=== PATIENT | female | born 1935 | race Caucasian/White ===

== ENCOUNTER 2017-12-01 17:30 | Inpatient (IN) | payer OTHER ==
[2017-12-01] MEDS ORDERED: ACETAMINOPHEN 1000 MG/100 ML VIAL (NON FORMULARY) IVPB ONE (18:50)
--- NOTE | 2017-12-01 18:58 | PDOC ---
History of Present Illness - General Chief Complaint: Shortness of Breath Stated Complaint: DIFFICULTY BREATHING Time Seen by Provider: 12/01/17 18:58 - History of Present Illness Initial Comments: 12/01/17 19:50 The patient is an 82 year old female with a history of HTN, HLD, Afib, Anemia who presents for evaluation of shortness of breath. The patient is somewhat of a poor historian on exam, but reports a several week history of worsening SOB. She states that she was recently diagnosed with a pneumonia, but notes worsening SOB, fevers, and chills despite outpatient management prompting her presentation to the ED for further evaluation. She otherwise denies chest pain , nausea, vomiting, abdominal pain, or changes with urination or bowel movements. Past History - Past Medical History Allergies/Adverse Reactions: Allergies Allergy/AdvReac Type Severity Reaction Status Date / Time Iodine and Iodide Containing Allergy Intermediate Difficulty Verified 12/01/17 17:41 Produc Breathing shrimp Allergy Intermediate Difficulty Verified 12/01/17 17:41 Breathing Penicillins Allergy Verified 12/01/17 17:41 kiwi AdvReac Intermediate Hives Verified 12/01/17 17:41 Home Medications: Ambulatory Orders Albuterol 2.5/Ipratropium 0.5 [Duoneb -] 1 amp NEB RQID #120 amp 09/11/17 Albuterol Sulfate 0.042% [Ventolin 0.042% (Half-Strength) -] 1 amp NEB Q4H PRN # 1 amp 09/11/17 Montelukast Sodium [Singulair] 10 mg PO DAILY #30 tablet 09/11/17 Diltiazem [Cardizem -] 240 mg PO HS 11/16/17 Apixaban [Eliquis] 2.5 mg PO DAILY 12/01/17 Ferrous Sulfate 324 mg PO DAILY 12/01/17 Fluticasone/Vilanterol [Breo Ellipta 100-25 Mcg INH] 1 each IH DAILY PRN Furosemide [Lasix] 80 mg PO DAILY 12/01/17 Metoprolol Tartrate [Lopressor -] 50 mg PO BID 12/01/17 Omeprazole 40 mg PO DAILY 12/01/17 Paroxetine HCl 10 mg PO DAILY 12/01/17 Anemia: Yes (blood trasfusion) Asthma: Yes Cardiac Disorders: Yes (a-fib) COPD: No HTN: Yes Hypercholesterolemia: Yes - Suicide/Smoking/Psychosocial Hx Smoking History: Never smoked Have you smoked in the past 12 months: No Information on smoking cessation initiated: No Hx Alcohol Use: No Drug/Substance Use Hx: No Substance Use Type: None Hx Substance Use Treatment: No Review of Systems - Review of Systems Comments:: 12/01/17 19:53 Constitutional: Fevers, Chills. No fatigue, malaise HEENT: No Rhinorrhea, nasal congestion, visual changes Cardiovascular: No syncope, palpitations, lightheadedness Respiratory: SOB. No Cough, Hemoptysis, Gastrointestinal: No Abdominal pain, Nausea, Vomiting, Constipation, Diarrhea, Melena Genitourinary: No Dysuria, Frequency, Urgency, Hesitancy, Hematuria, Flank pain Musculoskeletal: No Myalgia, arthralgia Skin: No rashes, itching, bruising, pallor Neurologic: No Headache, Dizziness, Numbness, Weakness, or Tingling Psychiatric: No Hallucinations. No SI or HI *Physical Exam - Vital Signs Last Vital Signs Temp Pulse Resp BP Pulse Ox 102.3 F H 106 H 24 130/68 97 12/01/17 18:18 12/01/17 18:48 12/01/17 18:48 12/01/17 18:48 12/01/17 18:48 - Physical Exam Comments: 12/01/17 19:54 General Appearance: Nourished. In Mild Apparent Distress HEENT: EOMI, HILDA. No Pharyngeal Erythema, Tonsillar Exudate, Tonsillar Erythema Neck: No Cervical Lymphadenopathy Respiratory/Chest: Crackles noted to the Right lung base on exam. No Rhonchi, Wheezing Cardiovascular: Regular Rhythm, Regular Rate. No Murmur, Gallops, Rubs Gastrointestinal/Abdominal: Normal Bowel Sounds, Soft. No Guarding, Rebound, Tenderness Musculoskeletal: No CVA Tenderness Extremity: 1+ pitting edema in the lower extremities bilaterally. Normal Capillary Refill Integumentary: Normal Color, Dry, Warm Neurologic: Fully Oriented, Alert, Normal Mood/Affect, Normal Response, ED Treatment Course - LABORATORY CBC & Chemistry Diagram: 12/01/17 18:56 12/01/17 18:56 Medical Decision Making - Medical Decision Making 12/01/17 19:55 The patient is an 82 year old female with a history of HTN, HLD, Afib, Anemia who presents for evaluation of shortness of breath. Differential includes but is not limited to: Pneumonia, Sepsis, Infectious, Metabolic Derangement. Given the patient's history and physical exam, it is likely her symptoms are due to sepsis due to pneumonia. We will obtain a cbc, cmp, vbg, lactate, blood cultures, ua, urine cultures, ekg, chest plain film to evaluate further for possible etiologies. Chest plain film demonstrates a right lower lobe infiltrate as preliminarily read by ER physician. We will treat with iv fluids , iv tylenol, vanc, and levaquin and continue to monitor and reassess while here in the ED. The patient will likely require admission for further management. 12/01/17 21:18 CBC demonstrates a wbc to 20.2. CMP is unremarkable. lactate is elevated to 2.5. We discussed the case with the hospitalist team who accepted the patient for admission. We will continue to monitor and reassess while here in the ED. *DC/Admit/Observation/Transfer Diagnosis at time of Disposition: Sepsis Qualifiers: Sepsis type: sepsis due to unspecified organism Qualified Code(s): A41.9 - Sepsis, unspecified organism Pneumonia Qualifiers: Pneumonia type: due to unspecified organism Laterality: unspecified laterality Lung location: unspecified part of lung Qualified Code(s): J18.9 - Pneumonia, unspecified organism - Discharge Dispostion Condition at time of disposition: Stable Decision to Admit order: Yes - Referrals - Patient Instructions - Post Discharge Activity
[2017-12-01] MEDS ORDERED: ACETAMINOPHEN INJECTION 100 ML IVPB ONE (19:08)
[2017-12-01] MEDS ORDERED: SODIUM CHLORIDE 1,000 ML IV STA (19:18)
--- NOTE | 2017-12-01 19:24 | PDOC ---
Attending Attestation - HPI HPI: 12/01/17 22:26 Pt is a 82 yo F, poor historian with PMHx of HTN, HLD, Afib, Anemia who presents to the ED for worsening SOB. Patient endorses associated fever and chills. Patient failed outpatient management of PNA and presents to the ED for further evaluation. Patient was recently admitted to [facility] for CHF in August 2017. <Deyanira Juarez - Last Filed: 12/01/17 22:27> - Resident Resident Name: Larry Figueroa - ED Attending Attestation I have performed the following: I have examined & evaluated the patient, The case was reviewed & discussed with the resident, I agree w/resident's findings & plan, Exceptions are as noted - HPI HPI: - Physicial Exam PE: 12/01/17 19:23 GENERAL: The patient is in no acute distress. LUNGS: Breath sounds equal, Crackles right base HEART: Irregularly irregular, normal S1 and S2 ABDOMEN: Soft, nontender, normoactive bowel sounds. NEUROLOGICAL: Cranial nerves II through XII grossly intact. Normal speech. No focal neurological deficits. SKIN: Warm, Dry, normal turgor, no rashes or lesions noted. 12/02/17 23:58 12/02/17 23:59 - Medical Decision Making 12/03/17 00:00 Laboratory Tests 12/01/17 12/01/17 12/01/17 18:50 18:56 18:56 WBC 20.7 H Hgb 11.4 D Hct 35.7 D Plt Count 410 Neutrophils % 90.7 H Neutrophils % (Manual) 86.0 H INR 1.28 H Lactic Acid 2.5 H* Alkaline Phosphatase Troponin I B-Natriuretic Peptide 12/01/17 12/01/17 12/01/17 18:56 18:56 18:56 WBC Hgb Hct Plt Count Neutrophils % Neutrophils % (Manual) INR Lactic Acid Alkaline Phosphatase 156 H Troponin I < 0.02 B-Natriuretic Peptide 3187.78 H CXR: RLL infiltrate Will admit Antibiotics Clinical Impression: pneumonia, initial presentation <Martha Mancia - Last Filed: 12/03/17 00:00>
[2017-12-01] MEDS ORDERED: VANCOMYCIN 1,250 MG in DEXTROSE 5%-WATER - 250 ML IVPB ONE (19:25)
[2017-12-01 19:34] LABS: BASO % 0.2 % (0-2.0); EOS % 0.4 % (0-4.5); HEMATOCRIT 35.7 % (32.4-45.2); HEMOGLOBIN 11.4 GM/dL (10.7-15.3); MCH 26.8 pg (25.7-33.7); MCHC 32.1 g/dl (32.0-36.0); MEAN CELL VOLUME 83.6 fl (80-96); MONO % 4.7 % (3.8-10.2); NEUT % 90.7 % (42.8-82.8); PLATELET COUNT 410 K/MM3 (134-434); RBC 4.26 M/mm3 (3.60-5.2); RDW 15.8 % (11.6-15.6); WHITE BLOOD COUNT 20.7 K/mm3 (4.0-10.0)
[2017-12-01 19:53] LABS: INR 1.28 (0.82-1.09); PROTHROMBIN TIME (PATIENT) 14.5 SEC (9.7-13.0)
[2017-12-01 19:56] LABS: ACTIVATED PTT 25.8 SECONDS (25.2-36.5)
[2017-12-01 20:04] LABS: ALBUMIN 3.6 g/dl (3.4-5.0); ALK PHOS 156 U/L (45-117); ANION GAP 11 (8-16); BILIRUBIN,TOTAL 0.7 mg/dL (0.2-1.0); BLOOD UREA NITROGEN 22 mg/dL (7-18); CALCIUM 8.8 mg/dL (8.5-10.1); CHLORIDE 97 mmol/L (98-107); CO2 31 mmol/L (21-32); CREATININE 1.1 mg/dL (0.55-1.02); GLUCOSE,RANDOM 111 mg/dL (74-106); POTASSIUM 3.7 mmol/L (3.5-5.1); SGOT/AST 75 U/L (15-37); SGPT/ALT 64 U/L (12-78); SODIUM 139 mmol/L (136-145); TOT PROT 7.2 g/dl (6.4-8.2)
[2017-12-01 20:09] LABS: PLATELET ESTIMATE SLT INCREASE
[2017-12-01 20:29] LABS: URINE APPEARANCE CLEAR; URINE BILIRUBIN NEGATIVE (<2.0 mg/dL); URINE COLOR LTYELLOW; URINE GLUCOSE (UA) NEGATIVE (NEGATIVE); URINE KETONE NEGATIVE (NEGATIVE); URINE LEUK ESTERASE NEGATIVE (NEGATIVE); URINE NITRITE NEGATIVE (NEGATIVE); URINE UROBILINOGEN NEGATIVE mg/dL (0.2-1.0)
[2017-12-01 20:31] LABS: URINE PROTEIN 1+ (NEGATIVE)
[2017-12-01 20:32] LABS: URINE HYALINE CAST 4 /lpf; URINE MUCUS RARE
[2017-12-01] MEDS ORDERED: VANCOMYCIN 1 GRAM (PRE-DOCKED) 1,000 MG/250 ML BAG IVPB ONE (22:01)
--- NOTE | 2017-12-01 22:09 | HP ---
CHIEF COMPLAINT: headache, chest discomfort PCP: Anatoly HISTORY OF PRESENT ILLNESS: This is an 82 year old female with a significant PMH of Pneumonia in August who presented to the ED with shortness of breath, chest pain, headache. Pt also reports that she vomited today. ER course was notable for: (1) WBC 20.7 (2) CXR c/w PNA (3) lactic acid 2.5 Recent Travel: pt denies PAST MEDICAL HISTORY: HTN, HLD, afib, anemia, asthma, pneumonia PAST SURGICAL HISTORY: B/L cataract removal varicose vein surgery Social History: Smoking: pt denies Alcohol: pt denies Drugs: pt denies Family History: mother in her 80s, h/o asthma, "heart problems" father age 40, lung problem son age 51, [place] brother , liver disease, h/o ETOH Allergies Iodine and Iodide Containing Produc Allergy (Intermediate, Verified 12/01/17 17: 41) Difficulty Breathing shrimp Allergy (Intermediate, Verified 12/01/17 17:41) Difficulty Breathing Penicillins Allergy (Verified 12/01/17 17:41) kiwi Adverse Reaction (Intermediate, Verified 12/01/17 17:41) Hives HOME MEDICATIONS: 3 Medication Instructions Recorded Albuterol 2.5/Ipratropium 0.5 1 amp NEB RQID #120 amp 09/11/17 [Duoneb -] Albuterol Sulfate 0.042% [Ventolin 1 amp NEB Q4H PRN #1 amp 09/11/17 0.042% (Half-Strength) -] Montelukast Sodium [Singulair] 10 mg PO DAILY #30 tablet 09/11/17 Diltiazem [Cardizem -] 240 mg PO HS 11/16/17 Apixaban [Eliquis] 2.5 mg PO DAILY 12/01/17 Ferrous Sulfate 324 mg PO DAILY 12/01/17 Fluticasone/Vilanterol [Breo 1 each IH DAILY PRN 12/01/17 Ellipta 100-25 Mcg INH] Furosemide [Lasix] 80 mg PO DAILY 12/01/17 Metoprolol Tartrate [Lopressor -] 50 mg PO BID 12/01/17 Omeprazole 40 mg PO DAILY 12/01/17 Paroxetine HCl 10 mg PO DAILY 12/01/17 REVIEW OF SYSTEMS CONSTITUTIONAL: Present: generalized weakness, malaise Absent: fever, chills, diaphoresis, loss of appetite, weight change HEENT: Absent: rhinorrhea, nasal congestion, throat pain, throat swelling, difficulty swallowing, mouth swelling, ear pain, eye pain, visual changes CARDIOVASCULAR: Present: chest pain Absent: syncope, palpitations, irregular heart rate, lightheadedness, peripheral edema RESPIRATORY: Present: cough, shortness of breath Absent: dyspnea with exertion, orthopnea, wheezing, stridor, hemoptysis GASTROINTESTINAL: Present: vomiting Absent: abdominal pain, abdominal distension, nausea, diarrhea, constipation, melena, hematochezia GENITOURINARY: Absent: dysuria, frequency, urgency, hesitancy, hematuria, flank pain, genital pain MUSCULOSKELETAL: Absent: myalgia, arthralgia, joint swelling, back pain, neck pain SKIN: Absent: rash, itching, pallor HEMATOLOGIC/IMMUNOLOGIC: Absent: easy bleeding, easy bruising, lymphadenopathy, frequent infections ENDOCRINE: Absent: unexplained weight gain, unexplained weight loss, heat intolerance, cold intolerance NEUROLOGIC: Absent: headache, focal weakness or paresthesias, dizziness, unsteady gait, seizure, mental status changes, bladder or bowel incontinence PSYCHIATRIC: Absent: anxiety, depression, suicidal or homicidal ideation, hallucinations. PHYSICAL EXAMINATION Vital Signs - 24 hr 3 12/01/17 12/01/17 12/01/17 17:37 18:00 18:18 Temperature 102.3 F H Pulse Rate 78 102 H Pulse Rate [ 104 H Apical] Respiratory 28 H 20 20 Rate Blood Pressure 130/70 Blood Pressure 136/63 [Right Arm] O2 Sat by Pulse 100 96 96 Oximetry (%) 3 12/01/17 18:48 Temperature Pulse Rate Pulse Rate [ 106 H Apical] Respiratory 24 Rate Blood Pressure Blood Pressure 130/68 [Right Arm] O2 Sat by Pulse 97 Oximetry (%) GENERAL: Awake, alert, and fully oriented, in no acute distress. HEAD: Normal with no signs of trauma. EYES: Pupils equal, round and reactive to light, extraocular movements intact, sclera anicteric, conjunctiva clear. No lid lag. EARS, NOSE, THROAT: Ears normal, nares patent, oropharynx clear without exudates. Moist mucous membranes. NECK: Normal range of motion, supple without lymphadenopathy, JVD, or masses. LUNGS: Breath sounds equal, clear to auscultation bilaterally. No wheezes, and no crackles. No accessory muscle use. diminished bases HEART: Irregular rate and rhythm, normal S1 and S2 without murmur, rub or gallop. ABDOMEN: Soft, nontender, not distended, normoactive bowel sounds, no guarding, no rebound, no masses. No hepatomegaly or splenomegaly. MUSCULOSKELETAL: Normal range of motion at all joints. No bony deformities or tenderness. No CVA tenderness. UPPER EXTREMITIES: 2+ pulses, warm, well-perfused. No cyanosis. No clubbing. No peripheral edema. LOWER EXTREMITIES: 2+ pulses, warm, well-perfused. No calf tenderness. No peripheral edema. NEUROLOGICAL: Cranial nerves II-XII intact. Normal speech. Normal gait. PSYCHIATRIC: Cooperative. Good eye contact. Appropriate mood and affect. SKIN: Warm, dry, normal turgor, no rashes or lesions noted, normal capillary refill. Laboratory Results - last 24 hr 3 12/01/17 12/01/17 12/01/17 18:56 18:56 18:56 WBC 20.7 H RBC 4.26 Hgb 11.4 D Hct 35.7 D MCV 83.6 MCH 26.8 MCHC 32.1 RDW 15.8 H D Plt Count 410 MPV 8.0 Absolute Neuts (auto) 18.8 Neutrophils % 90.7 H Neutrophils % (Manual) 86.0 H Band Neutrophils % 7.0 Lymphocytes % 4.0 L D Lymphocytes % (Manual) 4.0 L D Monocytes % 4.7 D Monocytes % (Manual) 3 L Eosinophils % 0.4 D Basophils % 0.2 Nucleated RBC % 0 Platelet Estimate Slt increase Platelet Comment No clumping noted PT with INR 14.50 H INR 1.28 H PTT (Actin FS) 25.8 L Sodium 139 Potassium 3.7 Chloride 97 L Carbon Dioxide 31 Anion Gap 11 BUN 22 H Creatinine 1.1 H Creat Clearance w eGFR 47.55 Random Glucose 111 H Lactic Acid 2.5 H* Calcium 8.8 Total Bilirubin 0.7 D AST 75 H ALT 64 Alkaline Phosphatase 156 H Troponin I < 0.02 B-Natriuretic Peptide 3187.78 H Total Protein 7.2 Albumin 3.6 Urine Color Urine Appearance Urine pH Ur Specific [place] Urine Protein Urine Glucose (UA) Urine Ketones Urine Blood Urine Nitrite Urine Bilirubin Urine Urobilinogen Ur Leukocyte Esterase Urine WBC (Auto) Urine RBC (Auto) Hyaline Casts Urine Mucus 3 Urine Color Ltyellow 12/01/17 20:18 Urine Appearance Clear 12/01/17 20:18 Urine pH 5.0 (5.0-8.0) 12/01/17 20:18 Ur Specific [place] 1.011 (1.001-1.035) 12/01/17 20:18 Urine Protein 1+ (NEGATIVE) H 12/01/17 20:18 Urine Glucose (UA) Negative (NEGATIVE) 12/01/17 20:18 Urine Ketones Negative (NEGATIVE) 12/01/17 20:18 Urine Blood 1+ (NEGATIVE) H 12/01/17 20:18 Urine Nitrite Negative (NEGATIVE) 12/01/17 20:18 Urine Bilirubin Negative (<2.0 mg/dL) 12/01/17 20:18 Ur Leukocyte Esterase Negative (NEGATIVE) 12/01/17 20:18 Urine WBC (Auto) 2 Urine RBC (Auto) 3 Hyaline Casts 4 Urine Mucus Rare 12/01/17 20:18 ECG atrial fibrillation vent rate 94, QTC [address]/T wave changes low voltage qrs Radiology Reports CXR portable possible infiltrate RLL, + vascular congestion, final read pending ASSESSMENT/PLAN: 82yF with PMH HTN, HLD, afib, anemia, asthma, pneumonia presented to the ED with headache, chest discomfort, fever, cough. Sepsis secondary to Pneumonia - levaquin and vancomycin given in ED, will cont levaquin daily, renal dose 750 QOD - lactic acid slightly elevated, given IVF, repeat ordered, will hold on further IVF as CXR appears congested - tylenol for fever - follow cultures asthma - cont home breo-ellipta or convert to formulary equivalent - cont duonebs PRN - cont singular chest pain - likely due to pna - monitor on tele given HTN, HLD, afib history - trend troponins Afib - cont home meds for rate control - cont eliquis, unsure why she is only on 2.5mg, f/u with PCP regarding dose HTN/HLD - cont home meds DVT PPX - cont home eliquis FEN - hold IV fluids, encourage po - BMP in am - low sodium diet as tolerated Dispo: Pt currently requires further inpatient management of her emergent condition Visit type - Emergency Visit Emergency Visit: Yes ED Registration Date: 12/01/17 Care time: The patient presented to the Emergency Department on the above date and was hospitalized for further evaluation of their emergent condition. - New Patient This patient is new to me today: Yes Date on this admission: 12/01/17 - Critical Care Critical Care patient: No Hospitalist Screening - Colonoscopy Questionnaire Colonoscopy Questionnaire: Colonoscopy Questionnaire - Patient: 50 - 75 years old and never had a screening colonoscopy: No History of colon or rectal polyps, or CA: Unknown History of IBD, Crohn's disease or UC: Unknown History of abdominal radiation therapy as a child: Unknown - Relative: 1 with colon or rectal CA, or polyps at age 60 or younger: Unknown Colon or rectal CA diagnosed at age 45 or younger: Unknown Multiple relatives with colon or rectal CA: Unknown - Outcome: Screening Result: Negative Screen
[2017-12-01] MEDS: METOPROLOL TARTRATE 50 MG TABLET (FP) PO SCH (22:26)
[2017-12-02] MEDS: APIXABAN 2.5 MG TABLET PO SCH ×3 (00:40→21:07)
[2017-12-02] MEDS: MONTELUKAST NA 10 MG TABLET PO SCH ×2 (00:40→21:07)
[2017-12-02] MEDS: ALBUTEROL SO4 2.5/IPRATROPIUM 0.5 INH SOL 3 ML VIAL.NEB. NEB PRN ×2 (01:34→21:51)
[2017-12-02] MEDS ORDERED: ONDANSETRON 4 MG/2 ML VIAL IVPB PRN (01:34)
[2017-12-02] MEDS: ACETAMINOPHEN 325 MG TABLET (FP) PO PRN (02:21)
[2017-12-02 08:04] LABS: BASO % 0.2 % (0-2.0); HEMOGLOBIN 10.4 GM/dL (10.7-15.3); LYMPH % 4.9 % (8-40); MCH 27.3 pg (25.7-33.7); MCHC 32.5 g/dl (32.0-36.0); MEAN CELL VOLUME 83.8 fl (80-96); MEAN PLT VOLUME 7.4 fl (7.5-11.1); NEUT % 91.9 % (42.8-82.8); PLATELET COUNT 275 K/MM3 (134-434); RBC 3.82 M/mm3 (3.60-5.2); RDW 15.7 % (11.6-15.6); WHITE BLOOD COUNT 17.2 K/mm3 (4.0-10.0)
[2017-12-02 08:31] LABS: CHLORIDE 100 mmol/L (98-107); POTASSIUM 3.6 mmol/L (3.5-5.1); SODIUM 139 mmol/L (136-145)
[2017-12-02 08:49] LABS: ANION GAP 9 (8-16); BLOOD UREA NITROGEN 21 mg/dL (7-18); CALCIUM 8.6 mg/dL (8.5-10.1); CO2 30 mmol/L (21-32); GLUCOSE,RANDOM 118 mg/dL (74-106); PHOSPHOROUS 3.8 mg/dL (2.5-4.9)
[2017-12-02 09:30] LABS: PLATELET ESTIMATE NORMAL
[2017-12-02] MEDS ORDERED: FUROSEMIDE 40 MG TABLET (FP) PO SCH (10:00)
[2017-12-02] MEDS: FERROUS SO4 325 MG TABLET (FP) PO SCH (10:10)
[2017-12-02] MEDS: PANTOPRAZOLE 40 MG TABLET (FP) PO SCH (10:10)
[2017-12-02] MEDS: METOPROLOL TARTRATE 50 MG TABLET (FP) PO SCH ×2 (10:10→21:07)
[2017-12-02] MEDS: PARoxetine HCL 10 MG TABLET (FP) PO SCH (11:26)
--- NOTE | 2017-12-02 12:45 | PN ---
Progress Note, Physician Chief Complaint: AWAKE ALERT FAMILY BEDSIDE SOB ON 02 SUPPORT - Current Medication List Current Medications: Active Medications Acetaminophen (Tylenol -) 650 mg PO Q4H PRN PRN Reason: FEVER Last Admin: 12/02/17 02:21 Dose: 650 mg Albuterol/Ipratropium (Duoneb -) 1 amp NEB Q6H PRN PRN Reason: ASTHMA Last Admin: 12/02/17 01:34 Dose: 1 amp Apixaban (Eliquis -) 2.5 mg PO BID [facility] Last Admin: 12/02/17 10:09 Dose: 2.5 mg Diltiazem HCl (Cardizem Cd -) 240 mg PO [facility] Last Admin: 12/01/17 22:25 Dose: Not Given Ferrous Sulfate (Feosol -) 325 mg PO DAILY [facility] Last Admin: 12/02/17 10:10 Dose: 325 mg Furosemide (Lasix -) 80 mg PO DAILY [facility] Last Admin: 12/02/17 10:10 Dose: 80 mg Levofloxacin (Levaquin 750 Mg Premixed Ivpb -) 750 mg in 150 mls @ 150 mls/hr IVPB Q48H [facility]; Protocol Metoprolol Tartrate (Lopressor -) 50 mg PO BID [facility] Last Admin: 12/02/17 10:10 Dose: 50 mg Montelukast Sodium (Singulair -) 10 mg PO [facility] Last Admin: 12/02/17 00:40 Dose: 10 mg Non-Formulary Medication (Fluticasone/Vilanterol [Breo Ellipta 100-25 Mcg Inh]) 1 each IH [facility] Ondansetron HCl (Zofran Injection) 4 mg IVPB Q6H PRN PRN Reason: NAUSEA Last Admin: 12/02/17 02:21 Dose: 4 mg Pantoprazole Sodium (Protonix -) 40 mg PO DAILY [facility] Last Admin: 12/02/17 10:10 Dose: 40 mg Paroxetine HCl (Paxil -) 10 mg PO DAILY [facility] Last Admin: 12/02/17 11:26 Dose: 10 mg - Objective Vital Signs: Vital Signs Temperature 97.9 F 12/02/17 10:00 Pulse Rate 78 12/02/17 10:00 Respiratory Rate 20 12/02/17 10:00 Blood Pressure 142/60 12/02/17 10:00 O2 Sat by Pulse Oximetry (%) 99 12/02/17 09:00 Constitutional: Yes: Mild Distress Eyes: Yes: WNL HENT: Yes: WNL Neck: Yes: WNL Cardiovascular: Yes: WNL Respiratory: Yes: Cough, On Nasal O2, SOB on Exertion Gastrointestinal: Yes: WNL Genitourinary: Yes: WNL Musculoskeletal: Yes: WNL Extremities: Yes: WNL Edema: Yes Edema: LLE: 1+, RLE: 1+ Peripheral Pulses WNL: Yes Integumentary: Yes: Pressure Ulcer Wound/Incision: Yes: Open to air (STAGE 2 ULCER LEFT LOWER EXTREMITY) Neurological: Yes: WNL ...Motor Strength: WNL Psychiatric: Yes: WNL Labs: CBC, BMP 12/02/17 07:30 12/02/17 07:30 INR, PTT INR 1.28 (0.82-1.09) H 12/01/17 18:56 Problem List - Problems (1) Pneumonia Code(s): J18.9 - PNEUMONIA, UNSPECIFIED ORGANISM Qualifiers: Pneumonia type: due to unspecified organism Laterality: unspecified laterality Lung location: unspecified part of lung Qualified Code(s): J18.9 - Pneumonia, unspecified organism (2) Sepsis Code(s): A41.9 - SEPSIS, UNSPECIFIED ORGANISM Qualifiers: Sepsis type: sepsis due to unspecified organism Qualified Code(s): A41.9 - Sepsis, unspecified organism (3) Acute kidney injury Code(s): N17.9 - ACUTE KIDNEY FAILURE, UNSPECIFIED (4) Anemia Code(s): D64.9 - ANEMIA, UNSPECIFIED Qualifiers: Anemia type: iron deficiency (5) Aortic stenosis Code(s): I35.0 - NONRHEUMATIC AORTIC (VALVE) STENOSIS Qualifiers: Cardiac valve disease etiology: nonrheumatic Qualified Code(s): I35.0 - Nonrheumatic aortic (valve) stenosis (6) CHF (congestive heart failure) Code(s): I50.9 - HEART FAILURE, UNSPECIFIED Qualifiers: Heart failure type: diastolic Heart failure chronicity: acute on chronic Qualified Code(s): I50.33 - Acute on chronic diastolic (congestive) heart failure (7) Dyspnea Code(s): R06.00 - DYSPNEA, UNSPECIFIED (8) Leg ulcer Code(s): L97.909 - NON-PRS CHRONIC ULC UNSP PRT OF UNSP LOW LEG W UNSP SEVERITY (9) PAF (paroxysmal atrial fibrillation) Code(s): I48.0 - PAROXYSMAL ATRIAL FIBRILLATION Assessment/Plan CHECK ECHO FOR EF% CARDIOLOGY EVAL IV ABX NEBS 02 SUPPORT ULCER LEFT LEG WOUND CARE DVT PROPHYLAXIS ELEVATED LFT'S STATINS ON HOLD
[2017-12-02] MEDS: COLLAGENASE CLOSTRIDIUM HIST. 30 GRAMS TUBE TP SCH (13:50)
--- NOTE | 2017-12-02 19:38 | EKG ---
Test Reason : Blood Pressure : / mmHG Vent. Rate : 096 BPM Atrial Rate : 227 BPM P-R Int : 000 ms QRS Dur : 058 ms QT Int : 340 ms P-R-T Axes : 000 040 099 degrees QTc Int : 429 ms ATRIAL FIBRILLATION LOW VOLTAGE QRS SEPTAL INFARCT , AGE UNDETERMINED ABNORMAL ECG WHEN COMPARED WITH ECG OF 29-AUG-2017 18:23, ATRIAL FIBRILLATION HAS REPLACED SINUS RHYTHM SEPTAL INFARCT IS NOW PRESENT NONSPECIFIC T WAVE ABNORMALITY NOW EVIDENT IN INFERIOR LEADS NONSPECIFIC T WAVE ABNORMALITY NOW EVIDENT IN ANTERIOR LEADS Confirmed by POP REYES, MORENO ([id number]) on 12/02/2017 7:38:01 PM Referred By: Confirmed By:MORENO LORD MD
[2017-12-03 07:02] LABS: HEMATOCRIT 28.4 % (32.4-45.2); HEMOGLOBIN 9.5 GM/dL (10.7-15.3); MCH 27.9 pg (25.7-33.7); MCHC 33.4 g/dl (32.0-36.0); MEAN CELL VOLUME 83.3 fl (80-96); MEAN PLT VOLUME 7.6 fl (7.5-11.1); PLATELET COUNT 226 K/MM3 (134-434); RBC 3.41 M/mm3 (3.60-5.2); RDW 15.7 % (11.6-15.6); WHITE BLOOD COUNT 7.9 K/mm3 (4.0-10.0)
[2017-12-03 07:36] LABS: ALBUMIN 2.7 g/dl (3.4-5.0); ANION GAP 9 (8-16); BLOOD UREA NITROGEN 18 mg/dL (7-18); CALCIUM 8.4 mg/dL (8.5-10.1); CHLORIDE 98 mmol/L (98-107); CO2 32 mmol/L (21-32); CREATININE 0.9 mg/dL (0.55-1.02); GLUCOSE,RANDOM 108 mg/dL (74-106); POTASSIUM 3.5 mmol/L (3.5-5.1); SGOT/AST 40 U/L (15-37); SGPT/ALT 55 U/L (12-78); SODIUM 139 mmol/L (136-145)
[2017-12-03 07:38] LABS: ALK PHOS 99 U/L (45-117); BILIRUBIN,TOTAL 0.7 mg/dL (0.2-1.0); TOT PROT 5.8 g/dl (6.4-8.2)
[2017-12-03] MEDS: ALBUTEROL SO4 2.5/IPRATROPIUM 0.5 INH SOL 3 ML VIAL.NEB. NEB PRN (08:02)
--- NOTE | 2017-12-03 09:48 | CON.CARD ---
Consult Consult Specialty:: Cardiology for [place] Referred by:: Kyler Watts Reason for Consultation:: CHF, afib - History of Present Illness Chief Complaint: Dyspnea History of Present Illness: 82 year old female with a history of paroxysmal atrial fibrillation on Xarelto, hypertension, hyperlipidemia, asthma, anemia, diastolic CHF, mod admitted with fever, SOB, chest discomfort, fever and cough referable to RLL PNA, feels better today, denies palpitations, near or true syncope, orthopnea, PND or LE edema. Sees Berto Centeno in office. - History Source History Provided By: Patient Limitations to Obtaining History: No Limitations - Past Medical History Cardio/Vascular: Yes: AFIB, HTN, Hyperlipdemia Pulmonary: Yes: Asthma, Bronchitis - Past Surgical History Past Surgical History: Yes: Cataract Removal - Alcohol/Substance Use Hx Alcohol Use: No - Smoking History Smoking history: Never smoked Have you smoked in the past 12 months: No Home Medications - Allergies Allergies/Adverse Reactions: Allergies Allergy/AdvReac Type Severity Reaction Status Date / Time Iodine and Iodide Containing Allergy Intermediate Difficulty Verified 12/01/17 17:41 Produc Breathing shrimp Allergy Intermediate Difficulty Verified 12/01/17 17:41 Breathing Penicillins Allergy Verified 12/01/17 17:41 kiwi AdvReac Intermediate Hives Verified 12/01/17 17:41 - Home Medications Home Medications: Ambulatory Orders Albuterol 2.5/Ipratropium 0.5 [Duoneb -] 1 amp NEB RQID #120 amp 09/11/17 Albuterol Sulfate 0.042% [Ventolin 0.042% (Half-Strength) -] 1 amp NEB Q4H PRN # 1 amp 09/11/17 Montelukast Sodium [Singulair] 10 mg PO DAILY #30 tablet 09/11/17 Diltiazem [Cardizem -] 240 mg PO HS 11/16/17 Apixaban [Eliquis] 2.5 mg PO DAILY 12/01/17 Ferrous Sulfate 324 mg PO DAILY 12/01/17 Fluticasone/Vilanterol [Breo Ellipta 100-25 Mcg INH] 1 each IH DAILY PRN Furosemide [Lasix] 80 mg PO DAILY 12/01/17 Metoprolol Tartrate [Lopressor -] 50 mg PO BID 12/01/17 Omeprazole 40 mg PO DAILY 12/01/17 Paroxetine HCl 10 mg PO DAILY 12/01/17 Review of Systems - Review of Systems Constitutional: reports: Fever Cardiovascular: reports: Chest Pain Respiratory: reports: Cough, SOB Vital Signs: Vital Signs Temperature 98 F 12/03/17 05:34 Pulse Rate 108 H 12/03/17 05:34 Respiratory Rate 20 12/03/17 05:34 Blood Pressure 133/70 12/03/17 05:34 O2 Sat by Pulse Oximetry (%) 97 12/02/17 21:00 Constitutional: Yes: No Distress, Calm Neck: Yes: Supple Respiratory: Yes: Regular, Diminished, On Nasal O2 Gastrointestinal: Yes: Normal Bowel Sounds, Soft Cardiovascular: Yes: Pulse Irregular JVD: No Carotid Bruit: No Heart Sounds: Yes: S1, S2 Murmur: Yes: Systolic Murmur, Grade 2 Edema: No - Other Data Labs, Other Data: CBC, BMP 12/03/17 06:45 12/03/17 06:45 INR, PTT INR 1.28 (0.82-1.09) H 12/01/17 18:56 Afib @ 96 Ejection Fraction %: LVEF > or = 40 % Imaging - Results Chest X-ray: Report Reviewed (Right base infiltrate and fluid) Problem List - Problems (1) Hyperlipidemia Code(s): E78.5 - HYPERLIPIDEMIA, UNSPECIFIED Qualifiers: Hyperlipidemia type: pure hypercholesterolemia Qualified Code(s): E78.00 - Pure hypercholesterolemia, unspecified; E78.0 - Pure hypercholesterolemia (2) Diastolic heart failure Code(s): I50.30 - UNSPECIFIED DIASTOLIC (CONGESTIVE) HEART FAILURE Qualifiers: Heart failure chronicity: acute on chronic Qualified Code(s): I50.33 - Acute on chronic diastolic (congestive) heart failure (3) Hypertensive cardiopathy Code(s): I11.9 - HYPERTENSIVE HEART DISEASE WITHOUT HEART FAILURE Qualifiers: Heart failure presence: with heart failure (4) Pneumonia Code(s): J18.9 - PNEUMONIA, UNSPECIFIED ORGANISM Qualifiers: Pneumonia type: due to unspecified organism Laterality: unspecified laterality Lung location: unspecified part of lung Qualified Code(s): J18.9 - Pneumonia, unspecified organism (5) Aortic stenosis Code(s): I35.0 - NONRHEUMATIC AORTIC (VALVE) STENOSIS Qualifiers: Cardiac valve disease etiology: nonrheumatic Qualified Code(s): I35.0 - Nonrheumatic aortic (valve) stenosis (6) CHF (congestive heart failure) Code(s): I50.9 - HEART FAILURE, UNSPECIFIED Qualifiers: Heart failure type: diastolic Heart failure chronicity: acute on chronic Qualified Code(s): I50.33 - Acute on chronic diastolic (congestive) heart failure (7) Dyspnea Code(s): R06.00 - DYSPNEA, UNSPECIFIED Qualifiers: Dyspnea type: dyspnea on exertion Qualified Code(s): R06.09 - Other forms of dyspnea (8) PAF (paroxysmal atrial fibrillation) Code(s): I48.0 - PAROXYSMAL ATRIAL FIBRILLATION Assessment/Plan Echo 08/30/2017: Normal LV size, wall motion and systolic function. Normal RV. Normal LA and RA. Moderate aortic stenosis with ANDI = 0.77. Peak and mean gradients are 49 and 29 mmHg, respectively. Echo October 2017: Normal LV and RV size and fxn, mod (45/28 mmHg ANDI 0.6 cm^2), mild-mod TR, no pulm HTN 1. RLL PNA with leukocytosis improving 2. Moderate aortic valve stenosis 3. Chronic diastolic heart failure 4. Persistent atrial fibrillation rate-controlled on NOAC 5. Mild esophagitis P:1. BD, O2, empiric abx course per C&S, singulair 2. Continue Lopressor 50 bid, Cardizem 240 qhs, increase Eliquis 5 bid (wt>60 Kg , Cr<1.5,age>80), resume Lipitor 10 qhs as LFT abnl have resolved 3. Decrease diuresis with monitor diuretic response, renal fxn and electrolytes , GI prophylaxis 4. F/u with Dr. Centeno upon d/c, thank you for consultative opportunity
[2017-12-03] MEDS ORDERED: APIXABAN 2.5 MG TABLET PO SCH (10:06)
[2017-12-03] MEDS: METOPROLOL TARTRATE 50 MG TABLET (FP) PO SCH ×2 (10:35→21:34)
[2017-12-03] MEDS: COLLAGENASE CLOSTRIDIUM HIST. 30 GRAMS TUBE TP SCH (10:35)
[2017-12-03] MEDS: PANTOPRAZOLE 40 MG TABLET (FP) PO SCH (10:35)
[2017-12-03] MEDS: PARoxetine HCL 10 MG TABLET (FP) PO SCH (10:35)
[2017-12-03] MEDS: FERROUS SO4 325 MG TABLET (FP) PO SCH (10:35)
--- NOTE | 2017-12-03 11:47 | PN ---
Progress Note (short form) - Note Progress Note: PULMONARY CONSULTATION DICTATED 12/03/17 IMP RLL PNEUMONIA CHF AFIB H/O ASTHMA/BRONCHITIS ANEMIA ELEVATED LACTATE LEVEL HTN HLD PLAN IV ABX INHALED BRONCHODILATORS O2 LASIX CULTURES F/U CHEST X-RAYS TREND LACTATE CHEST CT URINARY ANTIGENS DR VALDES Problem List - Problems (1) Diastolic heart failure Code(s): I50.30 - UNSPECIFIED DIASTOLIC (CONGESTIVE) HEART FAILURE Qualifiers: Heart failure chronicity: acute on chronic Qualified Code(s): I50.33 - Acute on chronic diastolic (congestive) heart failure (2) Hyperlipidemia Code(s): E78.5 - HYPERLIPIDEMIA, UNSPECIFIED Qualifiers: Hyperlipidemia type: pure hypercholesterolemia Qualified Code(s): E78.00 - Pure hypercholesterolemia, unspecified; E78.0 - Pure hypercholesterolemia (3) Hypertensive cardiopathy Code(s): I11.9 - HYPERTENSIVE HEART DISEASE WITHOUT HEART FAILURE Qualifiers: Heart failure presence: with heart failure (4) Pneumonia Code(s): J18.9 - PNEUMONIA, UNSPECIFIED ORGANISM Qualifiers: Pneumonia type: due to unspecified organism Laterality: unspecified laterality Lung location: unspecified part of lung Qualified Code(s): J18.9 - Pneumonia, unspecified organism (5) Anemia Code(s): D64.9 - ANEMIA, UNSPECIFIED Qualifiers: Anemia type: iron deficiency (6) Aortic stenosis Code(s): I35.0 - NONRHEUMATIC AORTIC (VALVE) STENOSIS Qualifiers: Cardiac valve disease etiology: nonrheumatic Qualified Code(s): I35.0 - Nonrheumatic aortic (valve) stenosis (7) CHF (congestive heart failure) Code(s): I50.9 - HEART FAILURE, UNSPECIFIED Qualifiers: Heart failure type: diastolic Heart failure chronicity: acute on chronic Qualified Code(s): I50.33 - Acute on chronic diastolic (congestive) heart failure (8) Cough with fever Code(s): R05 - COUGH; R50.9 - FEVER, UNSPECIFIED (9) Dyspnea Code(s): R06.00 - DYSPNEA, UNSPECIFIED Qualifiers: Dyspnea type: dyspnea on exertion Qualified Code(s): R06.09 - Other forms of dyspnea (10) PAF (paroxysmal atrial fibrillation) Code(s): I48.0 - PAROXYSMAL ATRIAL FIBRILLATION
--- NOTE | 2017-12-03 12:40 | CONS ---
DATE OF CONSULTATION: 12/03/2017 REFERRING PHYSICIAN: Kyler Watts MD HISTORY: The patient is an 82-year-old [place] female with past medical history of hypertension, hyperlipidemia, atrial fibrillation, anemia, bronchitis, aortic stenosis, diastolic heart failure recently hospitalized at [facility] secondary to bronchitis as well as CHF who was readmitted on December 01 with the complaint of sudden onset of chills, shortness of breath, fever, and chest discomfort. She also complained of cough nonproductive. She presented to the emergency room as above. In the ER, she was noted to have a right lower lobe pneumonia. She was admitted to the floor. She was started on broad-spectrum antibiotics. She was evaluated by Dr. Luong of Cardiology. The patient was continued on Lopressor, Cardizem, and Eliquis. The patient denies any history of smoking. There is no history of occupational exposures. She recently travelled to [facility] in August 2017. She states that prior to this sudden onset of chills she was feeling well without any shortness of breath or chest congestion. PAST MEDICAL HISTORY: Again, includes atrial fibrillation, hypertension, aortic stenosis, hyperlipidemia, asthma, bronchitis, anemia, diastolic CHF as well as pneumonia. REVIEW OF SYSTEMS: Positive cough, positive shortness of breath, positive chest congestion, positive fever. No chills, no hemoptysis, no abdominal pain, no lower extremity edema. CURRENT MEDICATIONS: Include Breo Ellipta, Zofran, Tylenol, Levaquin, Eliquis, Paxil, DuoNeb, Lopressor, Cardizem, Lipitor, Feosol, Singulair, Lasix, Protonix, and Santyl. PHYSICAL EXAMINATION: General: The patient is an elderly white female well-developed, awake and alert in no acute distress. Vital Signs: She is afebrile. Blood pressure is 112/64, respiratory rate 18, O2 saturation 97% on room air. HEENT: Normocephalic and atraumatic. Neck: Supple. Heart: Irregular with S1, S2. Chest: A few scattered rhonchi bilaterally. Abdomen: Soft. Bowel sounds positive. Extremities: No cyanosis or edema. LABORATORIES: WBC 7.9, hemoglobin 9.5, hematocrit 28.4. Electrolytes: BUN 18, creatinine 0.9. Chest x-ray reveals right infiltrate in the right base, cardiomegaly, small right pleural effusion. On x-ray the infiltrate in the right base is new as compared to previous exam August 2017. BNP 3187. IMPRESSION: 1. Cough, chest congestion, fever, likely pneumonia right lower lobe. 2. Mild congestive heart failure. 3. Atrial fibrillation. 4. Hypertension. 5. History of asthma/bronchitis. 6. Anemia. 7. Hyperlipidemia. 8. Elevated lactate level. PLAN: IV antibiotics. Inhaled bronchodilators. Lasix as needed. Trend lactate. CT scan of the chest. Cultures. DANIELA VALDES M.D. [id number]
--- NOTE | 2017-12-03 13:47 | PN ---
Progress Note (short form) - Note Progress Note: ID Consult dictated RLL pneumonia Possible sepsis secondary to pneumonia PCN allergy Non- healing LE ulcer Cellulitis L LE Await sepsis work up Empiric levaquin/ vancomycin
[2017-12-03] MEDS ORDERED: FUROSEMIDE 40 MG/4 ML INJECTABLE VIAL IVPUSH SCH (14:00)
[2017-12-03] MEDS: VANCOMYCIN 1,000 MG in DEXTROSE 5%-WATER - 250 ML IVPB SCH (15:41)
--- NOTE | 2017-12-03 16:26 | CONS ---
DATE OF CONSULTATION: DATE OF DICTATION: 12/03/2017 The patient is an 82-year-old female evaluated for pneumonia. HISTORY: She was admitted to the hospital on December 01, 2017 with worsening shortness of breath. According to the note she was recently diagnosed with pneumonia and treated as an outpatient with oral antibiotic therapy. Despite the treatment she became increasingly short of breath and had experienced fever and chills. The patient developed an episode of nausea and vomiting. She appears comfortable at rest in no acute respiratory distress. She does have a cough which is productive of whitish sputum. She denies any hemoptysis and has no complaints of chest pain. On initial evaluation she was noted to have a white blood cell count of 20,000. She was empirically treated with vancomycin and Levaquin. She lives at home with her daughter. She denies ill contacts. No known ill family members. She is a nonsmoker. Positive travel to [facility]. She is a nondrinker. She reports receiving pneumococcal and influenza vaccines. PAST MEDICAL HISTORY: Positive for hyperlipidemia, hypertension, atrial fibrillation, and chronic anemia. PAST SURGICAL HISTORY: Status post cataract surgery and varicose vein surgery. ALLERGIES: PENICILLIN and IODINE. The patient reports a bad rash with PENICILLIN many years ago in [facility]. MEDICATIONS: Albuterol, Singulair, Cardizem, Eliquis, iron, Lasix, Lopressor, omeprazole, and Paxil. SOCIAL HISTORY: As per HPI SYSTEMS REVIEW: Neurologic: No loss of consciousness, seizure activity or focal weakness. Cardiac: Negative chest pain or palpitations. Respiratory: As per HPI. Gastrointestinal: Positive for vomiting, no diarrhea. Genitourinary: Negative for urinary tract infection. LABORATORY DATA: White count on admission 20,000 with a left shift, presently 7.9, hematocrit 28.4, and platelets 226. BUN 18, creatinine 0.9, lactic acid 2.6. Total bilirubin 0.7, alkaline phosphatase 99, AST 40, and ALT 55. Urinalysis 2 white cells. Chest x-ray shows right lower lobe infiltrate. PHYSICAL EXAMINATION: General: The patient is awake and alert, seated in bed breathing is nonlabored. Temperature is 99.1, Temperature maximum 102.3, blood pressure 112/64, pulse 101 regular, and respirations 18 per minute. HEENT: Sclerae anicteric. Heart: Sounds S1, S2. Lungs: Rales in bases bilaterally, right greater than left. Abdomen: Soft, no tenderness elicited. No mass, rebound, or rigidity. Extremities: Positive for edema. There is an ulceration present on the lateral malleolus of the left foot. There is serous drainage and surrounding erythema. There is also erythema involving the distal left medial calf extending to the knee. IMPRESSION: 1. Community-acquired versus atypical right lower lobe pneumonia. 2. Possible sepsis secondary to pneumonia. 3. Lactic acidosis. 4. Cellulitis of the left lower extremity. 5. Non healing ulcer of the left lateral malleolus. Await sepsis workup. Empiric antibiotic coverage in this PENICILLIN allergic patient with Levaquin and vancomycin. Vascular evaluation from local wound care. We will follow. Thank you for the kind referral. RADHA DEY M.D. [id number]
--- NOTE | 2017-12-03 16:48 | PN ---
Progress Note, Physician Chief Complaint: AWAKE ALERT FEELING BETTER WITH DYSPNEA HOWEVER, LEFT LEG PAIN WITH ERYTHEMA - Current Medication List Current Medications: Active Medications Acetaminophen (Tylenol -) 650 mg PO Q4H PRN PRN Reason: FEVER Last Admin: 12/02/17 02:21 Dose: 650 mg Albuterol/Ipratropium (Duoneb -) 1 amp NEB Q6H PRN PRN Reason: ASTHMA Last Admin: 12/03/17 08:02 Dose: 1 amp Apixaban (Eliquis -) 5 mg PO BID [facility] Atorvastatin Calcium (Lipitor -) 10 mg PO HS [facility] Collagenase (Santyl -) 1 applic TP DAILY [facility] Last Admin: 12/03/17 10:35 Dose: 1 applic Diltiazem HCl (Cardizem Cd -) 240 mg PO [facility] Last Admin: 12/02/17 21:07 Dose: 240 mg Ferrous Sulfate (Feosol -) 325 mg PO DAILY [facility] Last Admin: 12/03/17 10:35 Dose: 325 mg Furosemide (Lasix Injection -) 40 mg IVPUSH DAILY [facility] Levofloxacin (Levaquin 500 Mg Premixed Ivpb -) 500 mg in 100 mls @ 100 mls/hr IVPB DAILY [facility]; Protocol Last Admin: 12/03/17 10:35 Dose: 100 mls/hr Vancomycin HCl 1,000 mg/ (Dextrose) 250 mls @ 166.667 mls/hr IVPB DAILY@1500 [facility]; Protocol Last Admin: 12/03/17 15:41 Dose: 166.667 mls/hr Metoprolol Tartrate (Lopressor -) 50 mg PO BID [facility] Last Admin: 12/03/17 10:35 Dose: 50 mg Montelukast Sodium (Singulair -) 10 mg PO HS [facility] Last Admin: 12/02/17 21:07 Dose: 10 mg Non-Formulary Medication (Fluticasone/Vilanterol [Breo Ellipta 100-25 Mcg Inh]) 1 each IH HS [facility] Ondansetron HCl (Zofran Injection) 4 mg IVPB Q6H PRN PRN Reason: NAUSEA Last Admin: 12/02/17 02:21 Dose: 4 mg Pantoprazole Sodium (Protonix -) 40 mg PO DAILY [facility] Last Admin: 12/03/17 10:35 Dose: 40 mg Paroxetine HCl (Paxil -) 10 mg PO DAILY [facility] Last Admin: 12/03/17 10:35 Dose: 10 mg - Objective Vital Signs: Vital Signs Temperature 97.6 F 12/03/17 14:00 Pulse Rate 87 12/03/17 14:00 Respiratory Rate 18 12/03/17 14:00 Blood Pressure 104/74 12/03/17 14:00 O2 Sat by Pulse Oximetry (%) 95 12/03/17 09:00 Constitutional: Yes: Mild Distress Eyes: Yes: WNL HENT: Yes: WNL Neck: Yes: WNL Cardiovascular: Yes: Pulse Irregular Respiratory: Yes: Cough, On Nasal O2, Rales, Wheezes Gastrointestinal: Yes: WNL Genitourinary: Yes: WNL Musculoskeletal: Yes: Muscle Pain Extremities: Yes: Erythema Edema: Yes Edema: LLE: 2+ Peripheral Pulses WNL: Yes Integumentary: Yes: Erythema Wound/Incision: Yes: Dressing Dry and Intact Neurological: Yes: Pre-Existing Deficit ...Motor Strength: LLE Psychiatric: Yes: WNL Labs: CBC, BMP 12/03/17 06:45 12/03/17 06:45 INR, PTT INR 1.28 (0.82-1.09) H 12/01/17 18:56 Problem List - Problems (1) Pneumonia Code(s): J18.9 - PNEUMONIA, UNSPECIFIED ORGANISM Qualifiers: Pneumonia type: due to unspecified organism Laterality: unspecified laterality Lung location: unspecified part of lung Qualified Code(s): J18.9 - Pneumonia, unspecified organism (2) Sepsis Code(s): A41.9 - SEPSIS, UNSPECIFIED ORGANISM Qualifiers: Sepsis type: sepsis due to unspecified organism Qualified Code(s): A41.9 - Sepsis, unspecified organism (3) Acute kidney injury Code(s): N17.9 - ACUTE KIDNEY FAILURE, UNSPECIFIED (4) Anemia Code(s): D64.9 - ANEMIA, UNSPECIFIED Qualifiers: Anemia type: iron deficiency (5) Aortic stenosis Code(s): I35.0 - NONRHEUMATIC AORTIC (VALVE) STENOSIS Qualifiers: Cardiac valve disease etiology: nonrheumatic Qualified Code(s): I35.0 - Nonrheumatic aortic (valve) stenosis (6) CHF (congestive heart failure) Code(s): I50.9 - HEART FAILURE, UNSPECIFIED Qualifiers: Heart failure type: diastolic Heart failure chronicity: acute on chronic Qualified Code(s): I50.33 - Acute on chronic diastolic (congestive) heart failure (7) Dyspnea Code(s): R06.00 - DYSPNEA, UNSPECIFIED Qualifiers: Dyspnea type: dyspnea on exertion Qualified Code(s): R06.09 - Other forms of dyspnea (8) Leg ulcer Code(s): L97.909 - NON-PRS CHRONIC ULC UNSP PRT OF UNSP LOW LEG W UNSP SEVERITY (9) PAF (paroxysmal atrial fibrillation) Code(s): I48.0 - PAROXYSMAL ATRIAL FIBRILLATION Assessment/Plan LEFT LEG ERYTHEMA PHLEBITIS? VS DVT? DUPLEX DOPPLER STAT ON ELIQUIS IF PHLEBITS WILL TREAT SUPPORTIVELY WITH A WARM COMPRESS PNA IMPROVING WBC AND NO FEVERS BREATHING BETTER WITH NEBS/STEROIDS/02 SUPPORT CHF NEEDS DAILY WEIGHTS CARDIOLOGY F/U LASIX IV ECHO NO ACUTE CHANGES EF% NORMAL
[2017-12-03] MEDS ORDERED: PT OWN MED DRAWER 7, Y5N ONE (21:23)
[2017-12-03] MEDS: ATORVASTATIN CA 10 MG TABLET (FP) PO SCH (21:33)
[2017-12-03] MEDS: MONTELUKAST NA 10 MG TABLET PO SCH (21:33)
[2017-12-03] MEDS: APIXABAN 5 MG TABLET PO SCH (21:33)
[2017-12-04] MEDS: ALBUTEROL SO4 2.5/IPRATROPIUM 0.5 INH SOL 3 ML VIAL.NEB. NEB PRN ×2 (00:12→07:40)
--- NOTE | 2017-12-04 09:57 | CONSULT ---
- Consultation REQUESTING PROVIDER: CONSULT REQUEST: We have been asked to surgically evaluate this patient for left leg ulcer. PCP:Kyler Watts HISTORY OF PRESENT ILLNESS: The patient is a 82 yo female who presented to the ER for CP, SOB. She was admitted with pneumonia and is being treated with IV abx. She currently sees Dr. Izaguirre in the wound clinic for a chronic LLE ulcer. She states that it varies in size and has been a chromic issue over the past two years. The swelling in her lower extremities has been an issues in the past with her ulcers healing. She applies Santyl daily and wears compression stockings. She was last seen in the wound clinic on 11/16/2017 for her LLE ulcers. The patient had an oupt navix study done on 11/27 and was to follow up in the clinic yesterday. PMHx: HTN, hyperlipidemia, anemia, asthma, afib PSHx: varicose vein stripping. Home Medications Medication Instructions Recorded Albuterol 2.5/Ipratropium 0.5 1 amp NEB RQID #120 amp 09/11/17 [Duoneb -] Albuterol Sulfate 0.042% [Ventolin 1 amp NEB Q4H PRN #1 amp 09/11/17 0.042% (Half-Strength) -] Montelukast Sodium [Singulair] 10 mg PO DAILY #30 tablet 09/11/17 Diltiazem [Cardizem -] 240 mg PO HS 11/16/17 Apixaban [Eliquis] 2.5 mg PO DAILY 12/01/17 Ferrous Sulfate 324 mg PO DAILY 12/01/17 Fluticasone/Vilanterol [Breo 1 each IH DAILY PRN 12/01/17 Ellipta 100-25 Mcg INH] Furosemide [Lasix] 80 mg PO DAILY 12/01/17 Metoprolol Tartrate [Lopressor -] 50 mg PO BID 12/01/17 Omeprazole 40 mg PO DAILY 12/01/17 Paroxetine HCl 10 mg PO DAILY 12/01/17 Allergies Allergy/AdvReac Type Severity Reaction Status Date / Time Iodine and Iodide Containing Allergy Intermediate Difficulty Verified 12/01/17 17:41 Produc Breathing shrimp Allergy Intermediate Difficulty Verified 12/01/17 17:41 Breathing Penicillins Allergy Verified 12/01/17 17:41 kiwi AdvReac Intermediate Hives Verified 12/01/17 17:41 REVIEW OF SYSTEMS: CONSTITUTIONAL: Absent: fever, chills CARDIOVASCULAR: Present: chest pain on admission RESPIRATORY: Present: cough, shortness of breath on admission PHYSICAL EXAM: GENERAL: Awake, alert, and fully oriented, in no acute distress. ABDOMEN: Soft, nontender, not distended, normoactive bowel sounds, no guarding, no rebound, no masses. MUSCULOSKELETAL: Normal ROM at all joints. No bony deformities or tenderness. LOWER EXTREMITIES: warm, well-perfused b/l. Positive LLE swelling > right lower extremity with some mild erythema to the LLE. b/l varicosities to feet. Left lateral ankle ulcer 1x2 cm ulcer seperated by skin bridge and 1x1 cm ulcer. Granulation tissue at base, no necrotic tissue. Vital Signs Temperature 98.1 F 12/04/17 06:00 Pulse Rate 102 H 12/04/17 06:00 Respiratory Rate 18 12/04/17 06:00 Blood Pressure 145/87 12/04/17 06:00 O2 Sat by Pulse Oximetry (%) 95 12/03/17 21:00 Lab Results WBC 7.9 K/mm3 (4.0-10.0) D 12/03/17 06:45 RBC 3.41 M/mm3 (3.60-5.2) L 12/03/17 06:45 Hgb 9.5 GM/dL (10.7-15.3) L 12/03/17 06:45 Hct 28.4 % (32.4-45.2) L 12/03/17 06:45 MCV 83.3 fl (80-96) 12/03/17 06:45 MCHC 33.4 g/dl (32.0-36.0) 12/03/17 06:45 RDW 15.7 % (11.6-15.6) H 12/03/17 06:45 Plt Count 226 K/MM3 (134-434) 12/03/17 06:45 Sodium 139 mmol/L (136-145) 12/03/17 06:45 Potassium 3.5 mmol/L (3.5-5.1) 12/03/17 06:45 Chloride 98 mmol/L (98-107) 12/03/17 06:45 Carbon Dioxide 32 mmol/L (21-32) 12/03/17 06:45 Anion Gap 9 (8-16) 12/03/17 06:45 BUN 18 mg/dL (7-18) 12/03/17 06:45 Creatinine 0.9 mg/dL (0.55-1.02) 12/03/17 06:45 Random Glucose 108 mg/dL (74-106) H 12/03/17 06:45 Calcium 8.4 mg/dL (8.5-10.1) L 12/03/17 06:45 INR 1.28 (0.82-1.09) H 12/01/17 18:56 US of LLE 12/03 : no evidence of DVT to LE CXR 12/01: right lung base pneumonia Problem List - Problems (1) Leg ulcer Assessment/Plan: D/w Dr. Izaguirre and will continue with current wound care that is being done as an outpt. Santyl daily with compression stockings. Duplex study completed and there if no evidence of a DVT IV abx for her pneumonia. There is some mild erythema to the LLE but most likely related to increased swelling in the extremity and chronic wound to this extremity. Elevate b/l lower ext at all times when resting. Pt to follow up in the wound clinic as an outpt upon discharge. No acute surgical intervention at this time needed, continue local wound care. Code(s): L97.909 - NON-PRS CHRONIC ULC UNSP PRT OF UNSP LOW LEG W UNSP SEVERITY Qualifiers: Laterality: left Non-pressure ulcer stage: limited to breakdown of skin Qualified Code(s): L97.921 - Non-pressure chronic ulcer of unspecified part of left lower leg limited to breakdown of skin
[2017-12-04] MEDS: METOPROLOL TARTRATE 50 MG TABLET (FP) PO SCH ×2 (10:18→20:59)
[2017-12-04] MEDS: PARoxetine HCL 10 MG TABLET (FP) PO SCH (10:18)
[2017-12-04] MEDS: PANTOPRAZOLE 40 MG TABLET (FP) PO SCH (10:18)
[2017-12-04] MEDS: FERROUS SO4 325 MG TABLET (FP) PO SCH (10:18)
[2017-12-04] MEDS: APIXABAN 5 MG TABLET PO SCH ×2 (10:18→20:59)
[2017-12-04] MEDS: FUROSEMIDE 40 MG/4 ML INJECTABLE VIAL IVPUSH SCH (10:19)
[2017-12-04] MEDS: COLLAGENASE CLOSTRIDIUM HIST. 30 GRAMS TUBE TP SCH (10:33)
--- NOTE | 2017-12-04 11:05 | PN ---
Progress Note, Physician Chief Complaint: Events noted Intermittent shortness of breath with exertion Coverage for Dr. Palma/Jacobo History of Present Illness: Patient was seen and examined. Awake and alert. Chart was reviewed Denies chest pain, but complains of dyspnea and palpitation after ambulation LLE ulcer. Surgical service input noted - Current Medication List Current Medications: Active Medications Acetaminophen (Tylenol -) 650 mg PO Q4H PRN PRN Reason: FEVER Last Admin: 12/02/17 02:21 Dose: 650 mg Albuterol/Ipratropium (Duoneb -) 1 amp NEB Q6H PRN PRN Reason: ASTHMA Last Admin: 12/04/17 07:40 Dose: 1 amp Apixaban (Eliquis -) 5 mg PO BID [facility] Last Admin: 12/04/17 10:18 Dose: 5 mg Atorvastatin Calcium (Lipitor -) 10 mg PO HS [facility] Last Admin: 12/03/17 21:33 Dose: 10 mg Collagenase (Santyl -) 1 applic TP DAILY [facility] Last Admin: 12/04/17 10:33 Dose: 1 applic Diltiazem HCl (Cardizem Cd -) 240 mg PO [facility] Last Admin: 12/03/17 21:34 Dose: 240 mg Ferrous Sulfate (Feosol -) 325 mg PO DAILY [facility] Last Admin: 12/04/17 10:18 Dose: 325 mg Furosemide (Lasix Injection -) 40 mg IVPUSH DAILY [facility] Last Admin: 12/04/17 10:19 Dose: 40 mg Levofloxacin (Levaquin 500 Mg Premixed Ivpb -) 500 mg in 100 mls @ 100 mls/hr IVPB DAILY [facility]; Protocol Last Admin: 12/04/17 10:32 Dose: 100 mls/hr Vancomycin HCl 1,000 mg/ (Dextrose) 250 mls @ 166.667 mls/hr IVPB DAILY@1500 [facility]; Protocol Last Admin: 12/03/17 15:41 Dose: 166.667 mls/hr Metoprolol Tartrate (Lopressor -) 50 mg PO BID [facility] Last Admin: 12/04/17 10:18 Dose: 50 mg Montelukast Sodium (Singulair -) 10 mg PO HS [facility] Last Admin: 12/03/17 21:33 Dose: 10 mg Non-Formulary Medication (Fluticasone/Vilanterol [Breo Ellipta 100-25 Mcg Inh]) 1 each IH HS [facility] Ondansetron HCl (Zofran Injection) 4 mg IVPB Q6H PRN PRN Reason: NAUSEA Last Admin: 12/02/17 02:21 Dose: 4 mg Pantoprazole Sodium (Protonix -) 40 mg PO DAILY [facility] Last Admin: 12/04/17 10:18 Dose: 40 mg Paroxetine HCl (Paxil -) 10 mg PO DAILY [facility] Last Admin: 12/04/17 10:18 Dose: 10 mg - Objective Vital Signs: Vital Signs Temperature 98.1 F 12/04/17 06:00 Pulse Rate 102 H 12/04/17 06:00 Respiratory Rate 18 12/04/17 06:00 Blood Pressure 145/87 12/04/17 06:00 O2 Sat by Pulse Oximetry (%) 95 12/03/17 21:00 HENT: Yes: Atraumatic Neck: Yes: Supple Cardiovascular: Yes: Tachycardia, Pulse Irregular, Murmur (IVAN), S1, S2 Respiratory: Yes: Diminished Gastrointestinal: Yes: Normal Bowel Sounds, Soft. No: Tenderness Extremities: Yes: Erythema Edema: No Wound/Incision: Yes: Dressing Dry and Intact Additional Findings/Remarks: - Review of Systems Constitutional: denies: Chills, Unintentional Wgt. Loss Cardiovascular: denies: Chest Pain, (+) Shortness of Breath. (+) Palpitations Respiratory: reports: Cough, SOB. denies: Hemoptysis, Orthopnea, PND, SOB on Exertion Gastrointestinal: denies: Abdominal Pain, Constipation, Diarrhea, Melena, Nausea , Rectal Bleeding, Vomiting Genitourinary: denies: Dysuria, Hematuria Musculoskeletal: denies: Back Pain, Joint Pain Neurological: denies: Dizziness, Headache, Seizure, Syncope, Weakness Labs: CBC, BMP 12/03/17 06:45 12/03/17 06:45 Problem List - Problems (1) Persistent atrial fibrillation Code(s): I48.1 - PERSISTENT ATRIAL FIBRILLATION (2) Diastolic heart failure Code(s): I50.30 - UNSPECIFIED DIASTOLIC (CONGESTIVE) HEART FAILURE Qualifiers: Heart failure chronicity: acute on chronic Qualified Code(s): I50.33 - Acute on chronic diastolic (congestive) heart failure (3) Hyperlipidemia Code(s): E78.5 - HYPERLIPIDEMIA, UNSPECIFIED Qualifiers: Hyperlipidemia type: pure hypercholesterolemia Qualified Code(s): E78.00 - Pure hypercholesterolemia, unspecified; E78.0 - Pure hypercholesterolemia (4) Hypertensive cardiopathy Code(s): I11.9 - HYPERTENSIVE HEART DISEASE WITHOUT HEART FAILURE Qualifiers: Heart failure presence: with heart failure (5) Pneumonia Code(s): J18.9 - PNEUMONIA, UNSPECIFIED ORGANISM Qualifiers: Pneumonia type: due to unspecified organism Laterality: unspecified laterality Lung location: unspecified part of lung Qualified Code(s): J18.9 - Pneumonia, unspecified organism (6) Sepsis Code(s): A41.9 - SEPSIS, UNSPECIFIED ORGANISM Qualifiers: Sepsis type: sepsis due to unspecified organism Qualified Code(s): A41.9 - Sepsis, unspecified organism (7) Acute kidney injury Code(s): N17.9 - ACUTE KIDNEY FAILURE, UNSPECIFIED (8) Anemia Code(s): D64.9 - ANEMIA, UNSPECIFIED Qualifiers: Anemia type: iron deficiency (9) Aortic stenosis Code(s): I35.0 - NONRHEUMATIC AORTIC (VALVE) STENOSIS Qualifiers: Cardiac valve disease etiology: nonrheumatic Qualified Code(s): I35.0 - Nonrheumatic aortic (valve) stenosis (10) Elevated liver enzymes Code(s): R74.8 - ABNORMAL LEVELS OF OTHER SERUM ENZYMES Assessment/Plan 1. RLL pneumonia with leukocytosis - improving 2. Moderate aortic valve stenosis 3. Chronic diastolic heart failure 4. Persistent atrial fibrillation with periods or RVR on NOAC 5. Mild esophagitis 6. LLE ulcer PLAN: 1. Bronchodilator, O2 and empiric antibiotic coverage 2. Continue Lopressor 50 bid, Cardizem 240 qhs and Eliquis 5 bid (wt>60 Kg, Cr< 1.5,age>80). Continue Lipitor 10 qhs as tolerated 3. Continue diuretics (currently IV) as tolerated. Monitor renal function and electrolytes 4. Surgical input noted. Continue wound care Dr. Palma/Jacobo to resume care tomorrow Lam Martin MD
--- NOTE | 2017-12-04 12:34 | PN ---
Progress Note (short form) - Note Progress Note: PULMONARY States breathing is improving. Still some chest tightness. CT chest done showing small bilateral effusions and fluid in fissure as well as mild left basilar atelectatic changes, official read pending. Vital Signs Period Temp Pulse Resp BP Sys/Roman Pulse Ox Last 24 Hr 97.6 F-98.3 F 87-114 17-18 104-152/69-93 95 Intake & Output 12/01/17 12/02/17 12/03/17 12/04/17 23:59 23:59 23:59 23:59 Intake Total 250 640 50 Output Total 300 Balance -50 640 50 Weight 77.111 kg 79.016 kg 80.195 kg Gen: NAD at rest Heart: RRR Lung: scattered wheezes Abd: soft, nontender Ext: no edema CBC, BMP 12/03/17 06:45 12/03/17 06:45 Active Medications Acetaminophen (Tylenol -) 650 mg PO Q4H PRN PRN Reason: FEVER Last Admin: 12/02/17 02:21 Dose: 650 mg Albuterol/Ipratropium (Duoneb -) 1 amp NEB Q6H PRN PRN Reason: ASTHMA Last Admin: 12/04/17 07:40 Dose: 1 amp Apixaban (Eliquis -) 5 mg PO BID [facility] Last Admin: 12/04/17 10:18 Dose: 5 mg Atorvastatin Calcium (Lipitor -) 10 mg PO HS [facility] Last Admin: 12/03/17 21:33 Dose: 10 mg Collagenase (Santyl -) 1 applic TP DAILY [facility] Last Admin: 12/04/17 10:33 Dose: 1 applic Diltiazem HCl (Cardizem Cd -) 240 mg PO HS [facility] Last Admin: 12/03/17 21:34 Dose: 240 mg Ferrous Sulfate (Feosol -) 325 mg PO DAILY [facility] Last Admin: 12/04/17 10:18 Dose: 325 mg Furosemide (Lasix Injection -) 40 mg IVPUSH DAILY [facility] Last Admin: 12/04/17 10:19 Dose: 40 mg Levofloxacin (Levaquin 500 Mg Premixed Ivpb -) 500 mg in 100 mls @ 100 mls/hr IVPB DAILY [facility]; Protocol Last Admin: 12/04/17 10:32 Dose: 100 mls/hr Vancomycin HCl 1,000 mg/ (Dextrose) 250 mls @ 166.667 mls/hr IVPB DAILY@1500 [facility]; Protocol Last Admin: 12/03/17 15:41 Dose: 166.667 mls/hr Metoprolol Tartrate (Lopressor -) 50 mg PO BID [facility] Last Admin: 12/04/17 10:18 Dose: 50 mg Montelukast Sodium (Singulair -) 10 mg PO HS [facility] Last Admin: 12/03/17 21:33 Dose: 10 mg Non-Formulary Medication (Fluticasone/Vilanterol [Breo Ellipta 100-25 Mcg Inh]) 1 each [facility] Ondansetron HCl (Zofran Injection) 4 mg IVPB Q6H PRN PRN Reason: NAUSEA Last Admin: 12/02/17 02:21 Dose: 4 mg Pantoprazole Sodium (Protonix -) 40 mg PO DAILY [facility] Last Admin: 12/04/17 10:18 Dose: 40 mg Paroxetine HCl (Paxil -) 10 mg PO DAILY [facility] Last Admin: 12/04/17 10:18 Dose: 10 mg A/P r/o Pneumonia LV Diastolic Dysfunction Aortic Stenosis Atrial Fibrillation - continue empiric antibiotics - lasix - monitor urine output, creatinine - rate control - continue anticoagulation - inhaled bronchodilators - O2 as needed - DVT prophylaxis
--- NOTE | 2017-12-04 14:36 | PN ---
Progress Note, Physician Chief Complaint: Awake, alert Reports less leg pain No c/o chest pain/ dyspnea/ cough No fever/ chills No adverse rxn to antibiotics Temps down Afebrile WBC improved CT chest shows bilateral pleural effusions loculated fluid collection in fissure No infiltrate - Current Medication List Current Medications: Active Medications Acetaminophen (Tylenol -) 650 mg PO Q4H PRN PRN Reason: FEVER Last Admin: 12/02/17 02:21 Dose: 650 mg Albuterol/Ipratropium (Duoneb -) 1 amp NEB RQID [facility] Apixaban (Eliquis -) 5 mg PO BID [facility] Last Admin: 12/04/17 10:18 Dose: 5 mg Atorvastatin Calcium (Lipitor -) 10 mg PO [facility] Last Admin: 12/03/17 21:33 Dose: 10 mg Collagenase (Santyl -) 1 applic TP DAILY [facility] Last Admin: 12/04/17 10:33 Dose: 1 applic Diltiazem HCl (Cardizem Cd -) 240 mg PO [facility] Last Admin: 12/03/17 21:34 Dose: 240 mg Ferrous Sulfate (Feosol -) 325 mg PO DAILY [facility] Last Admin: 12/04/17 10:18 Dose: 325 mg Furosemide (Lasix Injection -) 40 mg IVPUSH DAILY [facility] Last Admin: 12/04/17 10:19 Dose: 40 mg Levofloxacin (Levaquin 500 Mg Premixed Ivpb -) 500 mg in 100 mls @ 100 mls/hr IVPB DAILY [facility]; Protocol Last Admin: 12/04/17 10:32 Dose: 100 mls/hr Vancomycin HCl 1,000 mg/ (Dextrose) 250 mls @ 166.667 mls/hr IVPB DAILY@1500 [facility]; Protocol Last Admin: 12/03/17 15:41 Dose: 166.667 mls/hr Metoprolol Tartrate (Lopressor -) 50 mg PO BID [facility] Last Admin: 12/04/17 10:18 Dose: 50 mg Montelukast Sodium (Singulair -) 10 mg PO HS [facility] Last Admin: 12/03/17 21:33 Dose: 10 mg Non-Formulary Medication (Fluticasone/Vilanterol [Breo Ellipta 100-25 Mcg Inh]) 1 each IH [facility] Ondansetron HCl (Zofran Injection) 4 mg IVPB Q6H PRN PRN Reason: NAUSEA Last Admin: 12/02/17 02:21 Dose: 4 mg Pantoprazole Sodium (Protonix -) 40 mg PO DAILY [facility] Last Admin: 12/04/17 10:18 Dose: 40 mg Paroxetine HCl (Paxil -) 10 mg PO DAILY [facility] Last Admin: 12/04/17 10:18 Dose: 10 mg - Objective Vital Signs: Vital Signs Temperature 98.6 F 12/04/17 10:00 Pulse Rate 113 H 12/04/17 10:00 Respiratory Rate 17 12/04/17 10:00 Blood Pressure 129/64 12/04/17 10:00 O2 Sat by Pulse Oximetry (%) 100 12/04/17 09:00 Constitutional: Yes: No Distress, Obese Eyes: Yes: Conjunctiva Clear Cardiovascular: Yes: Regular Rate and Rhythm, S1, S2 Respiratory: Yes: Other (few crepitations at bases) Gastrointestinal: Yes: Normal Bowel Sounds, Soft, Abdomen, Obese. No: Tenderness Extremities: Yes: Other (decreased erythema/ tenderness L LE. + L lateral malleolus ulcer) Labs: CBC, BMP 12/03/17 06:45 12/03/17 06:45 INR, PTT INR 1.28 (0.82-1.09) H 12/01/17 18:56 Assessment/Plan Cellulitis L LE Non healing L foot ulcer Loculated fulid collection PCN allergy Continue vancomycin/ levaquin Local wound care
--- NOTE | 2017-12-04 14:58 | PN ---
Progress Note, Physician Chief Complaint: ANXIOUS ECHO NO ACUTE CHANGES FAMILY BEDSIDE - Current Medication List Current Medications: Active Medications Acetaminophen (Tylenol -) 650 mg PO Q4H PRN PRN Reason: FEVER Last Admin: 12/02/17 02:21 Dose: 650 mg Albuterol/Ipratropium (Duoneb -) 1 amp NEB [facility]QID [facility] Apixaban (Eliquis -) 5 mg PO BID [facility] Last Admin: 12/04/17 10:18 Dose: 5 mg Atorvastatin Calcium (Lipitor -) 10 mg PO HS [facility] Last Admin: 12/03/17 21:33 Dose: 10 mg Collagenase (Santyl -) 1 applic TP DAILY [facility] Last Admin: 12/04/17 10:33 Dose: 1 applic Diltiazem HCl (Cardizem Cd -) 240 mg PO [facility] Last Admin: 12/03/17 21:34 Dose: 240 mg Ferrous Sulfate (Feosol -) 325 mg PO DAILY [facility] Last Admin: 12/04/17 10:18 Dose: 325 mg Furosemide (Lasix Injection -) 40 mg IVPUSH DAILY [facility] Last Admin: 12/04/17 10:19 Dose: 40 mg Levofloxacin (Levaquin 500 Mg Premixed Ivpb -) 500 mg in 100 mls @ 100 mls/hr IVPB DAILY [facility]; Protocol Last Admin: 12/04/17 10:32 Dose: 100 mls/hr Vancomycin HCl 1,000 mg/ (Dextrose) 250 mls @ 166.667 mls/hr IVPB DAILY@1500 [facility]; Protocol Last Admin: 12/03/17 15:41 Dose: 166.667 mls/hr Metoprolol Tartrate (Lopressor -) 50 mg PO BID [facility] Last Admin: 12/04/17 10:18 Dose: 50 mg Montelukast Sodium (Singulair -) 10 mg PO HS [facility] Last Admin: 12/03/17 21:33 Dose: 10 mg Non-Formulary Medication (Fluticasone/Vilanterol [Breo Ellipta 100-25 Mcg Inh]) 1 each IH [facility] Ondansetron HCl (Zofran Injection) 4 mg IVPB Q6H PRN PRN Reason: NAUSEA Last Admin: 12/02/17 02:21 Dose: 4 mg Pantoprazole Sodium (Protonix -) 40 mg PO DAILY [facility] Last Admin: 12/04/17 10:18 Dose: 40 mg Paroxetine HCl (Paxil -) 10 mg PO DAILY [facility] Last Admin: 12/04/17 10:18 Dose: 10 mg - Objective Vital Signs: Vital Signs Temperature 98.6 F 12/04/17 10:00 Pulse Rate 113 H 12/04/17 10:00 Respiratory Rate 17 12/04/17 10:00 Blood Pressure 129/64 12/04/17 10:00 O2 Sat by Pulse Oximetry (%) 100 12/04/17 09:00 Constitutional: Yes: Mild Distress Eyes: Yes: WNL, Other HENT: Yes: WNL Neck: Yes: WNL Cardiovascular: Yes: Pulse Irregular Respiratory: Yes: On Nasal O2, Rhonchi, SOB Gastrointestinal: Yes: WNL Genitourinary: Yes: WNL Musculoskeletal: Yes: WNL Extremities: Yes: Other Edema: Yes Edema: LLE: 1+, RLE: 1+ Peripheral Pulses WNL: Yes Integumentary: Yes: Pressure Ulcer (STAGE 3LOWER LEFT EXTREMITY) Neurological: Yes: WNL ...Motor Strength: LLE, RLE Psychiatric: Yes: Other (ANXIOUS) Labs: CBC, BMP 12/03/17 06:45 12/03/17 06:45 INR, PTT INR 1.28 (0.82-1.09) H 12/01/17 18:56 Problem List - Problems (1) Pneumonia Code(s): J18.9 - PNEUMONIA, UNSPECIFIED ORGANISM Qualifiers: Pneumonia type: due to unspecified organism Laterality: unspecified laterality Lung location: unspecified part of lung Qualified Code(s): J18.9 - Pneumonia, unspecified organism (2) Sepsis Code(s): A41.9 - SEPSIS, UNSPECIFIED ORGANISM Qualifiers: Sepsis type: sepsis due to unspecified organism Qualified Code(s): A41.9 - Sepsis, unspecified organism (3) Acute kidney injury Code(s): N17.9 - ACUTE KIDNEY FAILURE, UNSPECIFIED (4) Anemia Code(s): D64.9 - ANEMIA, UNSPECIFIED Qualifiers: Anemia type: iron deficiency (5) Aortic stenosis Code(s): I35.0 - NONRHEUMATIC AORTIC (VALVE) STENOSIS Qualifiers: Cardiac valve disease etiology: nonrheumatic Qualified Code(s): I35.0 - Nonrheumatic aortic (valve) stenosis (6) CHF (congestive heart failure) Code(s): I50.9 - HEART FAILURE, UNSPECIFIED Qualifiers: Heart failure type: diastolic Heart failure chronicity: acute on chronic Qualified Code(s): I50.33 - Acute on chronic diastolic (congestive) heart failure (7) Dyspnea Code(s): R06.00 - DYSPNEA, UNSPECIFIED Qualifiers: Dyspnea type: dyspnea on exertion Qualified Code(s): R06.09 - Other forms of dyspnea (8) Leg ulcer Code(s): L97.909 - NON-PRS CHRONIC ULC UNSP PRT OF UNSP LOW LEG W UNSP SEVERITY Qualifiers: Laterality: left Non-pressure ulcer stage: limited to breakdown of skin Qualified Code(s): L97.921 - Non-pressure chronic ulcer of unspecified part of left lower leg limited to breakdown of skin (9) PAF (paroxysmal atrial fibrillation) Code(s): I48.0 - PAROXYSMAL ATRIAL FIBRILLATION (10) Anxiety Code(s): F41.9 - ANXIETY DISORDER, UNSPECIFIED Assessment/Plan ON ELIQUIS FOR AFIB ULCER LEFT LEG WRAPPED DRESSING CHANGE PER VASC SX WOUND CARE ANXIETY STARTING ZOLFT 25MG DAILY MAY NEED TRAZADONE HS PSYCHIATRY EVAL PT EVAL
[2017-12-04] MEDS: VANCOMYCIN 1,000 MG in DEXTROSE 5%-WATER - 250 ML IVPB SCH (15:47)
[2017-12-04] MEDS: ALBUTEROL SO4 2.5/IPRATROPIUM 0.5 INH SOL 3 ML VIAL.NEB. NEB SCH ×2 (16:18→20:40)
[2017-12-04] MEDS: MONTELUKAST NA 10 MG TABLET PO SCH (20:59)
[2017-12-04] MEDS: ATORVASTATIN CA 10 MG TABLET (FP) PO SCH (20:59)
[2017-12-04] MEDS: ACETAMINOPHEN 325 MG TABLET (FP) PO PRN (23:22)
[2017-12-05] MEDS: ALBUTEROL SO4 0.083% IH SOL 2.5 MG/3 ML VIAL.NEB. NEB PRN (03:14)
[2017-12-05] MEDS: ACETAMINOPHEN 325 MG TABLET (FP) PO PRN (03:21)
[2017-12-05 06:35] LABS: HEMATOCRIT 30.7 % (32.4-45.2); HEMOGLOBIN 10.2 GM/dL (10.7-15.3); MCH 27.7 pg (25.7-33.7); MCHC 33.1 g/dl (32.0-36.0); MEAN CELL VOLUME 83.7 fl (80-96); MEAN PLT VOLUME 7.4 fl (7.5-11.1); PLATELET COUNT 259 K/MM3 (134-434); RBC 3.67 M/mm3 (3.60-5.2); RDW 15.6 % (11.6-15.6); WHITE BLOOD COUNT 7.9 K/mm3 (4.0-10.0)
[2017-12-05 06:56] LABS: ANION GAP 6 (8-16); BLOOD UREA NITROGEN 19 mg/dL (7-18); CALCIUM 8.8 mg/dL (8.5-10.1); CHLORIDE 98 mmol/L (98-107); CO2 34 mmol/L (21-32); CREATININE 0.9 mg/dL (0.55-1.02); GLUCOSE,RANDOM 108 mg/dL (74-106); MAGNESIUM 1.9 mg/dL (1.8-2.4); SODIUM 138 mmol/L (136-145)
[2017-12-05] MEDS: ALBUTEROL SO4 2.5/IPRATROPIUM 0.5 INH SOL 3 ML VIAL.NEB. NEB SCH ×4 (08:32→20:49)
[2017-12-05] MEDS: PARoxetine HCL 10 MG TABLET (FP) PO SCH (09:28)
[2017-12-05] MEDS: FUROSEMIDE 40 MG/4 ML INJECTABLE VIAL IVPUSH SCH (09:28)
[2017-12-05] MEDS: APIXABAN 5 MG TABLET PO SCH ×2 (09:28→22:09)
[2017-12-05] MEDS: METOPROLOL TARTRATE 50 MG TABLET (FP) PO SCH ×2 (09:28→22:09)
[2017-12-05] MEDS: FERROUS SO4 325 MG TABLET (FP) PO SCH (09:28)
[2017-12-05] MEDS: PANTOPRAZOLE 40 MG TABLET (FP) PO SCH (09:29)
[2017-12-05] MEDS: COLLAGENASE CLOSTRIDIUM HIST. 30 GRAMS TUBE TP SCH (09:29)
--- NOTE | 2017-12-05 10:04 | PN ---
Progress Note, Physician Chief Complaint: AWAKE ALERT C/O DYSPNEA ON EXERTION NO FEVERS - Current Medication List Current Medications: Active Medications Acetaminophen (Tylenol -) 650 mg PO Q4H PRN PRN Reason: FEVER Last Admin: 12/05/17 03:21 Dose: 650 mg Albuterol Sulfate (Ventolin 0.083% Nebulizer Soln -) 1 amp NEB Q4H PRN PRN Reason: SHORT OF BREATH/WHEEZING Last Admin: 12/05/17 03:14 Dose: 1 amp Albuterol/Ipratropium (Duoneb -) 1 amp NEB RQID [facility] Last Admin: 12/05/17 08:32 Dose: 1 amp Apixaban (Eliquis -) 5 mg PO BID [facility] Last Admin: 12/05/17 09:28 Dose: 5 mg Atorvastatin Calcium (Lipitor -) 10 mg PO HS [facility] Last Admin: 12/04/17 20:59 Dose: 10 mg Collagenase (Santyl -) 1 applic TP DAILY [facility] Last Admin: 12/05/17 09:29 Dose: 1 applic Diltiazem HCl (Cardizem Cd -) 240 mg PO [facility] Last Admin: 12/04/17 20:59 Dose: 240 mg Ferrous Sulfate (Feosol -) 325 mg PO DAILY [facility] Last Admin: 12/05/17 09:28 Dose: 325 mg Furosemide (Lasix Injection -) 40 mg IVPUSH DAILY [facility] Last Admin: 12/05/17 09:28 Dose: 40 mg Levofloxacin (Levaquin 500 Mg Premixed Ivpb -) 500 mg in 100 mls @ 100 mls/hr IVPB DAILY [facility]; Protocol Last Admin: 12/05/17 09:28 Dose: 100 mls/hr Vancomycin HCl 1,000 mg/ (Dextrose) 250 mls @ 166.667 mls/hr IVPB DAILY@1500 [facility]; Protocol Last Admin: 12/04/17 15:47 Dose: 166.667 mls/hr Metoprolol Tartrate (Lopressor -) 50 mg PO BID [facility] Last Admin: 12/05/17 09:28 Dose: 50 mg Montelukast Sodium (Singulair -) 10 mg PO [facility] Last Admin: 12/04/17 20:59 Dose: 10 mg Non-Formulary Medication (Fluticasone/Vilanterol [Breo Ellipta 100-25 Mcg Inh]) 1 each IH [facility] Ondansetron HCl (Zofran Injection) 4 mg IVPB Q6H PRN PRN Reason: NAUSEA Last Admin: 12/02/17 02:21 Dose: 4 mg Pantoprazole Sodium (Protonix -) 40 mg PO DAILY [facility] Last Admin: 12/05/17 09:29 Dose: 40 mg Paroxetine HCl (Paxil -) 10 mg PO DAILY [facility] Last Admin: 12/05/17 09:28 Dose: 10 mg - Objective Vital Signs: Vital Signs Temperature 98 F 12/05/17 01:00 Pulse Rate 95 H 12/05/17 03:00 Respiratory Rate 20 12/05/17 03:00 Blood Pressure 138/54 12/05/17 03:00 O2 Sat by Pulse Oximetry (%) 96 12/04/17 21:00 Constitutional: Yes: Mild Distress Eyes: Yes: WNL HENT: Yes: WNL Neck: Yes: WNL Cardiovascular: Yes: Pulse Irregular Respiratory: Yes: Diminished, On Nasal O2 Gastrointestinal: Yes: WNL Genitourinary: Yes: WNL Musculoskeletal: Yes: Joint Swelling, Muscle Pain, Muscle Weakness Extremities: Yes: Erythema Edema: Yes Edema: LLE: 1+, RLE: 1+ Peripheral Pulses WNL: Yes Integumentary: Yes: Erythema (LEFT LEG STAGE ULCER LEFT CALF AREA RED/ERYTHEMA AND TENDER), Pressure Ulcer Neurological: Yes: Other ...Motor Strength: LLE Psychiatric: Yes: Other Labs: CBC, BMP 12/05/17 05:30 12/05/17 05:30 INR, PTT INR 1.28 (0.82-1.09) H 12/01/17 18:56 Problem List - Problems (1) Pneumonia Code(s): J18.9 - PNEUMONIA, UNSPECIFIED ORGANISM Qualifiers: Pneumonia type: due to unspecified organism Laterality: unspecified laterality Lung location: unspecified part of lung Qualified Code(s): J18.9 - Pneumonia, unspecified organism (2) Sepsis Code(s): A41.9 - SEPSIS, UNSPECIFIED ORGANISM Qualifiers: Sepsis type: sepsis due to unspecified organism Qualified Code(s): A41.9 - Sepsis, unspecified organism (3) Acute kidney injury Code(s): N17.9 - ACUTE KIDNEY FAILURE, UNSPECIFIED (4) Anemia Code(s): D64.9 - ANEMIA, UNSPECIFIED Qualifiers: Anemia type: iron deficiency (5) Aortic stenosis Code(s): I35.0 - NONRHEUMATIC AORTIC (VALVE) STENOSIS Qualifiers: Cardiac valve disease etiology: nonrheumatic Qualified Code(s): I35.0 - Nonrheumatic aortic (valve) stenosis (6) CHF (congestive heart failure) Code(s): I50.9 - HEART FAILURE, UNSPECIFIED Qualifiers: Heart failure type: diastolic Heart failure chronicity: acute on chronic Qualified Code(s): I50.33 - Acute on chronic diastolic (congestive) heart failure (7) Dyspnea Code(s): R06.00 - DYSPNEA, UNSPECIFIED Qualifiers: Dyspnea type: dyspnea on exertion Qualified Code(s): R06.09 - Other forms of dyspnea (8) Leg ulcer Code(s): L97.909 - NON-PRS CHRONIC ULC UNSP PRT OF UNSP LOW LEG W UNSP SEVERITY Qualifiers: Laterality: left Non-pressure ulcer stage: limited to breakdown of skin Qualified Code(s): L97.921 - Non-pressure chronic ulcer of unspecified part of left lower leg limited to breakdown of skin (9) PAF (paroxysmal atrial fibrillation) Code(s): I48.0 - PAROXYSMAL ATRIAL FIBRILLATION (10) Anxiety Code(s): F41.9 - ANXIETY DISORDER, UNSPECIFIED Assessment/Plan DOPPLER NEGATIVE DVT LEFT LEG THROMBOPHLEBITIS WARM PACKS BID VASC SX F/U LEG ULCER PSYCHIATRY EVAL FOR ANXIETY PNEUMONIA F/U PULMONARY ON NEBS/ABX ORDERING INCENTIVE SPIROMETRY OOB TO CHAIR
--- NOTE | 2017-12-05 10:51 | PN ---
Progress Note (short form) - Note Progress Note: S: 82 year old female with history of permanent atrial fibrillation on Xarelto, hypertension, hypertensive cardiovascular disease, recurring CHF, history of cellulitis involving the left calf, hyperlipidemia, history of bronchial asthma , and anemia. Patient was admitted with increasing pedal edema and persistent dyspnea on minimal exertion, unable to walk more than a few feet which has been present since her last discharge. She has several pillow orthopnea, generalized fatigue , and intermittent interior pressure-like chest discomfort at times associated with minimal exertion. Currently is being treated with antibiotics for her left lower extremity cellulitis. Spoke to her daughter who states that even though Furosemide had been increased to 80mg PO at home, she continued to have shortness of breath. She also complained of paroxysmal nocturnal dyspnea, intolerance to cold and recent shivering accompanied by a low grade fever. No history of lightheadedness, dizziness, presyncope, or syncope reported. Daughter states that patient is extremely anxious. Active Medications Acetaminophen (Tylenol -) 650 mg PO Q4H PRN PRN Reason: FEVER Last Admin: 12/05/17 03:21 Dose: 650 mg Albuterol Sulfate (Ventolin 0.083% Nebulizer Soln -) 1 amp NEB Q4H PRN PRN Reason: SHORT OF BREATH/WHEEZING Last Admin: 12/05/17 03:14 Dose: 1 amp Albuterol/Ipratropium (Duoneb -) 1 amp NEB RQID [facility] Last Admin: 12/05/17 08:32 Dose: 1 amp Apixaban (Eliquis -) 5 mg PO BID [facility] Last Admin: 12/05/17 09:28 Dose: 5 mg Atorvastatin Calcium (Lipitor -) 10 mg PO HS [facility] Last Admin: 12/04/17 20:59 Dose: 10 mg Collagenase (Santyl -) 1 applic TP DAILY [facility] Last Admin: 12/05/17 09:29 Dose: 1 applic Diltiazem HCl (Cardizem Cd -) 240 mg PO [facility] Last Admin: 12/04/17 20:59 Dose: 240 mg Ferrous Sulfate (Feosol -) 325 mg PO DAILY [facility] Last Admin: 12/05/17 09:28 Dose: 325 mg Furosemide (Lasix Injection -) 40 mg IVPUSH DAILY [facility] Last Admin: 12/05/17 09:28 Dose: 40 mg Levofloxacin (Levaquin 500 Mg Premixed Ivpb -) 500 mg in 100 mls @ 100 mls/hr IVPB DAILY [facility]; Protocol Last Admin: 12/05/17 09:28 Dose: 100 mls/hr Vancomycin HCl 1,000 mg/ (Dextrose) 250 mls @ 166.667 mls/hr IVPB DAILY@1500 [facility]; Protocol Last Admin: 12/04/17 15:47 Dose: 166.667 mls/hr Metoprolol Tartrate (Lopressor -) 50 mg PO BID [facility] Last Admin: 12/05/17 09:28 Dose: 50 mg Montelukast Sodium (Singulair -) 10 mg PO HS [facility] Last Admin: 12/04/17 20:59 Dose: 10 mg Non-Formulary Medication (Fluticasone/Vilanterol [Breo Ellipta 100-25 Mcg Inh]) 1 each IH [facility] Ondansetron HCl (Zofran Injection) 4 mg IVPB Q6H PRN PRN Reason: NAUSEA Last Admin: 12/02/17 02:21 Dose: 4 mg Pantoprazole Sodium (Protonix -) 40 mg PO DAILY [facility] Last Admin: 12/05/17 09:29 Dose: 40 mg Paroxetine HCl (Paxil -) 10 mg PO DAILY [facility] Last Admin: 12/05/17 09:28 Dose: 10 mg O: 82 year old female was in no acute distress. No pallor, cyanosis, clubbing, or jaundice. Last Vital Signs Temp Pulse Resp BP Pulse Ox 98 F 95 H 20 138/54 96 12/05/17 01:00 12/05/17 03:00 12/05/17 03:00 12/05/17 03:00 12/04/17 21:00 NECK: Supple, no JVD, negative HJR, carotids were 1+, unable to hear any bruits or radiation of murmur, no thyromegaly appreciated. HEART: PMI was in the 5th intercostal space, no heaves or thrills. Heart sounds were distant, grade I/ IVAN heard on held expiration at the second intercostal space. LUNGS: Crepitations at the right base, scattered expiratory wheezing bilaterally , more pronounced at the left base. ABDOMEN: Soft, nontender, no hepatosplenomegaly appreciated, and no palpable masses were felt. EXTREMITIES: There is hyperemia involving the left calf with induration and there is 2+ pedal edema. The left ankle is bandaged for non-healing ulcers. Bilateral vericosities, left more pronounced than right. 1+ left pretibial edema. Femoral pulses were 2+. DP and PT pulses could not be palpated. CBC, BMP Laboratory Results - last 24 hr 12/05/17 12/05/17 05:30 05:30 WBC 7.9 RBC 3.67 Hgb 10.2 L Hct 30.7 L MCV 83.7 MCH 27.7 MCHC 33.1 RDW 15.6 Plt Count 259 MPV 7.4 L Sodium 138 Potassium 4.0 Chloride 98 Carbon Dioxide 34 H Anion Gap 6 L BUN 19 H Creatinine 0.9 Creat Clearance w eGFR 59.94 Random Glucose 108 H Calcium 8.8 Magnesium 1.9 X-ray chest on 12/01/17 demonstrates the patient continues to have right lower lobe infiltrate and effusion. Impression: 1. Persistent dyspnea since August on very limited exertion associated with several pillow orthopnea related to CHF, suspect low flow low volume critical aortic stenosis (see echo reports August and November. Note aortic valve area was 0.83 cm squared in August, and 0.64 cm squared in November). 2. Cellulitis involving the left lower extremity. 3. Permanent atrial fibrillation with periods rapid ventricular response. 4. History of bronchial asthma with recent exacerbation. 5. LLE ulcer, venous versus arterial. 6. History of cold intolerance, hypothyroidism needs to be excluded. 7. Exogenous obesity. 8. Anemia, etiology needs to be determined. Possibility of Thal. minor needs exclusion. Recommendations: 1. Bronchodilator, O2 and empiric antibiotic coverage. 2. If wheezing was to persist, would suggest reducing the dose of Metoprolol to 25 mg BID and may need to be completely tapered off if wheezing was to persist and diltiazem could be increased further in divided doses. 3. Continue diuretics (currently IV) as tolerated. Monitor renal function and electrolytes. 4. Patient most likely will require early cardiac evaluation for low pressure aortic stenosis. 5. T3/T4/TSH. 6. Consider CT scan of the chest without contrast. Prognosis: Guarded. Time spent: 55 minutes. Documentation prepared by Cristina Natarajan, acting as a medical coding instructor for Yunior Luong MD. Problem List - Problems (1) Diastolic heart failure Code(s): I50.30 - UNSPECIFIED DIASTOLIC (CONGESTIVE) HEART FAILURE Qualifiers: Heart failure chronicity: acute on chronic Qualified Code(s): I50.33 - Acute on chronic diastolic (congestive) heart failure (2) Hyperlipidemia Code(s): E78.5 - HYPERLIPIDEMIA, UNSPECIFIED Qualifiers: Hyperlipidemia type: pure hypercholesterolemia Qualified Code(s): E78.00 - Pure hypercholesterolemia, unspecified; E78.0 - Pure hypercholesterolemia (3) Hypertensive cardiopathy Code(s): I11.9 - HYPERTENSIVE HEART DISEASE WITHOUT HEART FAILURE Qualifiers: Heart failure presence: with heart failure (4) Persistent atrial fibrillation Code(s): I48.1 - PERSISTENT ATRIAL FIBRILLATION (5) Pneumonia Code(s): J18.9 - PNEUMONIA, UNSPECIFIED ORGANISM Qualifiers: Pneumonia type: due to unspecified organism Laterality: unspecified laterality Lung location: unspecified part of lung Qualified Code(s): J18.9 - Pneumonia, unspecified organism (6) Sepsis Code(s): A41.9 - SEPSIS, UNSPECIFIED ORGANISM Qualifiers: Sepsis type: sepsis due to unspecified organism Qualified Code(s): A41.9 - Sepsis, unspecified organism (7) Acute kidney injury Code(s): N17.9 - ACUTE KIDNEY FAILURE, UNSPECIFIED (8) Anemia Code(s): D64.9 - ANEMIA, UNSPECIFIED Qualifiers: Anemia type: iron deficiency (9) Aortic stenosis Code(s): I35.0 - NONRHEUMATIC AORTIC (VALVE) STENOSIS Qualifiers: Cardiac valve disease etiology: nonrheumatic Qualified Code(s): I35.0 - Nonrheumatic aortic (valve) stenosis
--- NOTE | 2017-12-05 11:21 | PN ---
Progress Note, Physician History of Present Illness: pulmonary alert,slowly improving,still congested,+ cough - Current Medication List Current Medications: Active Medications Acetaminophen (Tylenol -) 650 mg PO Q4H PRN PRN Reason: FEVER Last Admin: 12/05/17 03:21 Dose: 650 mg Albuterol Sulfate (Ventolin 0.083% Nebulizer Soln -) 1 amp NEB Q4H PRN PRN Reason: SHORT OF BREATH/WHEEZING Last Admin: 12/05/17 03:14 Dose: 1 amp Albuterol/Ipratropium (Duoneb -) 1 amp NEB RQID [facility] Last Admin: 12/05/17 08:32 Dose: 1 amp Apixaban (Eliquis -) 5 mg PO BID [facility] Last Admin: 12/05/17 09:28 Dose: 5 mg Atorvastatin Calcium (Lipitor -) 10 mg PO HS [facility] Last Admin: 12/04/17 20:59 Dose: 10 mg Collagenase (Santyl -) 1 applic TP DAILY [facility] Last Admin: 12/05/17 09:29 Dose: 1 applic Diltiazem HCl (Cardizem Cd -) [address] [facility] Last Admin: 12/04/17 20:59 Dose: 240 mg Ferrous Sulfate (Feosol -) 325 mg PO DAILY [facility] Last Admin: 12/05/17 09:28 Dose: 325 mg Furosemide (Lasix Injection -) 40 mg IVPUSH DAILY [facility] Last Admin: 12/05/17 09:28 Dose: 40 mg Levofloxacin (Levaquin 500 Mg Premixed Ivpb -) 500 mg in 100 mls @ 100 mls/hr IVPB DAILY [facility]; Protocol Last Admin: 12/05/17 09:28 Dose: 100 mls/hr Vancomycin HCl 1,000 mg/ (Dextrose) 250 mls @ 166.667 mls/hr IVPB DAILY@1500 [facility]; Protocol Last Admin: 12/04/17 15:47 Dose: 166.667 mls/hr Metoprolol Tartrate (Lopressor -) 50 mg PO BID [facility] Last Admin: 12/05/17 09:28 Dose: 50 mg Montelukast Sodium (Singulair -) 10 mg PO HS [facility] Last Admin: 12/04/17 20:59 Dose: 10 mg Non-Formulary Medication (Fluticasone/Vilanterol [Breo Ellipta 100-25 Mcg Inh]) [address] [facility] Ondansetron HCl (Zofran Injection) 4 mg IVPB Q6H PRN PRN Reason: NAUSEA Last Admin: 12/02/17 02:21 Dose: 4 mg Pantoprazole Sodium (Protonix -) 40 mg PO DAILY [facility] Last Admin: 12/05/17 09:29 Dose: 40 mg Paroxetine HCl (Paxil -) 10 mg PO DAILY [facility] Last Admin: 12/05/17 09:28 Dose: 10 mg - Objective Vital Signs: Vital Signs Temperature 98 F 12/05/17 01:00 Pulse Rate 95 H 12/05/17 03:00 Respiratory Rate 20 12/05/17 03:00 Blood Pressure 138/54 12/05/17 03:00 O2 Sat by Pulse Oximetry (%) 96 12/04/17 21:00 Constitutional: Yes: Well Nourished, Calm Eyes: Yes: WNL HENT: Yes: WNL Neck: Yes: WNL Cardiovascular: Yes: Tachycardia, Pulse Irregular, S1, S2 Respiratory: Yes: Rhonchi (SCATTERED SIGRID RHONCHI) Gastrointestinal: Yes: Normal Bowel Sounds, Soft Extremities: Yes: WNL Edema: No Labs: CBC, BMP 12/05/17 05:30 12/05/17 05:30 INR, PTT INR 1.28 (0.82-1.09) H 12/01/17 18:56 - ....Imaging Cat Scan: Report Reviewed, Image Reviewed Problem List - Problems (1) Diastolic heart failure Code(s): I50.30 - UNSPECIFIED DIASTOLIC (CONGESTIVE) HEART FAILURE Qualifiers: Heart failure chronicity: acute on chronic Qualified Code(s): I50.33 - Acute on chronic diastolic (congestive) heart failure (2) Hyperlipidemia Code(s): E78.5 - HYPERLIPIDEMIA, UNSPECIFIED Qualifiers: Hyperlipidemia type: pure hypercholesterolemia Qualified Code(s): E78.00 - Pure hypercholesterolemia, unspecified; E78.0 - Pure hypercholesterolemia (3) Hypertensive cardiopathy Code(s): I11.9 - HYPERTENSIVE HEART DISEASE WITHOUT HEART FAILURE Qualifiers: Heart failure presence: with heart failure (4) Pneumonia Code(s): J18.9 - PNEUMONIA, UNSPECIFIED ORGANISM Qualifiers: Pneumonia type: due to unspecified organism Laterality: unspecified laterality Lung location: unspecified part of lung Qualified Code(s): J18.9 - Pneumonia, unspecified organism (5) Anemia Code(s): D64.9 - ANEMIA, UNSPECIFIED Qualifiers: Anemia type: iron deficiency (6) Aortic stenosis Code(s): I35.0 - NONRHEUMATIC AORTIC (VALVE) STENOSIS Qualifiers: Cardiac valve disease etiology: nonrheumatic Qualified Code(s): I35.0 - Nonrheumatic aortic (valve) stenosis (7) CHF (congestive heart failure) Code(s): I50.9 - HEART FAILURE, UNSPECIFIED Qualifiers: Heart failure type: diastolic Heart failure chronicity: acute on chronic Qualified Code(s): I50.33 - Acute on chronic diastolic (congestive) heart failure (8) Cough with fever Code(s): R05 - COUGH; R50.9 - FEVER, UNSPECIFIED (9) Dyspnea Code(s): R06.00 - DYSPNEA, UNSPECIFIED Qualifiers: Dyspnea type: dyspnea on exertion Qualified Code(s): R06.09 - Other forms of dyspnea (10) PAF (paroxysmal atrial fibrillation) Code(s): I48.0 - PAROXYSMAL ATRIAL FIBRILLATION Assessment/Plan IMP CHF WITH SIGRID EFFUSIONS PNEUMONIA AFIB H/O ASTHMA/BRONCHITIS ANEMIA ELEVATED LACTATE LEVEL HTN HLD PLAN IV ABX INHALED BRONCHODILATORS RATE CONTROL O2 LASIX F/U CHEST X-RAYS TREND LACTATE DR VALDES Problem List - Problems (1) Diastolic heart failure Code(s): I50.30 - UNSPECIFIED DIASTOLIC (CONGESTIVE) HEART FAILURE Qualifiers: Heart failure chronicity: acute on chronic Qualified Code(s): I50.33 - Acute on chronic diastolic (congestive) heart failure (2) Hyperlipidemia Code(s): E78.5 - HYPERLIPIDEMIA, UNSPECIFIED Qualifiers: Hyperlipidemia type: pure hypercholesterolemia Qualified Code(s): E78.00 - Pure hypercholesterolemia, unspecified; E78.0 - Pure hypercholesterolemia (3) Hypertensive cardiopathy Code(s): I11.9 - HYPERTENSIVE HEART DISEASE WITHOUT HEART FAILURE Qualifiers: Heart failure presence: with heart failure (4) Pneumonia Code(s): J18.9 - PNEUMONIA, UNSPECIFIED ORGANISM Qualifiers: Pneumonia type: due to unspecified organism Laterality: unspecified laterality Lung location: unspecified part of lung Qualified Code(s): J18.9 - Pneumonia, unspecified organism (5) Anemia Code(s): D64.9 - ANEMIA, UNSPECIFIED Qualifiers: Anemia type: iron deficiency (6) Aortic stenosis Code(s): I35.0 - NONRHEUMATIC AORTIC (VALVE) STENOSIS Qualifiers: Cardiac valve disease etiology: nonrheumatic Qualified Code(s): I35.0 - Nonrheumatic aortic (valve) stenosis (7) CHF (congestive heart failure) Code(s): I50.9 - HEART FAILURE, UNSPECIFIED Qualifiers: Heart failure type: diastolic Heart failure chronicity: acute on chronic Qualified Code(s): I50.33 - Acute on chronic diastolic (congestive) heart failure (8) Cough with fever Code(s): R05 - COUGH; R50.9 - FEVER, UNSPECIFIED (9) Dyspnea Code(s): R06.00 - DYSPNEA, UNSPECIFIED Qualifiers: Dyspnea type: dyspnea on exertion Qualified Code(s): R06.09 - Other forms of dyspnea (10) PAF (paroxysmal atrial fibrillation) Code(s): I48.0 - PAROXYSMAL ATRIAL FIBRILLATION
--- NOTE | 2017-12-05 13:15 | PN ---
Progress Note, Physician Chief Complaint: Awake, alert C/O leg pain No c/o chest pain/ dyspnea/ cough No fever/ chills No adverse rxn to antibiotics Temps down Afebrile WBC improved WNL - Current Medication List Current Medications: Active Medications Acetaminophen (Tylenol -) 650 mg PO Q4H PRN PRN Reason: FEVER Last Admin: 12/05/17 03:21 Dose: 650 mg Albuterol Sulfate (Ventolin 0.083% Nebulizer Soln -) 1 amp NEB Q4H PRN PRN Reason: SHORT OF BREATH/WHEEZING Last Admin: 12/05/17 03:14 Dose: 1 amp Albuterol/Ipratropium (Duoneb -) 1 amp NEB RQID [facility] Last Admin: 12/05/17 12:04 Dose: 1 amp Apixaban (Eliquis -) 5 mg PO BID [facility] Last Admin: 12/05/17 09:28 Dose: 5 mg Atorvastatin Calcium (Lipitor -) 10 mg PO HS [facility] Last Admin: 12/04/17 20:59 Dose: 10 mg Collagenase (Santyl -) 1 applic TP DAILY [facility] Last Admin: 12/05/17 09:29 Dose: 1 applic Diltiazem HCl (Cardizem Cd -) 360 [address] [facility] Ferrous Sulfate (Feosol -) 325 mg PO DAILY [facility] Last Admin: 12/05/17 09:28 Dose: 325 mg Furosemide (Lasix Injection -) 40 mg IVPUSH DAILY [facility] Last Admin: 12/05/17 09:28 Dose: 40 mg Levofloxacin (Levaquin 500 Mg Premixed Ivpb -) 500 mg in 100 mls @ 100 mls/hr IVPB DAILY [facility]; Protocol Last Admin: 12/05/17 09:28 Dose: 100 mls/hr Vancomycin HCl 1,000 mg/ (Dextrose) 250 mls @ 166.667 mls/hr IVPB DAILY@1500 [facility]; Protocol Last Admin: 12/04/17 15:47 Dose: 166.667 mls/hr Metoprolol Tartrate (Lopressor -) 50 mg PO BID [facility] Last Admin: 12/05/17 09:28 Dose: 50 mg Montelukast Sodium (Singulair -) 10 mg PO HS [facility] Last Admin: 12/04/17 20:59 Dose: 10 mg Non-Formulary Medication (Fluticasone/Vilanterol [Breo Ellipta 100-25 Mcg Inh]) 1 each HS [facility] Ondansetron HCl (Zofran Injection) 4 mg IVPB Q6H PRN PRN Reason: NAUSEA Last Admin: 12/02/17 02:21 Dose: 4 mg Pantoprazole Sodium (Protonix -) 40 mg PO DAILY [facility] Last Admin: 12/05/17 09:29 Dose: 40 mg Paroxetine HCl (Paxil -) 10 mg PO DAILY [facility] Last Admin: 12/05/17 09:28 Dose: 10 mg - Objective Vital Signs: Vital Signs Temperature 98 F 12/05/17 01:00 Pulse Rate 95 H 12/05/17 03:00 Respiratory Rate 20 12/05/17 03:00 Blood Pressure 138/54 12/05/17 03:00 O2 Sat by Pulse Oximetry (%) 96 12/04/17 21:00 Constitutional: Yes: No Distress Eyes: Yes: Conjunctiva Clear Cardiovascular: Yes: Regular Rate and Rhythm, S1, S2 Respiratory: Yes: CTA Bilaterally Gastrointestinal: Yes: Normal Bowel Sounds, Soft. No: Tenderness Extremities: Yes: Other (L calf area remains red. + L lateral malleolus ulcer with serous drainage) Labs: CBC, BMP 12/05/17 05:30 12/05/17 05:30 INR, PTT INR 1.28 (0.82-1.09) H 12/01/17 18:56 Assessment/Plan Cellulitis L LE Non healing L foot ulcer Loculated fluid collection PCN allergy Continue vancomycin/ levaquin Local wound care
[2017-12-05] MEDS: VANCOMYCIN 1,000 MG in DEXTROSE 5%-WATER - 250 ML IVPB SCH (15:36)
[2017-12-05] MEDS: ATORVASTATIN CA 10 MG TABLET (FP) PO SCH (22:09)
[2017-12-05] MEDS: MONTELUKAST NA 10 MG TABLET PO SCH (22:09)
--- NOTE | 2017-12-05 22:22 | PN ---
Progress Note (short form) - Note Progress Note: VA[facility] Surgery Pt seen and examined. LLE cellulitis. Left lateral ankle ulcer is stable. Clean. pt getting santyl to ulcer. Cont IV antibiotics for cellulitis. Leg elevation. Darrion Izaguirre DO
[2017-12-06] MEDS: ALBUTEROL SO4 0.083% IH SOL 2.5 MG/3 ML VIAL.NEB. NEB PRN (01:33)
[2017-12-06] MEDS: ACETAMINOPHEN 325 MG TABLET (FP) PO PRN (06:28)
[2017-12-06] MEDS: ALBUTEROL SO4 2.5/IPRATROPIUM 0.5 INH SOL 3 ML VIAL.NEB. NEB SCH ×4 (07:44→20:18)
[2017-12-06] MEDS: PANTOPRAZOLE 40 MG TABLET (FP) PO SCH (09:05)
[2017-12-06] MEDS: METOPROLOL TARTRATE 50 MG TABLET (FP) PO SCH (09:05)
[2017-12-06] MEDS: APIXABAN 5 MG TABLET PO SCH ×2 (09:05→22:00)
[2017-12-06] MEDS: FUROSEMIDE 40 MG/4 ML INJECTABLE VIAL IVPUSH SCH (09:05)
[2017-12-06] MEDS: COLLAGENASE CLOSTRIDIUM HIST. 30 GRAMS TUBE TP SCH (09:06)
[2017-12-06] MEDS: FERROUS SO4 325 MG TABLET (FP) PO SCH (09:06)
[2017-12-06] MEDS: PARoxetine HCL 10 MG TABLET (FP) PO SCH (09:11)
--- NOTE | 2017-12-06 11:01 | PN ---
Progress Note (short form) - Note Progress Note: s: chronic sob persists, no cp palps dizzy o: Vital Signs Period Temp Pulse Resp BP Sys/Roman Pulse Ox Last 24 Hr 97.3 F-98.6 F 106-144 18-20 123-147/64-84 94 nad no jvd irreg s1s2 no mrg cta bl nl eff aao3 no le e/c/c abd nt nd pos bs Current Medications Generic Name Dose Route Start Last Admin Trade Name Freq PRN Reason Stop Dose Admin Acetaminophen 650 mg 12/02/17 01:33 12/06/17 06:28 Tylenol - PO 650 mg Q4H PRN Administration FEVER Albuterol Sulfate 1 amp 12/05/17 03:06 12/06/17 01:33 Ventolin 0.083% Nebulizer Soln - NEB 1 amp Q4H PRN Administration SHORT OF BREATH/WHEEZING Albuterol/Ipratropium 1 amp 12/04/17 16:00 12/06/17 07:44 Duoneb - NEB 1 amp RQID [facility] Administration Apixaban 5 mg 12/03/17 22:00 12/06/17 09:05 Eliquis - PO 5 mg BID [facility] Administration Atorvastatin Calcium 10 mg 12/03/17 22:00 12/05/17 22:09 Lipitor - PO 10 mg HS [facility] Administration Collagenase 1 applic 12/02/17 13:00 12/06/17 09:06 Santyl - TP 1 applic DAILY [facility] Administration Diltiazem HCl 180 mg 12/05/17 22:00 12/06/17 09:05 Cardizem Cd - PO 180 mg BID [facility] Administration Ferrous Sulfate 325 mg 12/02/17 10:00 12/06/17 09:06 Feosol - PO 325 mg DAILY [facility] Administration Furosemide 40 mg 12/04/17 10:00 12/06/17 09:05 Lasix Injection - IVPUSH 40 mg DAILY [facility] Administration Levofloxacin 500 mg in 100 mls @ 100 mls/hr 12/03/17 10:00 12/06/17 09:05 Levaquin 500 Mg Premixed Ivpb - IVPB 100 mls/hr DAILY [facility] Administration Protocol Vancomycin HCl 1,000 mg/ 250 mls @ 166.667 mls/hr 12/03/17 15:00 12/05/17 15: 36 Dextrose IVPB 166.667 mls/hr DAILY@1500 [facility] Administration Protocol Metoprolol Succinate 50 mg 12/06/17 22:00 Toprol Xl - PO BID [facility] Montelukast Sodium 10 mg 12/01/17 22:15 12/05/17 22:09 Singulair - PO 10 mg HS [facility] Administration Non-Formulary Medication 1 each 12/01/17 22:15 Fluticasone/Vilanterol [Breo Ellipta 100-25 Mcg Inh] IH HS [facility] Ondansetron HCl 4 mg 12/02/17 01:34 12/02/17 02:21 Zofran Injection IVPB 4 mg Q6H PRN Administration NAUSEA Pantoprazole Sodium 40 mg 12/02/17 10:00 12/06/17 09:05 Protonix - PO 40 mg DAILY [facility] Administration Paroxetine HCl 10 mg 12/02/17 10:00 12/06/17 09:11 Paxil - PO 10 mg DAILY [facility] Administration Lab Results WBC 7.9 K/mm3 (4.0-10.0) 12/05/17 05:30 RBC 3.67 M/mm3 (3.60-5.2) 12/05/17 05:30 Hgb 10.2 GM/dL (10.7-15.3) L 12/05/17 05:30 Hct 30.7 % (32.4-45.2) L 12/05/17 05:30 MCV 83.7 fl (80-96) 12/05/17 05:30 MCHC 33.1 g/dl (32.0-36.0) 12/05/17 05:30 RDW 15.6 % (11.6-15.6) 12/05/17 05:30 Plt Count 259 K/MM3 (134-434) 12/05/17 05:30 Sodium 138 mmol/L (136-145) 12/05/17 05:30 Potassium 4.0 mmol/L (3.5-5.1) 12/05/17 05:30 Chloride 98 mmol/L (98-107) 12/05/17 05:30 Carbon Dioxide 34 mmol/L (21-32) H 12/05/17 05:30 Anion Gap 6 (8-16) L 12/05/17 05:30 BUN 19 mg/dL (7-18) H 12/05/17 05:30 Creatinine 0.9 mg/dL (0.55-1.02) 12/05/17 05:30 Random Glucose 108 mg/dL (74-106) H 12/05/17 05:30 Calcium 8.8 mg/dL (8.5-10.1) 12/05/17 05:30 INR 1.28 (0.82-1.09) H 12/01/17 18:56 tele: afib, rvr 120s at times echo 11/2017: nl lv/rv, jozef, mod-sev tr, mod as a/p: sob/kirby, acute diast chf: -cont iv lasix -repeat echo shows mod as, unchanged from priors -question if is more severe than echo showing. Once cellulitis resolves would consider cardiac cath with assessment of AV gradients as well. This may be arranged as outpt depending on clinical course here. cellulitis: -on abx per ID afib: -rate fast at times, cont dilt. Will change lopressor to toprol, cont tele. -cont ac hld: -cont statin
--- NOTE | 2017-12-06 11:11 | PN ---
Progress Note, Physician Chief Complaint: patient seen and examined sitting up in bed has episode of sob at night left leg dressing removed and wound examined spoke to daughter on the phone - Current Medication List Current Medications: Active Medications Acetaminophen (Tylenol -) 650 mg PO Q4H PRN PRN Reason: FEVER Last Admin: 12/06/17 06:28 Dose: 650 mg Albuterol Sulfate (Ventolin 0.083% Nebulizer Soln -) 1 amp NEB Q4H PRN PRN Reason: SHORT OF BREATH/WHEEZING Last Admin: 12/06/17 01:33 Dose: 1 amp Albuterol/Ipratropium (Duoneb -) 1 amp NEB RQID [facility] Last Admin: 12/06/17 07:44 Dose: 1 amp Apixaban (Eliquis -) 5 mg PO BID [facility] Last Admin: 12/06/17 09:05 Dose: 5 mg Atorvastatin Calcium (Lipitor -) 10 mg PO HS [facility] Last Admin: 12/05/17 22:09 Dose: 10 mg Collagenase (Santyl -) 1 applic TP DAILY [facility] Last Admin: 12/06/17 09:06 Dose: 1 applic Diltiazem HCl (Cardizem Cd -) 180 mg PO BID [facility] Last Admin: 12/06/17 09:05 Dose: 180 mg Ferrous Sulfate (Feosol -) 325 mg PO DAILY [facility] Last Admin: 12/06/17 09:06 Dose: 325 mg Furosemide (Lasix Injection -) 40 mg IVPUSH DAILY [facility] Last Admin: 12/06/17 09:05 Dose: 40 mg Levofloxacin (Levaquin 500 Mg Premixed Ivpb -) 500 mg in 100 mls @ 100 mls/hr IVPB DAILY [facility]; Protocol Last Admin: 12/06/17 09:05 Dose: 100 mls/hr Vancomycin HCl 1,000 mg/ (Dextrose) 250 mls @ 166.667 mls/hr IVPB DAILY@1500 [facility]; Protocol Last Admin: 12/05/17 15:36 Dose: 166.667 mls/hr Metoprolol Succinate (Toprol Xl -) 50 mg PO BID [facility] Montelukast Sodium (Singulair -) 10 mg PO [facility] Last Admin: 12/05/17 22:09 Dose: 10 mg Non-Formulary Medication (Fluticasone/Vilanterol [Breo Ellipta 100-25 Mcg Inh]) 1 each IH [facility] Ondansetron HCl (Zofran Injection) 4 mg IVPB Q6H PRN PRN Reason: NAUSEA Last Admin: 12/02/17 02:21 Dose: 4 mg Pantoprazole Sodium (Protonix -) 40 mg PO DAILY [facility] Last Admin: 12/06/17 09:05 Dose: 40 mg Paroxetine HCl (Paxil -) 10 mg PO DAILY [facility] Last Admin: 12/06/17 09:11 Dose: 10 mg - Objective Vital Signs: Vital Signs Temperature 97.9 F 12/06/17 06:00 Pulse Rate 115 H 12/06/17 06:00 Respiratory Rate 20 12/06/17 06:00 Blood Pressure 133/84 12/06/17 06:00 O2 Sat by Pulse Oximetry (%) 94 L 12/05/17 21:00 Constitutional: Yes: Calm Cardiovascular: Yes: Pulse Irregular, S1, S2 Respiratory: Yes: CTA Bilaterally, On Nasal O2 Gastrointestinal: Yes: Normal Bowel Sounds, Soft Extremities: Yes: Erythema (of the left leg , left lateral ankle ulcer pink base with slight yellowish discharge) Edema: Yes Neurological: Yes: Alert, Oriented Labs: CBC, BMP 12/05/17 05:30 12/05/17 05:30 INR, PTT INR 1.28 (0.82-1.09) H 12/01/17 18:56 Problem List - Problems (1) Diastolic heart failure Assessment/Plan: acute on chronic iv lasix echo done Code(s): I50.30 - UNSPECIFIED DIASTOLIC (CONGESTIVE) HEART FAILURE Qualifiers: Heart failure chronicity: acute on chronic Qualified Code(s): I50.33 - Acute on chronic diastolic (congestive) heart failure (2) Persistent atrial fibrillation Assessment/Plan: toprol xl and eliquis cardizem Code(s): I48.1 - PERSISTENT ATRIAL FIBRILLATION (3) Dyspnea Assessment/Plan: oxygen- hmidified bronchodilators saline nasal sprays for dry nasal mucose h/o asthma singulair Code(s): R06.00 - DYSPNEA, UNSPECIFIED Qualifiers: Dyspnea type: dyspnea on exertion Qualified Code(s): R06.09 - Other forms of dyspnea (4) Cellulitis Assessment/Plan: tateo and jermaine ID on board PCN allergy wbc count is trending down Code(s): L03.90 - CELLULITIS, UNSPECIFIED Qualifiers: Site of cellulitis of extremity: lower extremity Laterality: left
--- NOTE | 2017-12-06 12:43 | PN ---
Progress Note, Physician Chief Complaint: Awake, alert Reports less leg pain No c/o chest pain/ dyspnea/ cough No fever/ chills No adverse rxn to antibiotics Temps down Afebrile WBC improved WNL - Current Medication List Current Medications: Active Medications Acetaminophen (Tylenol -) 650 mg PO Q4H PRN PRN Reason: FEVER Last Admin: 12/06/17 06:28 Dose: 650 mg Albuterol Sulfate (Ventolin 0.083% Nebulizer Soln -) 1 amp NEB Q4H PRN PRN Reason: SHORT OF BREATH/WHEEZING Last Admin: 12/06/17 01:33 Dose: 1 amp Albuterol/Ipratropium (Duoneb -) 1 amp NEB RQID [facility] Last Admin: 12/06/17 11:33 Dose: 1 amp Apixaban (Eliquis -) 5 mg PO BID [facility] Last Admin: 12/06/17 09:05 Dose: 5 mg Atorvastatin Calcium (Lipitor -) 10 mg PO [facility] Last Admin: 12/05/17 22:09 Dose: 10 mg Collagenase (Santyl -) 1 applic TP DAILY [facility] Last Admin: 12/06/17 09:06 Dose: 1 applic Diltiazem HCl (Cardizem Cd -) 180 mg PO BID [facility] Last Admin: 12/06/17 09:05 Dose: 180 mg Ferrous Sulfate (Feosol -) 325 mg PO DAILY [facility] Last Admin: 12/06/17 09:06 Dose: 325 mg Furosemide (Lasix Injection -) 40 mg IVPUSH DAILY [facility] Last Admin: 12/06/17 09:05 Dose: 40 mg Levofloxacin (Levaquin 500 Mg Premixed Ivpb -) 500 mg in 100 mls @ 100 mls/hr IVPB DAILY [facility]; Protocol Last Admin: 12/06/17 09:05 Dose: 100 mls/hr Vancomycin HCl 1,000 mg/ (Dextrose) 250 mls @ 166.667 mls/hr IVPB DAILY@1500 [facility]; Protocol Last Admin: 12/05/17 15:36 Dose: 166.667 mls/hr Metoprolol Succinate (Toprol Xl -) 50 mg PO BID [facility] Montelukast Sodium (Singulair -) 10 mg PO [facility] Last Admin: 12/05/17 22:09 Dose: 10 mg Non-Formulary Medication (Fluticasone/Vilanterol [Breo Ellipta 100-25 Mcg Inh]) 1 each IH HS [facility] Ondansetron HCl (Zofran Injection) 4 mg IVPB Q6H PRN PRN Reason: NAUSEA Last Admin: 12/02/17 02:21 Dose: 4 mg Pantoprazole Sodium (Protonix -) 40 mg PO DAILY [facility] Last Admin: 12/06/17 09:05 Dose: 40 mg Paroxetine HCl (Paxil -) 10 mg PO DAILY [facility] Last Admin: 12/06/17 09:11 Dose: 10 mg Sodium Chloride ([place] Nasal [place] -) 2 spray NS TID [facility] - Objective Vital Signs: Vital Signs Temperature 97.9 F 12/06/17 06:00 Pulse Rate 115 H 12/06/17 06:00 Respiratory Rate 20 12/06/17 06:00 Blood Pressure 133/84 12/06/17 06:00 O2 Sat by Pulse Oximetry (%) 94 L 12/05/17 21:00 Constitutional: Yes: No Distress Eyes: Yes: Conjunctiva Clear Cardiovascular: Yes: Regular Rate and Rhythm, S1, S2 Respiratory: Yes: CTA Bilaterally Gastrointestinal: Yes: Normal Bowel Sounds, Soft, Abdomen, Obese. No: Tenderness Extremities: Yes: Other (decreased erythema L LE. Ankle ulcer dry. Decreased surrounding erythema) Labs: CBC, BMP 12/05/17 05:30 12/05/17 05:30 INR, PTT INR 1.28 (0.82-1.09) H 12/01/17 18:56 Assessment/Plan Cellulitis L LE improved Non healing L foot ulcer Loculated fluid collection PCN allergy Continue vancomycin/ levaquin vancomycin level noted. Will increase to q12h Anticipate additional 24h IV antibiotics Local wound care
--- NOTE | 2017-12-06 12:55 | PN ---
Progress Note (short form) - Note Progress Note: PULMONARY Episode of shortness of breath overnight with chest tightness. Feels some improvement with nebulizer treatment. Vital Signs Period Temp Pulse Resp BP Sys/Roman Pulse Ox Last 24 Hr 97.3 F-98.6 F 106-144 18-20 123-147/64-84 94-95 Gen: NAD at rest Heart: RRR Lung: scattered wheezes Abd: soft, nontender Ext: no edema CBC, BMP 12/05/17 05:30 12/05/17 05:30 Active Medications Acetaminophen (Tylenol -) 650 mg PO Q4H PRN PRN Reason: FEVER Last Admin: 12/06/17 06:28 Dose: 650 mg Albuterol Sulfate (Ventolin 0.083% Nebulizer Soln -) 1 amp NEB Q4H PRN PRN Reason: SHORT OF BREATH/WHEEZING Last Admin: 12/06/17 01:33 Dose: 1 amp Albuterol/Ipratropium (Duoneb -) 1 amp NEB RQID [facility] Last Admin: 12/06/17 11:33 Dose: 1 amp Apixaban (Eliquis -) 5 mg PO BID [facility] Last Admin: 12/06/17 09:05 Dose: 5 mg Atorvastatin Calcium (Lipitor -) 10 mg PO HS [facility] Last Admin: 12/05/17 22:09 Dose: 10 mg Collagenase (Santyl -) 1 applic TP DAILY [facility] Last Admin: 12/06/17 09:06 Dose: 1 applic Diltiazem HCl (Cardizem Cd -) 180 mg PO BID [facility] Last Admin: 12/06/17 09:05 Dose: 180 mg Ferrous Sulfate (Feosol -) 325 mg PO DAILY [facility] Last Admin: 12/06/17 09:06 Dose: 325 mg Furosemide (Lasix Injection -) 40 mg IVPUSH DAILY [facility] Last Admin: 12/06/17 09:05 Dose: 40 mg Levofloxacin (Levaquin 500 Mg Premixed Ivpb -) 500 mg in 100 mls @ 100 mls/hr IVPB DAILY [facility]; Protocol Last Admin: 12/06/17 09:05 Dose: 100 mls/hr Vancomycin HCl 1,000 mg/ (Dextrose) 250 mls @ 166.667 mls/hr IVPB DAILY@1500 [facility]; Protocol Last Admin: 12/05/17 15:36 Dose: 166.667 mls/hr Metoprolol Succinate (Toprol Xl -) 50 mg PO BID [facility] Montelukast Sodium (Singulair -) 10 mg PO HS [facility] Last Admin: 12/05/17 22:09 Dose: 10 mg Non-Formulary Medication (Fluticasone/Vilanterol [Breo Ellipta 100-25 Mcg Inh]) 1 each IH HS [facility] Ondansetron HCl (Zofran Injection) 4 mg IVPB Q6H PRN PRN Reason: NAUSEA Last Admin: 12/02/17 02:21 Dose: 4 mg Pantoprazole Sodium (Protonix -) 40 mg PO DAILY [facility] Last Admin: 12/06/17 09:05 Dose: 40 mg Paroxetine HCl (Paxil -) 10 mg PO DAILY [facility] Last Admin: 12/06/17 09:11 Dose: 10 mg Sodium Chloride ([place] Nasal [place] -) 2 spray NS TID [facility] A/P r/o Acute Bronchospasm r/o Pneumonia LV Diastolic Dysfunction Aortic Stenosis Atrial Fibrillation - will give trial of medrol - continue empiric antibiotics - lasix - monitor urine output, creatinine - rate control - continue anticoagulation - inhaled bronchodilators - O2 as needed - DVT prophylaxis
[2017-12-06] MEDS: VANCOMYCIN 1,000 MG in DEXTROSE 5%-WATER - 250 ML IVPB SCH (15:49)
[2017-12-06] MEDS: SODIUM CHLORIDE NASAL SPRAY 44 ML BOTTLE NS SCH ×2 (15:50→22:00)
[2017-12-06] MEDS: methylPREDNISolone NA SUCC 40 MG/1 ML VIAL IVPUSH SCH ×2 (15:51→17:59)
[2017-12-06] MEDS: ATORVASTATIN CA 10 MG TABLET (FP) PO SCH (22:00)
[2017-12-06] MEDS: MONTELUKAST NA 10 MG TABLET PO SCH (22:00)
[2017-12-07] MEDS: methylPREDNISolone NA SUCC 40 MG/1 ML VIAL IVPUSH SCH ×2 (01:19→10:19)
[2017-12-07] MEDS: SODIUM CHLORIDE NASAL SPRAY 44 ML BOTTLE NS SCH ×3 (06:41→21:25)
[2017-12-07] MEDS: ALBUTEROL SO4 2.5/IPRATROPIUM 0.5 INH SOL 3 ML VIAL.NEB. NEB SCH ×4 (07:39→20:38)
--- NOTE | 2017-12-07 08:34 | PN ---
Progress Note, Physician Chief Complaint: sob History of Present Illness: remains sob walking in [place]. +bendopnea. says these sx's are present 4-6 mo no cp. legs still swollen L > R no palpit no cigs - Current Medication List Current Medications: Active Medications Acetaminophen (Tylenol -) 650 mg PO Q4H PRN PRN Reason: FEVER Last Admin: 12/06/17 06:28 Dose: 650 mg Albuterol Sulfate (Ventolin 0.083% Nebulizer Soln -) 1 amp NEB Q4H PRN PRN Reason: SHORT OF BREATH/WHEEZING Last Admin: 12/06/17 01:33 Dose: 1 amp Albuterol/Ipratropium (Duoneb -) 1 amp NEB RQID [facility] Last Admin: 12/07/17 07:39 Dose: 1 amp Apixaban (Eliquis -) 5 mg PO BID [facility] Last Admin: 12/06/17 22:00 Dose: 5 mg Atorvastatin Calcium (Lipitor -) 10 mg PO HS [facility] Last Admin: 12/06/17 22:00 Dose: 10 mg Collagenase (Santyl -) 1 applic TP DAILY [facility] Last Admin: 12/06/17 09:06 Dose: 1 applic Diltiazem HCl (Cardizem Cd -) 180 mg PO BID [facility] Last Admin: 12/06/17 22:00 Dose: 180 mg Ferrous Sulfate (Feosol -) 325 mg PO DAILY [facility] Last Admin: 12/06/17 09:06 Dose: 325 mg Furosemide (Lasix Injection -) 40 mg IVPUSH DAILY [facility] Last Admin: 12/06/17 09:05 Dose: 40 mg Levofloxacin (Levaquin 500 Mg Premixed Ivpb -) 500 mg in 100 mls @ 100 mls/hr IVPB DAILY [facility]; Protocol Last Admin: 12/06/17 09:05 Dose: 100 mls/hr Vancomycin HCl 1,000 mg/ (Dextrose) 250 mls @ 166.667 mls/hr IVPB DAILY@1500 [facility]; Protocol Last Admin: 12/06/17 15:49 Dose: 166.667 mls/hr Methylprednisolone Sodium Succinate (Solu-Medrol -) 40 mg IVPUSH Q8H-IV [facility] Stop: 12/08/17 02:01 Last Admin: 12/07/17 01:19 Dose: 40 mg Metoprolol Succinate (Toprol Xl -) 50 mg PO BID [facility] Last Admin: 12/06/17 22:00 Dose: 50 mg Montelukast Sodium (Singulair -) 10 mg PO HS [facility] Last Admin: 12/06/17 22:00 Dose: 10 mg Ondansetron HCl (Zofran Injection) 4 mg IVPB Q6H PRN PRN Reason: NAUSEA Last Admin: 12/02/17 02:21 Dose: 4 mg Pantoprazole Sodium (Protonix -) 40 mg PO DAILY [facility] Last Admin: 12/06/17 09:05 Dose: 40 mg Paroxetine HCl (Paxil -) 10 mg PO DAILY [facility] Last Admin: 12/06/17 09:11 Dose: 10 mg Sodium Chloride ([place] Nasal [place] -) 2 spray NS TID [facility] Last Admin: 12/07/17 06:41 Dose: 2 spray - Objective Vital Signs: Vital Signs Temperature 98.5 F 12/07/17 06:00 Pulse Rate 120 H 12/07/17 06:00 Respiratory Rate 20 12/07/17 06:00 Blood Pressure 135/80 12/07/17 06:00 O2 Sat by Pulse Oximetry (%) 98 12/06/17 21:00 Constitutional: Yes: No Distress, Calm Eyes: No: Sclera Icterus HENT: No: Nasal Congestion Cardiovascular: Yes: Pulse Irregular, JVD (probable (TDS neck habitus, afib arterial pulsations)), S1, S2, Other (PMI non diplaced). No: Gallop, Murmur Respiratory: Yes: CTA Bilaterally, Diminished (L base). No: Accessory Muscle Use Gastrointestinal: Yes: Normal Bowel Sounds, Soft. No: Tenderness Musculoskeletal: Yes: Other (No kyphosis) Extremities: No: Cold Edema: Yes (nonpitting L ankle, +wrap) Integumentary: No: Jaundice Neurological: Yes: Alert, Oriented (x3) Psychiatric: No: Agitated Labs: CBC, BMP 12/05/17 05:30 12/05/17 05:30 INR, PTT INR 1.28 (0.82-1.09) H 12/01/17 18:56 Assessment/Plan tele: AF not well controlled. HRs to 130s. echo 11/2017: nl lv/rv, jozef, mod-sev tr, mod as CXR: fluid new vs prior CT chest: bilat effusions, loculated fluid R fissure a/p: acute diast chf, and TR -receiving lasix 40 iv daily. weight is unchanged. bun/creat/bicarb stable -rpt BMP today (ordered) -repeat echo shows mod as, unchanged from priors. -BNP 3K unchanged vs 09/02 -wt 170-174 when here 09/02. presently 176. -remains very sob with bendopnea which is new sx for her, likely represents high left heart filling pressures. -incr lasix to 80 iv daily--if no wt decline tomorrow and labs stable, would incr further (80 iv bid if good UOP response to 80 iv dose. otherwise add metolazone to 80 iv dose qd) -better HR control of AF may help with diast chf control -AV gradients in moderate range, however ANDI 0.7 (using tech LVOT 2.0cm--if LVOT is smaller her ANDI would be even less. LVOT VTI measurement 15 is low, ? erroneous--vs possibility of paradoxical low-gradient, low-output severe with preserved LVEF here). -no S2 split heard on exam but soft sounds, decr carotid intensity (no PMI palpable). HOWEVER NO MURMUR PRESENT on my exam, hence doubt severe . more likely diast CHF with "innocent bystander" moderate . -agree her AV should be further interrogated to confirm no symptomatic, severe . this can be done with hi quality outpatient echo or outpt cath (once cellulitis is treated). no further inpatient evaluation of AV indicated afib: -HR uncontrolled, ? driving decomp chf (vs reactive to it) -increase metoprolol succ 50 bid to 100mg am, 50mg pm -cont eliquis for AC hld: -cont statin cellulitis: -on abx per ID
[2017-12-07] MEDS: COLLAGENASE CLOSTRIDIUM HIST. 30 GRAMS TUBE TP SCH (10:00)
--- NOTE | 2017-12-07 10:15 | PN ---
Progress Note, Physician History of Present Illness: pulmonary alert,feeling better,less dysoneic,on nasal o2. + kirby,less cough - Current Medication List Current Medications: Active Medications Acetaminophen (Tylenol -) 650 mg PO Q4H PRN PRN Reason: FEVER Last Admin: 12/06/17 06:28 Dose: 650 mg Albuterol Sulfate (Ventolin 0.083% Nebulizer Soln -) 1 amp NEB Q4H PRN PRN Reason: SHORT OF BREATH/WHEEZING Last Admin: 12/06/17 01:33 Dose: 1 amp Albuterol/Ipratropium (Duoneb -) 1 amp NEB RQID [facility] Last Admin: 12/07/17 07:39 Dose: 1 amp Apixaban (Eliquis -) 5 mg PO BID [facility] Last Admin: 12/06/17 22:00 Dose: 5 mg Atorvastatin Calcium (Lipitor -) 10 mg PO HS [facility] Last Admin: 12/06/17 22:00 Dose: 10 mg Collagenase (Santyl -) 1 applic TP DAILY [facility] Last Admin: 12/06/17 09:06 Dose: 1 applic Diltiazem HCl (Cardizem Cd -) 180 mg PO BID [facility] Last Admin: 12/06/17 22:00 Dose: 180 mg Ferrous Sulfate (Feosol -) 325 mg PO DAILY [facility] Last Admin: 12/06/17 09:06 Dose: 325 mg Furosemide (Lasix Injection -) 80 mg IVPUSH DAILY [facility] Levofloxacin (Levaquin 500 Mg Premixed Ivpb -) 500 mg in 100 mls @ 100 mls/hr IVPB DAILY [facility]; Protocol Last Admin: 12/06/17 09:05 Dose: 100 mls/hr Vancomycin HCl 1,000 mg/ (Dextrose) 250 mls @ 166.667 mls/hr IVPB DAILY@1500 [facility]; Protocol Last Admin: 12/06/17 15:49 Dose: 166.667 mls/hr Methylprednisolone Sodium Succinate (Solu-Medrol -) 40 mg IVPUSH Q8H-IV [facility] Stop: 12/08/17 02:01 Last Admin: 12/07/17 01:19 Dose: 40 mg Metoprolol Succinate (Toprol Xl -) 100 mg PO DAILY [facility] Metoprolol Succinate (Toprol Xl -) 50 mg PO DAILY@1800 [facility] Montelukast Sodium (Singulair -) 10 mg PO HS [facility] Last Admin: 12/06/17 22:00 Dose: 10 mg Ondansetron HCl (Zofran Injection) 4 mg IVPB Q6H PRN PRN Reason: NAUSEA Last Admin: 12/02/17 02:21 Dose: 4 mg Pantoprazole Sodium (Protonix -) 40 mg PO DAILY [facility] Last Admin: 12/06/17 09:05 Dose: 40 mg Paroxetine HCl (Paxil -) 10 mg PO DAILY [facility] Last Admin: 12/06/17 09:11 Dose: 10 mg Sodium Chloride ([place] Nasal [place] -) 2 spray NS TID [facility] Last Admin: 12/07/17 06:41 Dose: 2 spray - Objective Vital Signs: Vital Signs Temperature 98.5 F 12/07/17 06:00 Pulse Rate 120 H 12/07/17 06:00 Respiratory Rate 20 12/07/17 06:00 Blood Pressure 135/80 12/07/17 06:00 O2 Sat by Pulse Oximetry (%) 98 12/06/17 21:00 Constitutional: Yes: Well Nourished, Calm Eyes: Yes: WNL HENT: Yes: WNL Neck: Yes: WNL Cardiovascular: Yes: Tachycardia, Pulse Irregular, S1, S2 Respiratory: Yes: Rhonchi (scattered sigrid wheezes wnd rhonchi), Wheezes ( scattered sigrid wheezes) Gastrointestinal: Yes: Normal Bowel Sounds, Soft Extremities: Yes: WNL Edema: Yes Labs: CBC, BMP 12/05/17 05:30 INR, PTT INR 1.28 (0.82-1.09) H 12/01/17 18:56 Problem List - Problems (1) Diastolic heart failure Code(s): I50.30 - UNSPECIFIED DIASTOLIC (CONGESTIVE) HEART FAILURE Qualifiers: Heart failure chronicity: acute on chronic Qualified Code(s): I50.33 - Acute on chronic diastolic (congestive) heart failure (2) Hyperlipidemia Code(s): E78.5 - HYPERLIPIDEMIA, UNSPECIFIED Qualifiers: Hyperlipidemia type: pure hypercholesterolemia Qualified Code(s): E78.00 - Pure hypercholesterolemia, unspecified; E78.0 - Pure hypercholesterolemia (3) Hypertensive cardiopathy Code(s): I11.9 - HYPERTENSIVE HEART DISEASE WITHOUT HEART FAILURE Qualifiers: Heart failure presence: with heart failure (4) Pneumonia Code(s): J18.9 - PNEUMONIA, UNSPECIFIED ORGANISM Qualifiers: Pneumonia type: due to unspecified organism Laterality: unspecified laterality Lung location: unspecified part of lung Qualified Code(s): J18.9 - Pneumonia, unspecified organism (5) Anemia Code(s): D64.9 - ANEMIA, UNSPECIFIED Qualifiers: Anemia type: iron deficiency (6) Aortic stenosis Code(s): I35.0 - NONRHEUMATIC AORTIC (VALVE) STENOSIS Qualifiers: Cardiac valve disease etiology: nonrheumatic Qualified Code(s): I35.0 - Nonrheumatic aortic (valve) stenosis (7) CHF (congestive heart failure) Code(s): I50.9 - HEART FAILURE, UNSPECIFIED Qualifiers: Heart failure type: diastolic Heart failure chronicity: acute on chronic Qualified Code(s): I50.33 - Acute on chronic diastolic (congestive) heart failure (8) Cough with fever Code(s): R05 - COUGH; R50.9 - FEVER, UNSPECIFIED (9) Dyspnea Code(s): R06.00 - DYSPNEA, UNSPECIFIED Qualifiers: Dyspnea type: dyspnea on exertion Qualified Code(s): R06.09 - Other forms of dyspnea (10) PAF (paroxysmal atrial fibrillation) Code(s): I48.0 - PAROXYSMAL ATRIAL FIBRILLATION Assessment/Plan IMP CHF WITH SIGRID EFFUSIONS PNEUMONIA AFIB H/O ASTHMA/BRONCHITIS ANEMIA ELEVATED LACTATE LEVEL HTN HLD PLAN IV ABX PER ID CONT MEDROL WITH TAPER INHALED BRONCHODILATORS RATE CONTROL O2 LASIX F/U CHEST X-RAYS DR VALDES Problem List - Problems (1) Diastolic heart failure Code(s): I50.30 - UNSPECIFIED DIASTOLIC (CONGESTIVE) HEART FAILURE Qualifiers: Heart failure chronicity: acute on chronic Qualified Code(s): I50.33 - Acute on chronic diastolic (congestive) heart failure (2) Hyperlipidemia Code(s): E78.5 - HYPERLIPIDEMIA, UNSPECIFIED Qualifiers: Hyperlipidemia type: pure hypercholesterolemia Qualified Code(s): E78.00 - Pure hypercholesterolemia, unspecified; E78.0 - Pure hypercholesterolemia (3) Hypertensive cardiopathy Code(s): I11.9 - HYPERTENSIVE HEART DISEASE WITHOUT HEART FAILURE Qualifiers: Heart failure presence: with heart failure (4) Pneumonia Code(s): J18.9 - PNEUMONIA, UNSPECIFIED ORGANISM Qualifiers: Pneumonia type: due to unspecified organism Laterality: unspecified laterality Lung location: unspecified part of lung Qualified Code(s): J18.9 - Pneumonia, unspecified organism (5) Anemia Code(s): D64.9 - ANEMIA, UNSPECIFIED Qualifiers: Anemia type: iron deficiency (6) Aortic stenosis Code(s): I35.0 - NONRHEUMATIC AORTIC (VALVE) STENOSIS Qualifiers: Cardiac valve disease etiology: nonrheumatic Qualified Code(s): I35.0 - Nonrheumatic aortic (valve) stenosis (7) CHF (congestive heart failure) Code(s): I50.9 - HEART FAILURE, UNSPECIFIED Qualifiers: Heart failure type: diastolic Heart failure chronicity: acute on chronic Qualified Code(s): I50.33 - Acute on chronic diastolic (congestive) heart failure (8) Cough with fever Code(s): R05 - COUGH; R50.9 - FEVER, UNSPECIFIED (9) Dyspnea Code(s): R06.00 - DYSPNEA, UNSPECIFIED Qualifiers: Dyspnea type: dyspnea on exertion Qualified Code(s): R06.09 - Other forms of dyspnea (10) PAF (paroxysmal atrial fibrillation) Code(s): I48.0 - PAROXYSMAL ATRIAL FIBRILLATION
[2017-12-07] MEDS ORDERED: PT OWN MED DRAWER 7, Y5N ONE (10:16)
[2017-12-07] MEDS: FUROSEMIDE 40 MG/4 ML INJECTABLE VIAL IVPUSH SCH (10:19)
[2017-12-07] MEDS: PANTOPRAZOLE 40 MG TABLET (FP) PO SCH (10:19)
[2017-12-07] MEDS: FERROUS SO4 325 MG TABLET (FP) PO SCH (10:19)
[2017-12-07] MEDS: APIXABAN 5 MG TABLET PO SCH ×2 (10:19→21:23)
[2017-12-07] MEDS: PARoxetine HCL 10 MG TABLET (FP) PO SCH (10:21)
[2017-12-07 10:58] LABS: ANION GAP 11 (8-16); BLOOD UREA NITROGEN 24 mg/dL (7-18); CALCIUM 9.3 mg/dL (8.5-10.1); CHLORIDE 97 mmol/L (98-107); CO2 30 mmol/L (21-32); GLUCOSE,RANDOM 171 mg/dL (74-106); POTASSIUM 4.1 mmol/L (3.5-5.1); SODIUM 138 mmol/L (136-145)
--- NOTE | 2017-12-07 11:38 | PN ---
Progress Note, Physician Chief Complaint: AWAKE DAUGHTER BEDSIDE ON 02 SUPPORT SLOWLY IMPROVING - Current Medication List Current Medications: Active Medications Acetaminophen (Tylenol -) 650 mg PO Q4H PRN PRN Reason: FEVER Last Admin: 12/06/17 06:28 Dose: 650 mg Albuterol Sulfate (Ventolin 0.083% Nebulizer Soln -) 1 amp NEB Q4H PRN PRN Reason: SHORT OF BREATH/WHEEZING Last Admin: 12/06/17 01:33 Dose: 1 amp Albuterol/Ipratropium (Duoneb -) 1 amp NEB RQID [facility] Last Admin: 12/07/17 11:29 Dose: 1 amp Apixaban (Eliquis -) 5 mg PO BID [facility] Last Admin: 12/07/17 10:19 Dose: 5 mg Atorvastatin Calcium (Lipitor -) 10 mg PO HS [facility] Last Admin: 12/06/17 22:00 Dose: 10 mg Collagenase (Santyl -) 1 applic TP DAILY [facility] Last Admin: 12/06/17 09:06 Dose: 1 applic Diltiazem HCl (Cardizem Cd -) 180 mg PO BID [facility] Last Admin: 12/07/17 10:19 Dose: 180 mg Ferrous Sulfate (Feosol -) 325 mg PO DAILY [facility] Last Admin: 12/07/17 10:19 Dose: 325 mg Furosemide (Lasix Injection -) 80 mg IVPUSH DAILY [facility] Last Admin: 12/07/17 10:19 Dose: 80 mg Levofloxacin (Levaquin 500 Mg Premixed Ivpb -) 500 mg in 100 mls @ 100 mls/hr IVPB DAILY [facility]; Protocol Last Admin: 12/07/17 10:48 Dose: 100 mls/hr Vancomycin HCl 1,000 mg/ (Dextrose) 250 mls @ 166.667 mls/hr IVPB DAILY@1500 [facility]; Protocol Last Admin: 12/06/17 15:49 Dose: 166.667 mls/hr Methylprednisolone Sodium Succinate (Solu-Medrol -) 40 mg IVPUSH Q8H-IV [facility] Stop: 12/08/17 02:01 Last Admin: 12/07/17 10:19 Dose: 40 mg Metoprolol Succinate (Toprol Xl -) 100 mg PO DAILY [facility] Last Admin: 12/07/17 10:19 Dose: 100 mg Metoprolol Succinate (Toprol Xl -) 50 mg PO DAILY@1800 [facility] Montelukast Sodium (Singulair -) 10 mg PO HS [facility] Last Admin: 12/06/17 22:00 Dose: 10 mg Ondansetron HCl (Zofran Injection) 4 mg IVPB Q6H PRN PRN Reason: NAUSEA Last Admin: 12/02/17 02:21 Dose: 4 mg Pantoprazole Sodium (Protonix -) 40 mg PO DAILY [facility] Last Admin: 12/07/17 10:19 Dose: 40 mg Paroxetine HCl (Paxil -) 10 mg PO DAILY [facility] Last Admin: 12/07/17 10:21 Dose: 10 mg Sodium Chloride ([place] Nasal [place] -) 2 spray NS TID [facility] Last Admin: 12/07/17 06:41 Dose: 2 spray - Objective Vital Signs: Vital Signs Temperature 98.5 F 12/07/17 06:00 Pulse Rate 120 H 12/07/17 06:00 Respiratory Rate 20 12/07/17 06:00 Blood Pressure 135/80 12/07/17 06:00 O2 Sat by Pulse Oximetry (%) 98 12/06/17 21:00 Constitutional: Yes: Mild Distress Eyes: Yes: WNL HENT: Yes: WNL Neck: Yes: WNL Cardiovascular: Yes: Tachycardia, Pulse Irregular Respiratory: Yes: On Nasal O2 Genitourinary: Yes: WNL Musculoskeletal: Yes: Muscle Weakness Extremities: Yes: Erythema, Other Edema: Yes Edema: LLE: 1+, RLE: 1+ Peripheral Pulses WNL: Yes Integumentary: Yes: Pressure Ulcer (STAGE 3 LEFT LOWER LEG) Neurological: Yes: WNL ...Motor Strength: WNL Psychiatric: Yes: Other Labs: CBC, BMP 12/05/17 05:30 12/07/17 09:25 INR, PTT INR 1.28 (0.82-1.09) H 12/01/17 18:56 Problem List - Problems (1) Pneumonia Code(s): J18.9 - PNEUMONIA, UNSPECIFIED ORGANISM Qualifiers: Pneumonia type: due to unspecified organism Laterality: unspecified laterality Lung location: unspecified part of lung Qualified Code(s): J18.9 - Pneumonia, unspecified organism (2) Sepsis Code(s): A41.9 - SEPSIS, UNSPECIFIED ORGANISM Qualifiers: Sepsis type: sepsis due to unspecified organism Qualified Code(s): A41.9 - Sepsis, unspecified organism (3) Acute kidney injury Code(s): N17.9 - ACUTE KIDNEY FAILURE, UNSPECIFIED (4) Anemia Code(s): D64.9 - ANEMIA, UNSPECIFIED Qualifiers: Anemia type: iron deficiency (5) Aortic stenosis Code(s): I35.0 - NONRHEUMATIC AORTIC (VALVE) STENOSIS Qualifiers: Cardiac valve disease etiology: nonrheumatic Qualified Code(s): I35.0 - Nonrheumatic aortic (valve) stenosis (6) CHF (congestive heart failure) Code(s): I50.9 - HEART FAILURE, UNSPECIFIED Qualifiers: Heart failure type: diastolic Heart failure chronicity: acute on chronic Qualified Code(s): I50.33 - Acute on chronic diastolic (congestive) heart failure (7) Dyspnea Code(s): R06.00 - DYSPNEA, UNSPECIFIED Qualifiers: Dyspnea type: dyspnea on exertion Qualified Code(s): R06.09 - Other forms of dyspnea (8) Leg ulcer Code(s): L97.909 - NON-PRS CHRONIC ULC UNSP PRT OF UNSP LOW LEG W UNSP SEVERITY Qualifiers: Laterality: left Non-pressure ulcer stage: limited to breakdown of skin Qualified Code(s): L97.921 - Non-pressure chronic ulcer of unspecified part of left lower leg limited to breakdown of skin (9) PAF (paroxysmal atrial fibrillation) Code(s): I48.0 - PAROXYSMAL ATRIAL FIBRILLATION (10) Anxiety Code(s): F41.9 - ANXIETY DISORDER, UNSPECIFIED Assessment/Plan ACUTE DECOMPENSATED DIASTOLIC HEAR FAILURE EF 69% AFIB TACHY UNCONTROLLED METOPROLOL INCREASED PER CARDIOLOGY ELIQUIS BID OOB TO CHAIR WITH PHYSICAL THERAPY INCENTIVE SPIROMETRY 02 SUPPORT ABX PER PULM/TAPER OFF PREDNISONE
[2017-12-07] MEDS: VANCOMYCIN 1,000 MG in DEXTROSE 5%-WATER - 250 ML IVPB SCH (15:09)
--- NOTE | 2017-12-07 16:46 | PN ---
Progress Note, Physician Chief Complaint: Awake, alert Reports less leg pain No c/o chest pain/ dyspnea/ cough No fever/ chills No adverse rxn to antibiotics Temps down Afebrile WBC improved WNL - Current Medication List Current Medications: Active Medications Acetaminophen (Tylenol -) 650 mg PO Q4H PRN PRN Reason: FEVER Last Admin: 12/06/17 06:28 Dose: 650 mg Albuterol Sulfate (Ventolin 0.083% Nebulizer Soln -) 1 amp NEB Q4H PRN PRN Reason: SHORT OF BREATH/WHEEZING Last Admin: 12/06/17 01:33 Dose: 1 amp Albuterol/Ipratropium (Duoneb -) 1 amp NEB RQID [facility] Last Admin: 12/07/17 16:08 Dose: 1 amp Apixaban (Eliquis -) 5 mg PO BID [facility] Last Admin: 12/07/17 10:19 Dose: 5 mg Atorvastatin Calcium (Lipitor -) 10 mg PO [facility] Last Admin: 12/06/17 22:00 Dose: 10 mg Collagenase (Santyl -) 1 applic TP DAILY [facility] Last Admin: 12/07/17 10:00 Dose: 1 applic Diltiazem HCl (Cardizem Cd -) 180 mg PO BID [facility] Last Admin: 12/07/17 10:19 Dose: 180 mg Ferrous Sulfate (Feosol -) 325 mg PO DAILY [facility] Last Admin: 12/07/17 10:19 Dose: 325 mg Furosemide (Lasix Injection -) 80 mg IVPUSH DAILY [facility] Last Admin: 12/07/17 10:19 Dose: 80 mg Levofloxacin (Levaquin 500 Mg Premixed Ivpb -) 500 mg in 100 mls @ 100 mls/hr IVPB DAILY [facility]; Protocol Last Admin: 12/07/17 10:48 Dose: 100 mls/hr Vancomycin HCl 1,000 mg/ (Dextrose) 250 mls @ 166.667 mls/hr IVPB DAILY@1500 [facility]; Protocol Last Admin: 12/07/17 15:09 Dose: 166.667 mls/hr Metoprolol Succinate (Toprol Xl -) 100 mg PO DAILY [facility] Last Admin: 12/07/17 10:19 Dose: 100 mg Metoprolol Succinate (Toprol Xl -) 50 mg PO DAILY@1800 [facility] Montelukast Sodium (Singulair -) 10 mg PO [facility] Last Admin: 12/06/17 22:00 Dose: 10 mg Ondansetron HCl (Zofran Injection) 4 mg IVPB Q6H PRN PRN Reason: NAUSEA Last Admin: 12/02/17 02:21 Dose: 4 mg Pantoprazole Sodium (Protonix -) 40 mg PO DAILY [facility] Last Admin: 12/07/17 10:19 Dose: 40 mg Paroxetine HCl (Paxil -) 10 mg PO DAILY [facility] Last Admin: 12/07/17 10:21 Dose: 10 mg Sodium Chloride ([place] Nasal [place] -) 2 spray NS TID [facility] Last Admin: 12/07/17 15:11 Dose: 2 spray - Objective Vital Signs: Vital Signs Temperature 98.5 F 12/07/17 14:00 Pulse Rate 108 H 12/07/17 14:00 Respiratory Rate 20 12/07/17 14:00 Blood Pressure 110/68 12/07/17 14:00 O2 Sat by Pulse Oximetry (%) 98 12/06/17 21:00 Constitutional: Yes: No Distress Cardiovascular: Yes: Regular Rate and Rhythm, S1, S2 Respiratory: Yes: CTA Bilaterally Gastrointestinal: Yes: Normal Bowel Sounds, Soft, Abdomen, Obese Extremities: Yes: Other (decreased erythema L LE) Labs: CBC, BMP 12/05/17 05:30 12/07/17 09:25 INR, PTT INR 1.28 (0.82-1.09) H 12/01/17 18:56 Assessment/Plan Cellulitis L LE improved Non healing L foot ulcer Loculated fluid collection PCN allergy Continue vancomycin/ levaquin vancomycin level noted. Will increase to q12h Anticipate additional 24h IV antibiotics Local wound care
[2017-12-07] MEDS: MONTELUKAST NA 10 MG TABLET PO SCH (21:23)
[2017-12-07] MEDS: ACETAMINOPHEN 325 MG TABLET (FP) PO PRN (21:23)
[2017-12-07] MEDS: ATORVASTATIN CA 10 MG TABLET (FP) PO SCH (21:25)
[2017-12-08] MEDS: SODIUM CHLORIDE NASAL SPRAY 44 ML BOTTLE NS SCH ×3 (06:27→21:01)
[2017-12-08] MEDS: ALBUTEROL SO4 2.5/IPRATROPIUM 0.5 INH SOL 3 ML VIAL.NEB. NEB SCH ×4 (07:10→20:28)
[2017-12-08 08:58] LABS: ANION GAP 10 (8-16); BLOOD UREA NITROGEN 34 mg/dL (7-18); CHLORIDE 95 mmol/L (98-107); CO2 32 mmol/L (21-32); CREATININE 1.1 mg/dL (0.55-1.02); GLUCOSE,RANDOM 153 mg/dL (74-106); POTASSIUM 4.5 mmol/L (3.5-5.1); SODIUM 137 mmol/L (136-145)
[2017-12-08] MEDS: FUROSEMIDE 40 MG/4 ML INJECTABLE VIAL IVPUSH SCH (10:03)
[2017-12-08] MEDS: APIXABAN 5 MG TABLET PO SCH ×2 (10:04→21:00)
[2017-12-08] MEDS: PANTOPRAZOLE 40 MG TABLET (FP) PO SCH (10:04)
[2017-12-08] MEDS: FERROUS SO4 325 MG TABLET (FP) PO SCH (10:04)
[2017-12-08] MEDS: PARoxetine HCL 10 MG TABLET (FP) PO SCH (10:04)
[2017-12-08] MEDS: COLLAGENASE CLOSTRIDIUM HIST. 30 GRAMS TUBE TP SCH (10:04)
--- NOTE | 2017-12-08 10:07 | PN ---
Progress Note (short form) - Note Progress Note: s: chronic sob persists, no cp palps dizzy o: Vital Signs Period Temp Pulse Resp BP Sys/Roman Pulse Ox Last 24 Hr 97.9 F-98.5 F 96-130 20-20 100-123/62-87 98-98 nad no jvd irreg s1s2 no mrg cta bl nl eff aao3 trace le edema abd nt nd pos bs Current Medications Generic Name Dose Route Start Last Admin Trade Name Freq PRN Reason Stop Dose Admin Acetaminophen 650 mg 12/02/17 01:33 12/07/17 21:23 Tylenol - PO 650 mg Q4H PRN Administration FEVER Albuterol Sulfate 1 amp 12/05/17 03:06 12/06/17 01:33 Ventolin 0.083% Nebulizer Soln - NEB 1 amp Q4H PRN Administration SHORT OF BREATH/WHEEZING Albuterol/Ipratropium 1 amp 12/04/17 16:00 12/08/17 07:10 Duoneb - NEB 1 amp RQID [facility] Administration Apixaban 5 mg 12/03/17 22:00 12/07/17 21:23 Eliquis - PO 5 mg BID [facility] Administration Atorvastatin Calcium 10 mg 12/03/17 22:00 12/07/17 21:25 Lipitor - PO 10 mg HS [facility] Administration Collagenase 1 applic 12/02/17 13:00 12/07/17 10:00 Santyl - TP 1 applic DAILY [facility] Administration Diltiazem HCl 180 mg 12/05/17 22:00 12/07/17 21:23 Cardizem Cd - PO 180 mg BID [facility] Administration Ferrous Sulfate 325 mg 12/02/17 10:00 12/07/17 10:19 Feosol - PO 325 mg DAILY [facility] Administration Furosemide 80 mg 12/07/17 10:00 12/07/17 10:19 Lasix Injection - IVPUSH 80 mg DAILY [facility] Administration Furosemide 80 mg 12/08/17 16:00 Lasix Injection - IVPUSH 12/08/17 16:01 ONCE ONE Levofloxacin 500 mg in 100 mls @ 100 mls/hr 12/03/17 10:00 12/07/17 10:48 Levaquin 500 Mg Premixed Ivpb - IVPB 100 mls/hr DAILY [facility] Administration Protocol Vancomycin HCl 1,000 mg/ 250 mls @ 166.667 mls/hr 12/03/17 15:00 12/07/17 15: 09 Dextrose IVPB 166.667 mls/hr DAILY@1500 [facility] Administration Protocol Metoprolol Succinate 100 mg 12/07/17 10:00 12/07/17 10:19 Toprol Xl - PO 100 mg DAILY [facility] Administration Metoprolol Succinate 50 mg 12/07/17 18:00 12/07/17 17:42 Toprol Xl - PO 50 mg DAILY@1800 [facility] Administration Montelukast Sodium 10 mg 12/01/17 22:15 12/07/17 21:23 Singulair - PO 10 mg HS [facility] Administration Ondansetron HCl 4 mg 12/02/17 01:34 12/02/17 02:21 Zofran Injection IVPB 4 mg Q6H PRN Administration NAUSEA Pantoprazole Sodium 40 mg 12/02/17 10:00 12/07/17 10:19 Protonix - PO 40 mg DAILY [facility] Administration Paroxetine HCl 10 mg 12/02/17 10:00 12/07/17 10:21 Paxil - PO 10 mg DAILY [facility] Administration Sodium Chloride 2 spray 12/06/17 14:00 12/08/17 06:27 [place] Nasal [place] - NS 2 spray TID [facility] Administration CBC, BMP 12/05/17 05:30 12/08/17 05:15 tele: AF, controlled rate echo 11/2017: nl lv/rv, jozef, mod-sev tr, mod as CXR: fluid new vs prior CT chest: bilat effusions, loculated fluid R fissure a/p: acute diast chf, and TR -receiving lasix 40 iv daily. weight is unchanged. bun/creat/bicarb stable -rpt BMP today (ordered) -repeat echo shows mod as, unchanged from priors. -BNP 3K unchanged vs 09/02 -wt 170-174 when here 09/02. presently 176. -remains very sob with bendopnea which is new sx for her, likely represents high left heart filling pressures. 12/07-incr lasix to 80 iv daily--if no wt decline tomorrow and labs stable, would incr further (80 iv bid if good UOP response to 80 iv dose. otherwise add metolazone to 80 iv dose qd) 12/08: will give lasix 80 bid today -AV gradients in moderate range, however ANDI 0.7 (using tech LVOT 2.0cm--if LVOT is smaller her ANDI would be even less. LVOT VTI measurement 15 is low, ? erroneous--vs possibility of paradoxical low-gradient, low-output severe with preserved LVEF here). -no S2 split heard on exam but soft sounds, decr carotid intensity (no PMI palpable). HOWEVER NO MURMUR PRESENT on my exam, hence doubt severe . more likely diast CHF with "innocent bystander" moderate . -agree her AV should be further interrogated to confirm no symptomatic, severe . this can be done with hi quality outpatient echo or outpt cath (once cellulitis is treated). no further inpatient evaluation of AV indicated afib: -rate ok on current meds -cont eliquis for AC hld: -cont statin cellulitis: -on abx per ID
--- NOTE | 2017-12-08 12:07 | PN ---
Progress Note, Physician - Current Medication List Current Medications: Active Medications Acetaminophen (Tylenol -) 650 mg PO Q4H PRN PRN Reason: FEVER Last Admin: 12/07/17 21:23 Dose: 650 mg Albuterol Sulfate (Ventolin 0.083% Nebulizer Soln -) 1 amp NEB Q4H PRN PRN Reason: SHORT OF BREATH/WHEEZING Last Admin: 12/06/17 01:33 Dose: 1 amp Albuterol/Ipratropium (Duoneb -) 1 amp NEB RQID [facility] Last Admin: 12/08/17 07:10 Dose: 1 amp Apixaban (Eliquis -) 5 mg PO BID [facility] Last Admin: 12/08/17 10:04 Dose: 5 mg Atorvastatin Calcium (Lipitor -) 10 mg PO [facility] Last Admin: 12/07/17 21:25 Dose: 10 mg Collagenase (Santyl -) 1 applic TP DAILY [facility] Last Admin: 12/08/17 10:04 Dose: 1 applic Diltiazem HCl (Cardizem Cd -) 180 mg PO BID [facility] Last Admin: 12/08/17 10:04 Dose: 180 mg Ferrous Sulfate (Feosol -) 325 mg PO DAILY [facility] Last Admin: 12/08/17 10:04 Dose: 325 mg Furosemide (Lasix Injection -) 80 mg IVPUSH DAILY [facility] Last Admin: 12/08/17 10:03 Dose: 80 mg Furosemide (Lasix Injection -) 80 mg IVPUSH ONCE ONE Stop: 12/08/17 16:01 Levofloxacin (Levaquin 500 Mg Premixed Ivpb -) 500 mg in 100 mls @ 100 mls/hr IVPB DAILY [facility]; Protocol Last Admin: 12/08/17 10:21 Dose: 100 mls/hr Vancomycin HCl 1,000 mg/ (Dextrose) 250 mls @ 166.667 mls/hr IVPB DAILY@1500 [facility]; Protocol Last Admin: 12/07/17 15:09 Dose: 166.667 mls/hr Metoprolol Succinate (Toprol Xl -) 100 mg PO DAILY [facility] Last Admin: 12/08/17 10:04 Dose: 100 mg Metoprolol Succinate (Toprol Xl -) 50 mg PO DAILY@1800 [facility] Last Admin: 12/07/17 17:42 Dose: 50 mg Montelukast Sodium (Singulair -) 10 mg PO [facility] Last Admin: 12/07/17 21:23 Dose: 10 mg Ondansetron HCl (Zofran Injection) 4 mg IVPB Q6H PRN PRN Reason: NAUSEA Last Admin: 12/02/17 02:21 Dose: 4 mg Pantoprazole Sodium (Protonix -) 40 mg PO DAILY [facility] Last Admin: 12/08/17 10:04 Dose: 40 mg Paroxetine HCl (Paxil -) 10 mg PO DAILY [facility] Last Admin: 12/08/17 10:04 Dose: 10 mg Sodium Chloride ([place] Nasal [place] -) 2 spray NS TID [facility] Last Admin: 12/08/17 06:27 Dose: 2 spray - Objective Vital Signs: Vital Signs Temperature 98.2 F 12/08/17 10:00 Pulse Rate 110 H 12/08/17 10:00 Respiratory Rate 20 12/08/17 10:00 Blood Pressure 118/76 12/08/17 10:00 O2 Sat by Pulse Oximetry (%) 98 12/08/17 09:00 Cardiovascular: Yes: S1, S2 Respiratory: Yes: CTA Bilaterally, On Nasal O2 Gastrointestinal: Yes: Normal Bowel Sounds, Soft Edema: Yes Labs: CBC, BMP 12/05/17 05:30 12/08/17 05:15 INR, PTT INR 1.28 (0.82-1.09) H 12/01/17 18:56 Assessment/Plan - Problems (1) Diastolic heart failure Assessment/Plan: acute on chronic iv lasix echo done Code(s): I50.30 - UNSPECIFIED DIASTOLIC (CONGESTIVE) HEART FAILURE Qualifiers: Heart failure chronicity: acute on chronic Qualified Code(s): I50.33 - Acute on chronic diastolic (congestive) heart failure (2) Persistent atrial fibrillation Assessment/Plan: toprol xl and eliquis cardizem Code(s): I48.1 - PERSISTENT ATRIAL FIBRILLATION (3) Dyspnea Assessment/Plan: oxygen- humidified bronchodilators saline nasal sprays for dry nasal mucose h/o asthma singular Code(s): R06.00 - DYSPNEA, UNSPECIFIED Qualifiers: Dyspnea type: dyspnea on exertion Qualified Code(s): R06.09 - Other forms of dyspnea (4) Cellulitis Assessment/Plan: rafa GROSS on board PCN allergy wbc count is trending down Code(s): L03.90 - CELLULITIS, UNSPECIFIED Qualifiers: Site of cellulitis of extremity: lower extremity Laterality: left
[2017-12-08] MEDS: VANCOMYCIN 1,000 MG in DEXTROSE 5%-WATER - 250 ML IVPB SCH (14:33)
[2017-12-08] MEDS: ACETAMINOPHEN 325 MG TABLET (FP) PO PRN ×2 (15:15→20:59)
[2017-12-08] MEDS ORDERED: FUROSEMIDE 40 MG/4 ML INJECTABLE VIAL IVPUSH ONE (16:00)
[2017-12-08] MEDS: MONTELUKAST NA 10 MG TABLET PO SCH (21:00)
[2017-12-08] MEDS: ATORVASTATIN CA 10 MG TABLET (FP) PO SCH (21:00)
[2017-12-09] MEDS: SODIUM CHLORIDE NASAL SPRAY 44 ML BOTTLE NS SCH ×3 (06:20→21:18)
[2017-12-09 07:03] LABS: BASO % 0.1 % (0-2.0); EOS % 0.6 % (0-4.5); HEMATOCRIT 30.1 % (32.4-45.2); LYMPH % 24.9 % (8-40); MCH 27.7 pg (25.7-33.7); MCHC 33.2 g/dl (32.0-36.0); MEAN CELL VOLUME 83.2 fl (80-96); MEAN PLT VOLUME 7.4 fl (7.5-11.1); MONO % 10.6 % (3.8-10.2); NEUT % 63.8 % (42.8-82.8); PLATELET COUNT 303 K/MM3 (134-434); RBC 3.62 M/mm3 (3.60-5.2); RDW 15.8 % (11.6-15.6); WHITE BLOOD COUNT 8.7 K/mm3 (4.0-10.0)
[2017-12-09 07:33] LABS: CHLORIDE 93 mmol/L (98-107); POTASSIUM 4.2 mmol/L (3.5-5.1); SODIUM 137 mmol/L (136-145)
[2017-12-09 07:48] LABS: ALK PHOS 101 U/L (45-117); ANION GAP 7 (8-16); BILIRUBIN,TOTAL 0.3 mg/dL (0.2-1.0); BLOOD UREA NITROGEN 47 mg/dL (7-18); CALCIUM 8.4 mg/dL (8.5-10.1); CO2 37 mmol/L (21-32); CREATININE 1.4 mg/dL (0.55-1.02); GLUCOSE,RANDOM 92 mg/dL (74-106); SGOT/AST 48 U/L (15-37); SGPT/ALT 79 U/L (12-78); TOT PROT 6.2 g/dl (6.4-8.2)
[2017-12-09] MEDS: ALBUTEROL SO4 2.5/IPRATROPIUM 0.5 INH SOL 3 ML VIAL.NEB. NEB SCH ×2 (08:05→11:45)
[2017-12-09] MEDS: PANTOPRAZOLE 40 MG TABLET (FP) PO SCH (10:58)
[2017-12-09] MEDS: APIXABAN 5 MG TABLET PO SCH ×2 (10:58→21:17)
[2017-12-09] MEDS: FERROUS SO4 325 MG TABLET (FP) PO SCH (10:58)
[2017-12-09] MEDS: COLLAGENASE CLOSTRIDIUM HIST. 30 GRAMS TUBE TP SCH (10:59)
[2017-12-09] MEDS: PARoxetine HCL 10 MG TABLET (FP) PO SCH (10:59)
[2017-12-09 11:35] LABS: ANISOCYTOSIS 0; MACROCYTOSIS 0; PLATELET ESTIMATE NORMAL
--- NOTE | 2017-12-09 11:35 | PN ---
Progress Note, Physician - Current Medication List Current Medications: Active Medications Acetaminophen (Tylenol -) 650 mg PO Q4H PRN PRN Reason: FEVER Last Admin: 12/08/17 20:59 Dose: 650 mg Albuterol Sulfate (Ventolin 0.083% Nebulizer Soln -) 1 amp NEB Q4H PRN PRN Reason: SHORT OF BREATH/WHEEZING Last Admin: 12/06/17 01:33 Dose: 1 amp Albuterol/Ipratropium (Duoneb -) 1 amp NEB RQID [facility] Last Admin: 12/09/17 08:05 Dose: 1 amp Apixaban (Eliquis -) 5 mg PO BID [facility] Last Admin: 12/09/17 10:58 Dose: 5 mg Atorvastatin Calcium (Lipitor -) 10 mg PO [facility] Last Admin: 12/08/17 21:00 Dose: 10 mg Collagenase (Santyl -) 1 applic TP DAILY [facility] Last Admin: 12/09/17 10:59 Dose: 1 applic Diltiazem HCl (Cardizem Cd -) 180 mg PO BID [facility] Last Admin: 12/09/17 10:58 Dose: 180 mg Ferrous Sulfate (Feosol -) 325 mg PO DAILY [facility] Last Admin: 12/09/17 10:58 Dose: 325 mg Levofloxacin (Levaquin 500 Mg Premixed Ivpb -) 500 mg in 100 mls @ 100 mls/hr IVPB DAILY [facility]; Protocol Last Admin: 12/09/17 11:03 Dose: 100 mls/hr Vancomycin HCl 1,000 mg/ (Dextrose) 250 mls @ 166.667 mls/hr IVPB DAILY@1500 [facility]; Protocol Last Admin: 12/08/17 14:33 Dose: 166.667 mls/hr Metoprolol Succinate (Toprol Xl -) 100 mg PO DAILY [facility] Last Admin: 12/09/17 10:58 Dose: 100 mg Metoprolol Succinate (Toprol Xl -) 50 mg PO DAILY@1800 [facility] Last Admin: 12/08/17 17:36 Dose: 50 mg Montelukast Sodium (Singulair -) 10 mg PO HS [facility] Last Admin: 12/08/17 21:00 Dose: 10 mg Ondansetron HCl (Zofran Injection) 4 mg IVPB Q6H PRN PRN Reason: NAUSEA Last Admin: 06/17/18 02:21 Dose: 4 mg Pantoprazole Sodium (Protonix -) 40 mg PO DAILY [facility] Last Admin: 12/09/17 10:58 Dose: 40 mg Paroxetine HCl (Paxil -) 10 mg PO DAILY [facility] Last Admin: 12/09/17 10:59 Dose: 10 mg Sodium Chloride ([place] Nasal [place] -) 2 spray NS TID [facility] Last Admin: 12/09/17 06:20 Dose: 2 spray - Objective Vital Signs: Vital Signs Temperature 98.4 F 12/09/17 05:51 Pulse Rate 120 H 12/09/17 05:51 Respiratory Rate 20 12/09/17 05:51 Blood Pressure 109/80 12/09/17 05:51 O2 Sat by Pulse Oximetry (%) 97 12/08/17 20:28 Cardiovascular: Yes: S1, S2 Respiratory: Yes: Regular, CTA Bilaterally Gastrointestinal: Yes: Normal Bowel Sounds, Soft Edema: Yes Labs: CBC, BMP 12/09/17 05:30 12/09/17 05:30 INR, PTT INR 1.28 (0.82-1.09) H 12/01/17 18:56 Assessment/Plan - Problems (1) Diastolic heart failure Assessment/Plan: acute on chronic iv lasix echo done Code(s): I50.30 - UNSPECIFIED DIASTOLIC (CONGESTIVE) HEART FAILURE Qualifiers: Heart failure chronicity: acute on chronic Qualified Code(s): I50.33 - Acute on chronic diastolic (congestive) heart failure (2) Persistent atrial fibrillation Assessment/Plan: toprol xl and eliquis cardizem Code(s): I48.1 - PERSISTENT ATRIAL FIBRILLATION (3) Dyspnea Assessment/Plan: oxygen- humidified bronchodilators saline nasal sprays for dry nasal mucose h/o asthma singular Code(s): R06.00 - DYSPNEA, UNSPECIFIED Qualifiers: Dyspnea type: dyspnea on exertion Qualified Code(s): R06.09 - Other forms of dyspnea (4) Cellulitis Assessment/Plan: rafa GROSS on board PCN allergy wbc count is trending down Code(s): L03.90 - CELLULITIS, UNSPECIFIED Qualifiers: Site of cellulitis of extremity: lower extremity Laterality: left
--- NOTE | 2017-12-09 12:00 | PN ---
Progress Note (short form) - Note Progress Note: s: sob stable/little better, no cp palps dizzy o: Vital Signs Period Temp Pulse Resp BP Sys/Roman Pulse Ox Last 24 Hr 97.7 F-98.4 F 105-120 20-20 109-139/45-80 97 nad no jvd irreg s1s2 no mrg cta bl nl eff aao3 trace le edema abd nt nd pos bs Current Medications Generic Name Dose Route Start Last Admin Trade Name Freq PRN Reason Stop Dose Admin Acetaminophen 650 mg 12/02/17 01:33 12/08/17 20:59 Tylenol - PO 650 mg Q4H PRN Administration FEVER Albuterol Sulfate 1 amp 12/05/17 03:06 12/06/17 01:33 Ventolin 0.083% Nebulizer Soln - NEB 1 amp Q4H PRN Administration SHORT OF BREATH/WHEEZING Albuterol/Ipratropium 1 amp 12/04/17 16:00 12/09/17 11:45 Duoneb - NEB 1 amp RQID DARIEL Administration Apixaban 5 mg 12/03/17 22:00 12/09/17 10:58 Eliquis - PO 5 mg BID DARIEL Administration Atorvastatin Calcium 10 mg 12/03/17 22:00 12/08/17 21:00 Lipitor - PO 10 mg HS DARIEL Administration Collagenase 1 applic 12/02/17 13:00 12/09/17 10:59 Santyl - TP 1 applic DAILY DARIEL Administration Diltiazem HCl 180 mg 12/05/17 22:00 12/09/17 10:58 Cardizem Cd - PO 180 mg BID DARIEL Administration Ferrous Sulfate 325 mg 12/02/17 10:00 12/09/17 10:58 Feosol - PO 325 mg DAILY [facility] Administration Levofloxacin 500 mg in 100 mls @ 100 mls/hr 12/03/17 10:00 12/09/17 11:03 Levaquin 500 Mg Premixed Ivpb - IVPB 100 mls/hr DAILY [facility] Administration Protocol Vancomycin HCl 1,000 mg/ 250 mls @ 166.667 mls/hr 12/03/17 15:00 12/08/17 14: 33 Dextrose IVPB 166.667 mls/hr DAILY@1500 DARIEL Administration Protocol Metoprolol Succinate 100 mg 12/07/17 10:00 12/09/17 10:58 Toprol Xl - PO 100 mg DAILY D[facility] Administration Metoprolol Succinate 50 mg 12/07/17 18:00 12/08/17 17:36 Toprol Xl - PO 50 mg DAILY@1800 [facility] Administration Montelukast Sodium 10 mg 12/01/17 22:15 12/08/17 21:00 Singulair - PO 10 mg HS DARIEL Administration Ondansetron HCl 4 mg 12/02/17 01:34 12/02/17 02:21 Zofran Injection IVPB 4 mg Q6H PRN Administration NAUSEA Pantoprazole Sodium 40 mg 12/02/17 10:00 12/09/17 10:58 Protonix - PO 40 mg DAILY DARI[facility] Administration Paroxetine HCl 10 mg 12/02/17 10:00 12/09/17 10:59 Paxil - PO 10 mg DAILY [facility] Administration Sodium Chloride 2 spray 12/06/17 14:00 12/09/17 06:20 [place] Nasal [place] - NS 2 spray TID DARIEL Administration CBC, BMP 12/09/17 05:30 12/09/17 05:30 tele: AF, controlled rate echo 11/2017: nl lv/rv, jozef, mod-sev tr, mod as CXR: fluid new vs prior CT chest: bilat effusions, loculated fluid R fissure a/p: acute diast chf, and TR -receiving lasix 40 iv daily. weight is unchanged. bun/creat/bicarb stable -rpt BMP today (ordered) -repeat echo shows mod as, unchanged from priors. -BNP 3K unchanged vs 09/02 -wt 170-174 when here 09/02. presently 176. -remains very sob with bendopnea which is new sx for her, likely represents high left heart filling pressures. 12/07-incr lasix to 80 iv daily--if no wt decline tomorrow and labs stable, would incr further (80 iv bid if good UOP response to 80 iv dose. otherwise add metolazone to 80 iv dose qd) 12/08: will give lasix 80 bid today 12/09: bun/cr bumped up and wt has remain unchanged so will dc iv lasix. resume lasix 40 po bid when cr normalizes. -AV gradients in moderate range, however ANDI 0.7 (using tech LVOT 2.0cm--if LVOT is smaller her ANDI would be even less. LVOT VTI measurement 15 is low, ? erroneous--vs possibility of paradoxical low-gradient, low-output severe with preserved LVEF here). -no S2 split heard on exam but soft sounds, decr carotid intensity (no PMI palpable). HOWEVER NO MURMUR PRESENT on my exam, hence doubt severe . more likely diast CHF with "innocent bystander" moderate . -agree her AV should be further interrogated to confirm no symptomatic, severe . this can be done with hi quality outpatient echo or outpt cath (once cellulitis is treated). no further inpatient evaluation of AV indicated afib: -rate ok on current meds -cont eliquis for AC hld: -cont statin cellulitis: -on abx per ID
--- NOTE | 2017-12-09 12:12 | PN ---
Progress Note (short form) - Note Progress Note: PULMONARY States breathing is better. +nonproductive cough. Vital Signs Period Temp Pulse Resp BP Sys/Roman Pulse Ox Last 24 Hr 97.7 F-98.4 F 105-120 20-20 109-139/45-80 97 Gen: NAD at rest Heart: RRR Lung: decreased breath sounds at the bases Abd: soft, nontender Ext: + edema CBC, BMP 12/09/17 05:30 12/09/17 05:30 Active Medications Acetaminophen (Tylenol -) 650 mg PO Q4H PRN PRN Reason: FEVER Last Admin: 12/08/17 20:59 Dose: 650 mg Albuterol Sulfate (Ventolin 0.083% Nebulizer Soln -) 1 amp NEB Q4H PRN PRN Reason: SHORT OF BREATH/WHEEZING Last Admin: 12/06/17 01:33 Dose: 1 amp Albuterol/Ipratropium (Duoneb -) 1 amp NEB RQID [facility] Last Admin: 12/09/17 11:45 Dose: 1 amp Apixaban (Eliquis -) 5 mg PO BID [facility] Last Admin: 12/09/17 10:58 Dose: 5 mg Atorvastatin Calcium (Lipitor -) 10 mg PO HS [facility] Last Admin: 12/08/17 21:00 Dose: 10 mg Collagenase (Santyl -) 1 applic TP DAILY [facility] Last Admin: 12/09/17 10:59 Dose: 1 applic Diltiazem HCl (Cardizem Cd -) 180 mg PO BID [facility] Last Admin: 12/09/17 10:58 Dose: 180 mg Ferrous Sulfate (Feosol -) 325 mg PO DAILY [facility] Last Admin: 12/09/17 10:58 Dose: 325 mg Levofloxacin (Levaquin 500 Mg Premixed Ivpb -) 500 mg in 100 mls @ 100 mls/hr IVPB DAILY [facility]; Protocol Last Admin: 12/09/17 11:03 Dose: 100 mls/hr Vancomycin HCl 1,000 mg/ (Dextrose) 250 mls @ 166.667 mls/hr IVPB DAILY@1500 [facility]; Protocol Last Admin: 12/08/17 14:33 Dose: 166.667 mls/hr Metoprolol Succinate (Toprol Xl -) 100 mg PO DAILY [facility] Last Admin: 12/09/17 10:58 Dose: 100 mg Metoprolol Succinate (Toprol Xl -) 50 mg PO DAILY@1800 [facility] Last Admin: 12/08/17 17:36 Dose: 50 mg Montelukast Sodium (Singulair -) 10 mg PO HS [facility] Last Admin: 12/08/17 21:00 Dose: 10 mg Ondansetron HCl (Zofran Injection) 4 mg IVPB Q6H PRN PRN Reason: NAUSEA Last Admin: 12/02/17 02:21 Dose: 4 mg Pantoprazole Sodium (Protonix -) 40 mg PO DAILY [facility] Last Admin: 12/09/17 10:58 Dose: 40 mg Paroxetine HCl (Paxil -) 10 mg PO DAILY [facility] Last Admin: 12/09/17 10:59 Dose: 10 mg Sodium Chloride ([place] Nasal [place] -) 2 spray NS TID [facility] Last Admin: 12/09/17 06:20 Dose: 2 spray A/P r/o Pneumonia Acute on Chronic Diastolic Heart Failure Aortic Stenosis Atrial Fibrillation - continue empiric antibiotics - lasix - monitor urine output, creatinine - rate control - continue anticoagulation - inhaled bronchodilators - O2 as needed - DVT prophylaxis
[2017-12-09] MEDS: VANCOMYCIN 1,000 MG in DEXTROSE 5%-WATER - 250 ML IVPB SCH (15:56)
[2017-12-09] MEDS: ACETAMINOPHEN 325 MG TABLET (FP) PO PRN (21:16)
[2017-12-09] MEDS: ATORVASTATIN CA 10 MG TABLET (FP) PO SCH (21:17)
[2017-12-09] MEDS: MONTELUKAST NA 10 MG TABLET PO SCH (21:18)
[2017-12-10 06:18] LABS: BASO % 0.3 % (0-2.0); EOS % 2.5 % (0-4.5); HEMATOCRIT 28.7 % (32.4-45.2); HEMOGLOBIN 9.5 GM/dL (10.7-15.3); LYMPH % 22.2 % (8-40); MCH 27.8 pg (25.7-33.7); MCHC 33.2 g/dl (32.0-36.0); MEAN CELL VOLUME 83.5 fl (80-96); MEAN PLT VOLUME 7.2 fl (7.5-11.1); MONO % 10.4 % (3.8-10.2); NEUT % 64.6 % (42.8-82.8); PLATELET COUNT 297 K/MM3 (134-434); RBC 3.43 M/mm3 (3.60-5.2); RDW 15.6 % (11.6-15.6); WHITE BLOOD COUNT 7.8 K/mm3 (4.0-10.0)
[2017-12-10] MEDS: SODIUM CHLORIDE NASAL SPRAY 44 ML BOTTLE NS SCH ×2 (06:28→14:57)
[2017-12-10 06:49] LABS: ALBUMIN 2.9 g/dl (3.4-5.0); ANION GAP 4 (8-16); BLOOD UREA NITROGEN 39 mg/dL (7-18); CALCIUM 8.5 mg/dL (8.5-10.1); CHLORIDE 97 mmol/L (98-107); CO2 38 mmol/L (21-32); GLUCOSE,RANDOM 113 mg/dL (74-106); POTASSIUM 4.5 mmol/L (3.5-5.1); SODIUM 139 mmol/L (136-145)
[2017-12-10 06:53] LABS: ALK PHOS 94 U/L (45-117); BILIRUBIN,TOTAL 0.4 mg/dL (0.2-1.0); CREATININE 1.1 mg/dL (0.55-1.02); SGOT/AST 25 U/L (15-37); SGPT/ALT 58 U/L (12-78); TOT PROT 5.8 g/dl (6.4-8.2)
--- NOTE | 2017-12-10 09:22 | PN ---
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 - Current Medication List Current Medications: Active Medications Acetaminophen (Tylenol -) 650 mg PO Q4H PRN PRN Reason: FEVER Last Admin: 12/09/17 21:16 Dose: 650 mg Apixaban (Eliquis -) 5 mg PO BID [facility] Last Admin: 12/09/17 21:17 Dose: 5 mg Atorvastatin Calcium (Lipitor -) 10 mg PO HS [facility] Last Admin: 12/09/17 21:17 Dose: 10 mg Collagenase (Santyl -) 1 applic TP DAILY [facility] Last Admin: 12/09/17 10:59 Dose: 1 applic Diltiazem HCl (Cardizem Cd -) 180 mg PO BID [facility] Last Admin: 12/09/17 21:17 Dose: 180 mg Ferrous Sulfate (Feosol -) 325 mg PO DAILY [facility] Last Admin: 12/09/17 10:58 Dose: 325 mg Levofloxacin (Levaquin 500 Mg Premixed Ivpb -) 500 mg in 100 mls @ 100 mls/hr IVPB DAILY [facility]; Protocol Last Admin: 12/09/17 11:03 Dose: 100 mls/hr Vancomycin HCl 1,000 mg/ (Dextrose) 250 mls @ 166.667 mls/hr IVPB DAILY@1500 D[facility]; Protocol Last Admin: 12/09/17 15:56 Dose: 166.667 mls/hr Metoprolol Succinate (Toprol Xl -) 100 mg PO DAILY [facility] Last Admin: 12/09/17 10:58 Dose: 100 mg Metoprolol Succinate (Toprol Xl -) 50 mg PO DAILY@1800 [facility] Last Admin: 12/09/17 17:26 Dose: 50 mg Montelukast Sodium (Singulair -) 10 mg PO HS [facility] Last Admin: 12/09/17 21:18 Dose: 10 mg Ondansetron HCl (Zofran Injection) 4 mg IVPB Q6H PRN PRN Reason: NAUSEA Last Admin: 12/02/17 02:21 Dose: 4 mg Pantoprazole Sodium (Protonix -) 40 mg PO DAILY [facility] Last Admin: 12/09/17 10:58 Dose: 40 mg Paroxetine HCl (Paxil -) 10 mg PO DAILY [facility] Last Admin: 12/09/17 10:59 Dose: 10 mg Sodium Chloride ([place] Nasal [place] -) 2 spray NS TID [facility] Last Admin: 12/10/17 06:28 Dose: Not Given - Objective Vital Signs: Vital Signs Temperature 98.9 F 12/10/17 09:01 Pulse Rate 102 H 12/10/17 09:01 Respiratory Rate 20 12/10/17 09:01 Blood Pressure 124/76 12/10/17 09:01 O2 Sat by Pulse Oximetry (%) 97 12/09/17 20:33 Constitutional: Yes: No Distress, Calm Neck: Yes: Supple Cardiovascular: Yes: Pulse Irregular, Murmur (2/6 SM) Respiratory: Yes: Regular, Cough, Diminished, On Nasal O2, SOB, Wheezes Gastrointestinal: Yes: Normal Bowel Sounds, Soft Edema: No Labs: CBC, BMP 12/10/17 05:30 12/10/17 05:30 INR, PTT INR 1.28 (0.82-1.09) H 12/01/17 18:56 - ....Imaging EKG: Report Reviewed (Tele: [facility]) Problem List - Problems (1) Hyperlipidemia Code(s): E78.5 - HYPERLIPIDEMIA, UNSPECIFIED Qualifiers: Hyperlipidemia type: pure hypercholesterolemia Qualified Code(s): E78.00 - Pure hypercholesterolemia, unspecified; E78.0 - Pure hypercholesterolemia (2) Diastolic heart failure Code(s): I50.30 - UNSPECIFIED DIASTOLIC (CONGESTIVE) HEART FAILURE Qualifiers: Heart failure chronicity: acute on chronic Qualified Code(s): I50.33 - Acute on chronic diastolic (congestive) heart failure (3) Hypertensive cardiopathy Code(s): I11.9 - HYPERTENSIVE HEART DISEASE WITHOUT HEART FAILURE Qualifiers: Heart failure presence: with heart failure (4) Pneumonia Code(s): J18.9 - PNEUMONIA, UNSPECIFIED ORGANISM Qualifiers: Pneumonia type: due to unspecified organism Laterality: unspecified laterality Lung location: unspecified part of lung Qualified Code(s): J18.9 - Pneumonia, unspecified organism (5) Aortic stenosis Code(s): I35.0 - NONRHEUMATIC AORTIC (VALVE) STENOSIS Qualifiers: Cardiac valve disease etiology: nonrheumatic Qualified Code(s): I35.0 - Nonrheumatic aortic (valve) stenosis (6) CHF (congestive heart failure) Code(s): I50.9 - HEART FAILURE, UNSPECIFIED Qualifiers: Heart failure type: diastolic Heart failure chronicity: acute on chronic Qualified Code(s): I50.33 - Acute on chronic diastolic (congestive) heart failure (7) Dyspnea Code(s): R06.00 - DYSPNEA, UNSPECIFIED Qualifiers: Dyspnea type: dyspnea on exertion Qualified Code(s): R06.09 - Other forms of dyspnea (8) PAF (paroxysmal atrial fibrillation) Code(s): I48.0 - PAROXYSMAL ATRIAL FIBRILLATION Assessment/Plan tele: AF, controlled rate echo 11/2017: nl lv/rv, jozef, mod-sev tr, mod as CXR: fluid new vs prior CT chest: bilat effusions, loculated fluid R fissure a/p: acute diast chf, and TR -Off diuretics pending renal recovery -rpt BMP today (ordered) -repeat echo shows mod as, unchanged from priors. -BNP 3K unchanged vs 09/02 -wt 170-174 when here 09/02. presently 176. -remains very sob with bendopnea which is new sx for her, likely represents high left heart filling pressures. 12/07-incr lasix to 80 iv daily--if no wt decline tomorrow and labs stable, would incr further (80 iv bid if good UOP response to 80 iv dose. otherwise add metolazone to 80 iv dose qd) 12/08: will give lasix 80 bid today 12/09: bun/cr bumped up and wt has remain unchanged so will dc iv lasix. resume lasix 40 po bid when cr normalizes. -AV gradients in moderate range, however ANDI 0.7 (using tech LVOT 2.0cm--if LVOT is smaller her ANDI would be even less. LVOT VTI measurement 15 is low, ? erroneous--vs possibility of paradoxical low-gradient, low-output severe with preserved LVEF here). -no S2 split heard on exam but soft sounds, decr carotid intensity (no PMI palpable). HOWEVER NO MURMUR PRESENT on my exam, hence doubt severe . more likely diast CHF with "innocent bystander" moderate . -agree her AV should be further interrogated to confirm no symptomatic, severe . this can be done with hi quality outpatient echo or outpt cath (once cellulitis is treated). no further inpatient evaluation of AV indicated 12/09 Acute on CKD resolving off diuretics, resume once renal fxn stable afib: -rate ok on current meds (Toprol and Cardizem) -cont eliquis for AC hld: -cont statin cellulitis: -on abx per ID R/o PNA: -empiric abx, BD, O2 as needed
[2017-12-10] MEDS ORDERED: PT OWN MED DRAWER 7, Y5N ONE (10:05)
[2017-12-10] MEDS: PARoxetine HCL 10 MG TABLET (FP) PO SCH (10:07)
[2017-12-10] MEDS: PANTOPRAZOLE 40 MG TABLET (FP) PO SCH (10:07)
[2017-12-10] MEDS: FERROUS SO4 325 MG TABLET (FP) PO SCH (10:07)
[2017-12-10] MEDS: APIXABAN 5 MG TABLET PO SCH (10:07)
[2017-12-10] MEDS: COLLAGENASE CLOSTRIDIUM HIST. 30 GRAMS TUBE TP SCH (11:01)
[2017-12-10 11:05] LABS: PLATELET ESTIMATE ADEQUATE
--- NOTE | 2017-12-10 12:38 | PN ---
Progress Note (short form) - Note Progress Note: Breathing and cough is slowly improving. No CP. No acute events overnight. Intake & Output 12/07/17 12/08/17 12/09/17 12/10/17 23:59 23:59 23:59 23:59 Intake Total 1010 760 820 50 Output Total 100 Balance 1010 660 820 50 Weight 176 lb 6 oz 176 lb 3 oz 176 lb 6.4 oz 176 lb 6.4 oz Last Vital Signs Temp Pulse Resp BP Pulse Ox 98.9 F 102 H 20 124/76 97 12/10/17 09:01 12/10/17 09:01 12/10/17 09:01 12/10/17 09:01 12/09/17 20:33 Active Medications Acetaminophen (Tylenol -) 650 mg PO Q4H PRN PRN Reason: FEVER Last Admin: 12/09/17 21:16 Dose: 650 mg Apixaban (Eliquis -) 5 mg PO BID [facility] Last Admin: 12/10/17 10:07 Dose: 5 mg Atorvastatin Calcium (Lipitor -) 10 mg PO [facility] Last Admin: 12/09/17 21:17 Dose: 10 mg Collagenase (Santyl -) 1 applic TP DAILY [facility] Last Admin: 12/10/17 11:01 Dose: 1 applic Diltiazem HCl (Cardizem Cd -) 180 mg PO BID [facility] Last Admin: 12/10/17 10:07 Dose: 180 mg Ferrous Sulfate (Feosol -) 325 mg PO DAILY [facility] Last Admin: 12/10/17 10:07 Dose: 325 mg Vancomycin HCl 1,000 mg/ (Dextrose) 250 mls @ 166.667 mls/hr IVPB DAILY@1500 [facility]; Protocol Last Admin: 12/09/17 15:56 Dose: 166.667 mls/hr Metoprolol Succinate (Toprol Xl -) 100 mg PO DAILY [facility] Last Admin: 12/10/17 10:07 Dose: 100 mg Metoprolol Succinate (Toprol Xl -) 50 mg PO DAILY@1800 [facility] Last Admin: 12/09/17 17:26 Dose: 50 mg Montelukast Sodium (Singulair -) 10 mg PO HS [facility] Last Admin: 12/09/17 21:18 Dose: 10 mg Ondansetron HCl (Zofran Injection) 4 mg IVPB Q6H PRN PRN Reason: NAUSEA Last Admin: 12/02/17 02:21 Dose: 4 mg Pantoprazole Sodium (Protonix -) 40 mg PO DAILY [facility] Last Admin: 12/10/17 10:07 Dose: 40 mg Paroxetine HCl (Paxil -) 10 mg PO DAILY [facility] Last Admin: 12/10/17 10:07 Dose: 10 mg Sodium Chloride ([place] Nasal [place] -) 2 spray NS TID [facility] Last Admin: 12/10/17 06:28 Dose: Not Given Gen: NAD at rest Heart: RRR Lung: decreased breath sounds at the bases Abd: soft, nontender Ext: + edema Laboratory Results - last 24 hr 12/09/17 12/10/17 12/10/17 12:45 05:30 05:30 WBC 7.8 RBC 3.43 L Hgb 9.5 L Hct 28.7 L MCV 83.5 MCH 27.8 MCHC 33.2 RDW 15.6 Plt Count 297 MPV 7.2 L Absolute Neuts (auto) 5.0 Total Counted 100 Neutrophils % 64.6 Neutrophils % (Manual) 65.0 Band Neutrophils % 1.0 Lymphocytes % 22.2 Lymphocytes % (Manual) 26.0 D Monocytes % 10.4 H Monocytes % (Manual) 8 Eosinophils % 2.5 D Basophils % 0.3 Nucleated RBC % 0 Platelet Estimate Adequate Sodium 139 Potassium 4.5 Chloride 97 L Carbon Dioxide 38 H Anion Gap 4 L BUN 39 H Creatinine 1.1 H Creat Clearance w eGFR 47.55 Random Glucose 113 H Lactic Acid 1.4 Calcium 8.5 Total Bilirubin 0.4 AST 25 ALT 58 Alkaline Phosphatase 94 Total Protein 5.8 L Albumin 2.9 L A/P Suspected Pneumonia Acute on Chronic Diastolic Heart Failure Aortic Stenosis Atrial Fibrillation - Levaquin completed yesterday / now on Vanco per ID - lasix - monitor urine output, creatinine - rate control - continue anticoagulation - inhaled bronchodilators - O2 as needed Dr Fish
--- NOTE | 2017-12-10 12:47 | PN ---
Progress Note, Physician Chief Complaint: patient lying in bed says her breathing is better no cp, completed iv abx for cellulits of LE diuretic held given elevated renal function - Current Medication List Current Medications: Active Medications Acetaminophen (Tylenol -) 650 mg PO Q4H PRN PRN Reason: FEVER Last Admin: 12/09/17 21:16 Dose: 650 mg Apixaban (Eliquis -) 5 mg PO BID [facility] Last Admin: 12/10/17 10:07 Dose: 5 mg Atorvastatin Calcium (Lipitor -) 10 mg PO HS [facility] Last Admin: 12/09/17 21:17 Dose: 10 mg Collagenase (Santyl -) 1 applic TP DAILY [facility] Last Admin: 12/10/17 11:01 Dose: 1 applic Diltiazem HCl (Cardizem Cd -) 180 mg PO BID [facility] Last Admin: 12/10/17 10:07 Dose: 180 mg Ferrous Sulfate (Feosol -) 325 mg PO DAILY [facility] Last Admin: 12/10/17 10:07 Dose: 325 mg Vancomycin HCl 1,000 mg/ (Dextrose) 250 mls @ 166.667 mls/hr IVPB DAILY@1500 [facility]; Protocol Last Admin: 12/09/17 15:56 Dose: 166.667 mls/hr Metoprolol Succinate (Toprol Xl -) 100 mg PO DAILY [facility] Last Admin: 12/10/17 10:07 Dose: 100 mg Metoprolol Succinate (Toprol Xl -) 50 mg PO DAILY@1800 [facility] Last Admin: 12/09/17 17:26 Dose: 50 mg Montelukast Sodium (Singulair -) [address] [facility] Last Admin: 12/09/17 21:18 Dose: 10 mg Ondansetron HCl (Zofran Injection) 4 mg IVPB Q6H PRN PRN Reason: NAUSEA Last Admin: 12/02/17 02:21 Dose: 4 mg Pantoprazole Sodium (Protonix -) 40 mg PO DAILY [facility] Last Admin: 12/10/17 10:07 Dose: 40 mg Paroxetine HCl (Paxil -) 10 mg PO DAILY [facility] Last Admin: 12/10/17 10:07 Dose: 10 mg Sodium Chloride ([place] Nasal [place] -) 2 spray NS TID [facility] Last Admin: 12/10/17 06:28 Dose: Not Given - Objective Vital Signs: Vital Signs Temperature 98.9 F 12/10/17 09:01 Pulse Rate 102 H 12/10/17 09:01 Respiratory Rate 20 12/10/17 09:01 Blood Pressure 124/76 12/10/17 09:01 O2 Sat by Pulse Oximetry (%) 97 12/09/17 20:33 Constitutional: Yes: Calm Cardiovascular: Yes: Regular Rate and Rhythm, S1, S2 Respiratory: Yes: Diminished Gastrointestinal: Yes: Normal Bowel Sounds, Soft Edema: Yes Neurological: Yes: Alert, Oriented Labs: CBC, BMP 12/10/17 05:30 12/10/17 05:30 INR, PTT INR 1.28 (0.82-1.09) H 12/01/17 18:56 Problem List - Problems (1) Diastolic heart failure Assessment/Plan: acute on chronic iv lasix which now held bc elevated renal function which is improving cr 1.4 to 1.1 and and bun from 47 to 39 trending down echo done- left ventricle systolic function is normal Code(s): I50.30 - UNSPECIFIED DIASTOLIC (CONGESTIVE) HEART FAILURE Qualifiers: Heart failure chronicity: acute on chronic Qualified Code(s): I50.33 - Acute on chronic diastolic (congestive) heart failure (2) Persistent atrial fibrillation Assessment/Plan: toprol xl and eliquis cardizem Code(s): I48.1 - PERSISTENT ATRIAL FIBRILLATION (3) Dyspnea Assessment/Plan: improving oxygen- humidified bronchodilators saline nasal sprays for dry nasal mucosa h/o asthma singulair Code(s): R06.00 - DYSPNEA, UNSPECIFIED Qualifiers: Dyspnea type: dyspnea on exertion Qualified Code(s): R06.09 - Other forms of dyspnea (4) Cellulitis Assessment/Plan: rafa- completed course ID on board PCN allergy wbc count is trending down now normal Code(s): L03.90 - CELLULITIS, UNSPECIFIED Qualifiers: Site of cellulitis of extremity: lower extremity Laterality: left Assessment/Plan patient will go home but will first need to check pulse oxygen to see if she needs home o2.
--- NOTE | 2017-12-10 12:50 | DS ---
Physical Examination Vital Signs: Vital Signs Temperature 98.9 F 12/10/17 09:01 Pulse Rate 102 H 12/10/17 09:01 Respiratory Rate 20 12/10/17 09:01 Blood Pressure 124/76 12/10/17 09:01 O2 Sat by Pulse Oximetry (%) 97 12/09/17 20:33 Constitutional: Yes: Calm Neck: Yes: Trachea Midline Cardiovascular: Yes: Regular Rate and Rhythm, S1, S2 Respiratory: Yes: CTA Bilaterally Gastrointestinal: Yes: Normal Bowel Sounds, Soft Edema: Yes Neurological: Yes: Alert Labs: CBC, BMP 12/10/17 05:30 12/10/17 05:30 Discharge Summary Reason For Visit: SEPSIS PNEUMONIA Current Active Problems Anxiety (Acute) Cellulitis (Acute) Diastolic heart failure (Acute) Hyperlipidemia (Acute) Hypertensive cardiopathy (Acute) Persistent atrial fibrillation (Acute) Pneumonia (Acute) Sepsis (Acute) Hospital Course: CHIEF COMPLAINT: headache, chest discomfort PCP: Anatoly HISTORY OF PRESENT ILLNESS: This is an 82 year old female with a significant PMH of Pneumonia in August who presented to the ED with shortness of breath, chest pain, headache. Pt also reports that she vomited today. ER course was notable for: (1) WBC 20.7 (2) CXR c/w PNA (3) lactic acid 2.5 Recent Travel: pt denies PAST MEDICAL HISTORY: HTN, HLD, afib, anemia, asthma, pneumonia PAST SURGICAL HISTORY: B/L cataract removal varicose vein surgery Social History: Smoking: pt denies Alcohol: pt denies Drugs: pt denies Family History: mother in her 80s, h/o asthma, "heart problems" father age 40, lung problem son age 51, [place] brother , liver disease, h/o ETOH patient in hospital : [facility] for cell[facility]is completed course dyspnea was on iv lasix persisitent afib on eliquis and cardizem oxygen started here [place] check pre and post if she qualifies for home oxygen Condition: Stable - Instructions - Home Medications Comprehensive Discharge Medication List: Ambulatory Orders Albuterol 2.5/Ipratropium 0.5 [Duoneb -] 1 amp NEB RQID #120 amp 09/11/17 Albuterol Sulfate 0.042% [Ventolin 0.042% (Half-Strength) -] 1 amp NEB Q4H PRN # 1 amp 09/11/17 Montelukast Sodium [Singulair] 10 mg PO DAILY #30 tablet 09/11/17 Diltiazem [Cardizem -] 240 mg PO HS 11/16/17 Apixaban [Eliquis] 2.5 mg PO DAILY 12/01/17 Ferrous Sulfate 324 mg PO DAILY 12/01/17 Fluticasone/Vilanterol [Breo Ellipta 100-25 Mcg INH] 1 each IH DAILY PRN Furosemide [Lasix] 80 mg PO DAILY 12/01/17 Metoprolol Tartrate [Lopressor -] 50 mg PO BID 12/01/17 Omeprazole 40 mg PO DAILY 12/01/17 Paroxetine HCl 10 mg PO DAILY 12/01/17
[2017-12-10 12:55] VITALS: BMI 30.2
[2017-12-10] MEDS ORDERED: FUROSEMIDE 40 MG TABLET (FP) PO SCH (14:00)
[2017-12-10 19:54] VITALS: BP 131/76; PULSE 87; TEMP 98.2
== END 2017-12-10 20:56 | disposition home or self-care (01) | DRG 720 ==
LOC: JER 17:30 → JERBED 21:06 → J4W 12-02 00:21
PROVIDERS: ADMIT Internal Medicine; ATTEND Family Medicine
DX: A41.9 Sepsis, unspecified organism (principal); J18.9 Pneumonia, unspecified organism; J45.909 Unspecified asthma, uncomplicated; R07.9 Chest pain, unspecified; E78.5 Hyperlipidemia, unspecified; F41.9 Anxiety disorder, unspecified; I48.1 Persistent atrial fibrillation; I11.0 Hypertensive heart disease with heart failure; I50.33 Acute on chronic diastolic (congestive) heart failure; L03.116 Cellulitis of left lower limb; I35.0 Nonrheumatic aortic (valve) stenosis; L97.529 Non-pressure chronic ulcer of other part of left foot with unspecified severity; Z88.0 Allergy status to penicillin; D64.9 Anemia, unspecified; E66.09 Other obesity due to excess calories; Z68.29 Body mass index [BMI] 29.0-29.9, adult; K20.9 Esophagitis, unspecified; E87.2 Acidosis
CPT/HCPCS: 36415; 71045-TC-FY; 71250-TC; 80048; 80053; 81003; 81015; 82550; 83036; 83605; 83735; 83880; 84100; 84443; 84484; 85025; 85027; 85610; 85730; 87040; 87086; 87899; 93005; 93010; 93306-TC; 93970-TC; 93971-TC; 94010; 94640; 94761; 97116-GP; 97161-GP; 99284-25; G0480; J0131; J7030; J7620

== ENCOUNTER 2021-04-25 16:55 | Observation (INO) | payer OTHER ==
[2021-04-25 22:11] LABS: BASO % 0.7 % (0-2.0); EOS % 0.5 % (0-4.5); HEMATOCRIT 41.3 % (32.4-45.2); HEMOGLOBIN 14.1 GM/dL (10.7-15.3); MCH 29.6 pg (25.7-33.7); MCHC 34.1 g/dl (32.0-36.0); MEAN CELL VOLUME 86.9 fl (80-96); MEAN PLT VOLUME 7.6 fl (7.5-11.1); NEUT % 79.8 % (42.8-82.8); PLATELET COUNT 296 10^3/uL (134-434); RBC 4.75 M/mm3 (3.60-5.2); RDW 17.3 % (11.6-15.6); WHITE BLOOD COUNT 9.9 K/mm3 (4.0-10.0)
[2021-04-25 22:19] LABS: INR 1.67 (0.83-1.09); PROTHROMBIN TIME (PATIENT) 18.8 SEC (9.7-13.0)
[2021-04-25 22:37] LABS: ALBUMIN 3.3 g/dl (3.4-5.0); BLOOD UREA NITROGEN 23.2 mg/dL (7-18); CALCIUM 9.3 mg/dL (8.5-10.1)
[2021-04-25 22:38] LABS: MAGNESIUM 2.5 mg/dL (1.8-2.4)
[2021-04-25 22:40] LABS: CREATININE 1.1 mg/dL (0.55-1.3); PHOSPHOROUS 4.4 mg/dL (2.5-4.9)
[2021-04-25 22:42] LABS: BILIRUBIN,TOTAL 0.8 mg/dL (0.2-1); TOT PROT 7.6 g/dl (6.4-8.2)
[2021-04-26 02:43] LABS: EPI CELLS 6 /uL (0-25.1); HYALINE CASTS 3 /uL (0-3.1); URINE APPEARANCE CLEAR; URINE BACTERIA >9,000 /uL (0-1359); URINE BILIRUBIN NEGATIVE (NEGATIVE); URINE COLOR YELLOW; URINE GLUCOSE (UA) NEGATIVE (NEGATIVE); URINE KETONE NEGATIVE (NEGATIVE); URINE LEUK ESTERASE NEGATIVE (NEGATIVE); URINE NITRITE NEGATIVE (NEGATIVE); URINE PROTEIN 2+ (NEGATIVE); URINE RBC 6 /uL (0-23.9); URINE WBC 19 /uL (0-25.8)
[2021-04-26] MEDS ORDERED: APIXABAN 2.5 MG TABLET ONE (10:18)
[2021-04-26] MEDS ORDERED: FERROUS SO4 325 MG TABLET (FP) ONE (10:19)
[2021-04-26] MEDS ORDERED: PT OWN MED DRAWER 7, Y5N ONE (10:19)
[2021-04-26] MEDS: FERROUS SO4 325 MG TABLET (FP) PO SCH (10:20)
[2021-04-26] MEDS ORDERED: PARoxetine HCL 10 MG TABLET ONE (10:20)
[2021-04-26] MEDS: LACTOBACILLUS ACIDOPHILUS 1 TABLET PO SCH (10:20)
[2021-04-26] MEDS: APIXABAN 2.5 MG TABLET PO SCH ×2 (10:20→21:19)
[2021-04-26] MEDS: PARoxetine HCL 10 MG TABLET PO SCH (10:20)
[2021-04-26] MEDS: FLUTICASONE/UMECLIDIN/VILANTER(200-62.5-25 TRELEGY ELLIPTA) INAHLER IH SCH (17:59)
[2021-04-26] MEDS: FAMOTIDINE 20 MG TABLET PO SCH (21:19)
[2021-04-26] MEDS: MONTELUKAST NA 10 MG TABLET PO SCH (21:19)
[2021-04-26] MEDS: ATORVASTATIN CA 10 MG TABLET (FP) PO SCH (21:19)
[2021-04-26] MEDS: DONEPEZIL HCL 5 MG TABLET (FP) PO SCH (21:19)
[2021-04-27] MEDS: LACTOBACILLUS ACIDOPHILUS 1 TABLET PO SCH (09:34)
[2021-04-27] MEDS: APIXABAN 2.5 MG TABLET PO SCH ×2 (09:35→21:48)
[2021-04-27] MEDS: PARoxetine HCL 10 MG TABLET PO SCH (09:35)
[2021-04-27] MEDS: FERROUS SO4 325 MG TABLET (FP) PO SCH (09:35)
[2021-04-27] MEDS: FLUTICASONE/UMECLIDIN/VILANTER(200-62.5-25 TRELEGY ELLIPTA) INAHLER IH SCH (11:26)
[2021-04-27] MEDS: ACETAMINOPHEN 500 MG TABLET (FP) PO PRN ×2 (17:02→23:52)
[2021-04-27] MEDS: DONEPEZIL HCL 5 MG TABLET (FP) PO SCH (21:48)
[2021-04-27] MEDS: ATORVASTATIN CA 10 MG TABLET (FP) PO SCH ×2 (21:49→23:00)
[2021-04-27] MEDS: MONTELUKAST NA 10 MG TABLET PO SCH (21:49)
[2021-04-27] MEDS: FAMOTIDINE 20 MG TABLET PO SCH (21:49)
[2021-04-28 09:17] LABS: BASO % 0.5 % (0-2.0); EOS % 1.2 % (0-4.5); HEMATOCRIT 43.6 % (32.4-45.2); HEMOGLOBIN 14.5 GM/dL (10.7-15.3); LYMPH % 10.4 % (8-40); MCH 29.9 pg (25.7-33.7); MCHC 33.2 g/dl (32.0-36.0); NEUT % 81.9 % (42.8-82.8); PLATELET COUNT 268 10^3/uL (134-434); RBC 4.85 M/mm3 (3.60-5.2); RDW 17.3 % (11.6-15.6); WHITE BLOOD COUNT 9.9 K/mm3 (4.0-10.0)
[2021-04-28] MEDS: LACTOBACILLUS ACIDOPHILUS 1 TABLET PO SCH (09:24)
[2021-04-28] MEDS: APIXABAN 2.5 MG TABLET PO SCH ×2 (09:24→21:44)
[2021-04-28] MEDS: PARoxetine HCL 10 MG TABLET PO SCH (09:25)
[2021-04-28] MEDS: FLUTICASONE/UMECLIDIN/VILANTER(200-62.5-25 TRELEGY ELLIPTA) INAHLER IH SCH (09:25)
[2021-04-28] MEDS: FERROUS SO4 325 MG TABLET (FP) PO SCH (09:25)
[2021-04-28 09:55] LABS: BLOOD UREA NITROGEN 19.7 mg/dL (7-18); CALCIUM 8.7 mg/dL (8.5-10.1); MAGNESIUM 2.4 mg/dL (1.8-2.4)
[2021-04-28 09:59] LABS: CREATININE 0.8 mg/dL (0.55-1.3)
[2021-04-28] MEDS ORDERED: POTASSIUM CHLORIDE TABS 20 MEQ TABLET.ER (FP) PO ONE (11:00)
[2021-04-28] MEDS ORDERED: PT OWN MED DRAWER 7, Y5N ONE ×5 (13:13→20:49)
[2021-04-28] MEDS: MUPIROCIN 2% TOPICAL OINTMENT 22 GM TUBE TP SCH ×2 (13:49→21:45)
[2021-04-28] MEDS: CEFUROXIME AXETIL 250 MG TABLET PO SCH ×2 (14:35→21:44)
[2021-04-28] MEDS: DONEPEZIL HCL 5 MG TABLET (FP) PO SCH (21:44)
[2021-04-28] MEDS: MONTELUKAST NA 10 MG TABLET PO SCH (21:44)
[2021-04-28] MEDS: ATORVASTATIN CA 10 MG TABLET (FP) PO SCH (21:45)
[2021-04-28] MEDS: FAMOTIDINE 20 MG TABLET PO SCH (21:45)
[2021-04-29] MEDS ORDERED: PT OWN MED DRAWER 7, Y5N ONE (09:00)
[2021-04-29] MEDS: LACTOBACILLUS ACIDOPHILUS 1 TABLET PO SCH (09:06)
[2021-04-29] MEDS: FERROUS SO4 325 MG TABLET (FP) PO SCH (09:06)
[2021-04-29] MEDS: APIXABAN 2.5 MG TABLET PO SCH ×2 (09:06→21:41)
[2021-04-29] MEDS: PARoxetine HCL 10 MG TABLET PO SCH (09:06)
[2021-04-29] MEDS: CEFUROXIME AXETIL 250 MG TABLET PO SCH ×2 (09:06→21:41)
[2021-04-29] MEDS: MUPIROCIN 2% TOPICAL OINTMENT 22 GM TUBE TP SCH ×2 (09:07→21:43)
[2021-04-29] MEDS: FLUTICASONE/UMECLIDIN/VILANTER(200-62.5-25 TRELEGY ELLIPTA) INAHLER IH SCH (09:12)
[2021-04-29 09:30] LABS: BASO % 0.8 % (0-2.0); EOS % 1.8 % (0-4.5); HEMATOCRIT 40.8 % (32.4-45.2); HEMOGLOBIN 13.8 GM/dL (10.7-15.3); LYMPH % 10.3 % (8-40); MCH 29.6 pg (25.7-33.7); MCHC 33.8 g/dl (32.0-36.0); MEAN CELL VOLUME 87.5 fl (80-96); MEAN PLT VOLUME 7.7 fl (7.5-11.1); MONO % 6.1 % (3.8-10.2); PLATELET COUNT 242 10^3/uL (134-434); RBC 4.66 M/mm3 (3.60-5.2); RDW 16.7 % (11.6-15.6); WHITE BLOOD COUNT 9.6 K/mm3 (4.0-10.0)
[2021-04-29 10:00] LABS: CALCIUM 9.1 mg/dL (8.5-10.1)
[2021-04-29 10:01] LABS: BLOOD UREA NITROGEN 19.2 mg/dL (7-18)
[2021-04-29 10:04] LABS: CREATININE 0.8 mg/dL (0.55-1.3)
[2021-04-29 10:05] LABS: BILIRUBIN,TOTAL 1.1 mg/dL (0.2-1)
[2021-04-29 10:06] LABS: TOT PROT 6.9 g/dl (6.4-8.2)
[2021-04-29] MEDS: FAMOTIDINE 20 MG TABLET PO SCH (21:41)
[2021-04-29] MEDS: DONEPEZIL HCL 5 MG TABLET (FP) PO SCH (21:41)
[2021-04-29] MEDS: MONTELUKAST NA 10 MG TABLET PO SCH (21:42)
[2021-04-29] MEDS: ATORVASTATIN CA 10 MG TABLET (FP) PO SCH (21:42)
[2021-04-30] MEDS ORDERED: PT OWN MED DRAWER 7, Y5N ONE ×2 (10:07→10:32)
[2021-04-30] MEDS: LACTOBACILLUS ACIDOPHILUS 1 TABLET PO SCH (10:11)
[2021-04-30] MEDS: FERROUS SO4 325 MG TABLET (FP) PO SCH (10:12)
[2021-04-30] MEDS: CEFUROXIME AXETIL 250 MG TABLET PO SCH ×2 (10:12→21:17)
[2021-04-30] MEDS: APIXABAN 2.5 MG TABLET PO SCH ×2 (10:12→21:17)
[2021-04-30] MEDS: PARoxetine HCL 10 MG TABLET PO SCH (10:13)
[2021-04-30] MEDS: FLUTICASONE/UMECLIDIN/VILANTER(200-62.5-25 TRELEGY ELLIPTA) INAHLER IH SCH (10:15)
[2021-04-30] MEDS: MUPIROCIN 2% TOPICAL OINTMENT 22 GM TUBE TP SCH ×2 (10:48→21:18)
[2021-04-30] MEDS: ACETAMINOPHEN 325 MG TABLET (FP) PO SCH ×2 (17:04→23:20)
[2021-04-30] MEDS: FAMOTIDINE 20 MG TABLET PO SCH (21:17)
[2021-04-30] MEDS: ATORVASTATIN CA 10 MG TABLET (FP) PO SCH (21:17)
[2021-04-30] MEDS: MONTELUKAST NA 10 MG TABLET PO SCH (21:17)
[2021-04-30] MEDS: DONEPEZIL HCL 5 MG TABLET (FP) PO SCH (21:17)
[2021-05-01] MEDS: ACETAMINOPHEN 325 MG TABLET (FP) PO SCH ×4 (06:24→23:37)
[2021-05-01] MEDS ORDERED: PT OWN MED DRAWER 7, Y5N ONE ×2 (09:57→20:49)
[2021-05-01] MEDS: PARoxetine HCL 10 MG TABLET PO SCH (10:19)
[2021-05-01] MEDS: APIXABAN 2.5 MG TABLET PO SCH ×2 (10:19→21:12)
[2021-05-01] MEDS: MUPIROCIN 2% TOPICAL OINTMENT 22 GM TUBE TP SCH ×2 (10:19→21:12)
[2021-05-01] MEDS: LACTOBACILLUS ACIDOPHILUS 1 TABLET PO SCH (10:19)
[2021-05-01] MEDS: FERROUS SO4 325 MG TABLET (FP) PO SCH (10:19)
[2021-05-01] MEDS: FLUTICASONE/UMECLIDIN/VILANTER(200-62.5-25 TRELEGY ELLIPTA) INAHLER IH SCH (10:20)
[2021-05-01] MEDS: CEFUROXIME AXETIL 250 MG TABLET PO SCH ×2 (10:21→21:12)
[2021-05-01] MEDS ORDERED: HYDROCORTISONE 1% TOPICAL CREAM 30 GM TUBE TP PRN (15:09)
[2021-05-01] MEDS: MONTELUKAST NA 10 MG TABLET PO SCH (21:12)
[2021-05-01] MEDS: ATORVASTATIN CA 10 MG TABLET (FP) PO SCH (21:12)
[2021-05-01] MEDS: DONEPEZIL HCL 5 MG TABLET (FP) PO SCH (21:12)
[2021-05-01] MEDS: FAMOTIDINE 20 MG TABLET PO SCH (21:12)
[2021-05-02] MEDS: ACETAMINOPHEN 325 MG TABLET (FP) PO SCH ×3 (05:00→17:41)
[2021-05-02 08:41] LABS: BASO % 0.4 % (0-2.0); EOS % 1.8 % (0-4.5); HEMATOCRIT 42.2 % (32.4-45.2); HEMOGLOBIN 13.9 GM/dL (10.7-15.3); LYMPH % 12.6 % (8-40); MCH 29.8 pg (25.7-33.7); MCHC 33.1 g/dl (32.0-36.0); MEAN CELL VOLUME 90.2 fl (80-96); MEAN PLT VOLUME 8.2 fl (7.5-11.1); MONO % 6.2 % (3.8-10.2); PLATELET COUNT 229 10^3/uL (134-434); RBC 4.67 M/mm3 (3.60-5.2); RDW 17.1 % (11.6-15.6); WHITE BLOOD COUNT 8.1 K/mm3 (4.0-10.0)
[2021-05-02 09:39] LABS: ALBUMIN 2.9 g/dl (3.4-5.0); BLOOD UREA NITROGEN 20.8 mg/dL (7-18); CALCIUM 8.7 mg/dL (8.5-10.1)
[2021-05-02 09:40] LABS: CREATININE 0.8 mg/dL (0.55-1.3)
[2021-05-02 09:41] LABS: BILIRUBIN,TOTAL 0.6 mg/dL (0.2-1); TOT PROT 6.5 g/dl (6.4-8.2)
[2021-05-02] MEDS ORDERED: PT OWN MED DRAWER 7, Y5N ONE (10:38)
[2021-05-02] MEDS: LACTOBACILLUS ACIDOPHILUS 1 TABLET PO SCH (10:45)
[2021-05-02] MEDS: FUROSEMIDE 40 MG TABLET (FP) PO SCH (10:45)
[2021-05-02] MEDS: APIXABAN 2.5 MG TABLET PO SCH ×2 (10:45→21:25)
[2021-05-02] MEDS: PARoxetine HCL 10 MG TABLET PO SCH (10:46)
[2021-05-02] MEDS: FERROUS SO4 325 MG TABLET (FP) PO SCH (10:46)
[2021-05-02] MEDS: CEFUROXIME AXETIL 250 MG TABLET PO SCH ×2 (10:46→21:25)
[2021-05-02] MEDS: FLUTICASONE/UMECLIDIN/VILANTER(200-62.5-25 TRELEGY ELLIPTA) INAHLER IH SCH (10:47)
[2021-05-02] MEDS: MUPIROCIN 2% TOPICAL OINTMENT 22 GM TUBE TP SCH ×2 (10:48→21:25)
[2021-05-02] MEDS: DONEPEZIL HCL 5 MG TABLET (FP) PO SCH (21:24)
[2021-05-02] MEDS: ATORVASTATIN CA 10 MG TABLET (FP) PO SCH (21:24)
[2021-05-02] MEDS: FAMOTIDINE 20 MG TABLET PO SCH (21:25)
[2021-05-02] MEDS: MONTELUKAST NA 10 MG TABLET PO SCH (21:25)
[2021-05-03] MEDS: ACETAMINOPHEN 325 MG TABLET (FP) PO SCH ×4 (01:01→17:50)
[2021-05-03] MEDS ORDERED: PARoxetine HCL 20 MG TABLET PO SCH (10:00)
[2021-05-03] MEDS: APIXABAN 2.5 MG TABLET PO SCH (10:31)
[2021-05-03] MEDS: FERROUS SO4 325 MG TABLET (FP) PO SCH (10:31)
[2021-05-03] MEDS: FUROSEMIDE 40 MG TABLET (FP) PO SCH (10:31)
[2021-05-03] MEDS: CEFUROXIME AXETIL 250 MG TABLET PO SCH (10:31)
[2021-05-03] MEDS: LACTOBACILLUS ACIDOPHILUS 1 TABLET PO SCH (10:31)
[2021-05-03] MEDS: FLUTICASONE/UMECLIDIN/VILANTER(200-62.5-25 TRELEGY ELLIPTA) INAHLER IH SCH (10:33)
[2021-05-03] MEDS: MUPIROCIN 2% TOPICAL OINTMENT 22 GM TUBE TP SCH (10:34)
[2021-05-03] MEDS ORDERED: PT OWN MED DRAWER 7, Y5N ONE (10:51)
[2021-05-03 12:50] VITALS: BMI 28.5
[2021-05-03 15:45] VITALS: BP 136/63; PULSE 92; TEMP 98.2
== END 2021-05-03 21:15 ==
LOC: JER 16:55 → UNDOADMOB 04-26 01:21 → INTOOBSV 04-26 01:21 → JERBED 04-26 01:21 → J8W 04-26 14:20 → JERBED 04-27 09:54 → J8W 04-27 09:54
PROVIDERS: ATTEND Family Medicine
DX: N39.0 Urinary tract infection, site not specified (principal); R26.89 Other abnormalities of gait and mobility; I50.9 Heart failure, unspecified; I10 Essential (primary) hypertension; E78.5 Hyperlipidemia, unspecified; Z79.01 Long term (current) use of anticoagulants; J45.909 Unspecified asthma, uncomplicated; D64.9 Anemia, unspecified; Z98.49 Cataract extraction status, unspecified eye; L98.499 Non-pressure chronic ulcer of skin of other sites with unspecified severity; F03.90 Unspecified dementia, unspecified severity, without behavioral disturbance, psychotic disturbance, mood disturbance, and anxiety; M25.60 Stiffness of unspecified joint, not elsewhere classified; F41.8 Other specified anxiety disorders; R41.3 Other amnesia; R53.1 Weakness; I48.91 Unspecified atrial fibrillation; G92.8 Other toxic encephalopathy; R01.1 Cardiac murmur, unspecified; R00.8 Other abnormalities of heart beat; Z91.013 Allergy to seafood; Z91.018 Allergy to other foods
CPT/HCPCS: 36415; 70450-TC; 71045-TC-FY; 71250-TC; 80048; 80053; 81003; 82550; 83735; 84100; 84439; 84443; 84484; 85025; 85610; 87040; 87086; 87186; 93005; 93010; 97116-GP; 97161-GP; 99285-25; C9803; G0378; U0003; U0005

== ENCOUNTER 2021-05-18 19:06 | Inpatient (IN) | payer OTHER ==
[2021-05-18 19:54] VITALS: BMI 29.3
[2021-05-18 20:09] LABS: VENOUS BASE EXCESS 1.1 mmol/L (-2-2); VENOUS O2 SATURATION 35.1 % (70-80); VENOUS PCO2 57.3 mmHg (38-52); VENOUS PH 7.315 (7.310-7.410)
[2021-05-18 20:14] LABS: EPI CELLS 5 /uL (0-25.1); HYALINE CASTS 5 /uL (0-3.1); URINE APPEARANCE CLEAR; URINE BACTERIA 1 /uL (0-1359); URINE BILIRUBIN NEGATIVE (NEGATIVE); URINE COLOR DK YELLOW; URINE GLUCOSE (UA) NEGATIVE (NEGATIVE); URINE KETONE NEGATIVE (NEGATIVE); URINE LEUK ESTERASE NEGATIVE (NEGATIVE); URINE NITRITE NEGATIVE (NEGATIVE); URINE PROTEIN 1+ (NEGATIVE); URINE RBC 17 /uL (0-23.9); URINE WBC 3 /uL (0-25.8)
[2021-05-18 20:15] LABS: INR 1.73 (0.83-1.09); PROTHROMBIN TIME (PATIENT) 19.5 SEC (9.7-13.0)
[2021-05-18 20:17] LABS: BASO % 0.6 % (0-2.0); EOS % 4.9 % (0-4.5); HEMATOCRIT 40.3 % (32.4-45.2); HEMOGLOBIN 13.1 GM/dL (10.7-15.3); LYMPH % 16.9 % (8-40); MCH 29.7 pg (25.7-33.7); MCHC 32.6 g/dl (32.0-36.0); MEAN CELL VOLUME 91.4 fl (80-96); MEAN PLT VOLUME 8.3 fl (7.5-11.1); MONO % 8.5 % (3.8-10.2); NEUT % 69.1 % (42.8-82.8); PLATELET COUNT 191 10^3/uL (134-434); RBC 4.41 M/mm3 (3.60-5.2); RDW 16.8 % (11.6-15.6); WHITE BLOOD COUNT 8.3 K/mm3 (4.0-10.0)
[2021-05-18 20:18] LABS: ACTIVATED PTT 29.6 SECONDS (25.2-36.5)
[2021-05-18 20:23] LABS: CHLORIDE 107 mmol/L (98-107); SODIUM 143 mmol/L (136-145)
[2021-05-18 20:25] LABS: CALCIUM 7.9 mg/dL (8.5-10.1)
[2021-05-18 20:26] LABS: ALBUMIN 2.4 g/dl (3.4-5.0); ANION GAP 8 MMOL/L (8-16); BLOOD UREA NITROGEN 32.5 mg/dL (7-18); CO2 27 mmol/L (21-32); GLUCOSE,RANDOM 83 mg/dL (74-106)
[2021-05-18 20:29] LABS: CREATININE 1.1 mg/dL (0.55-1.3); SGOT/AST 27 U/L (15-37); SGPT/ALT 20 U/L (13-61)
[2021-05-18 20:31] LABS: BILIRUBIN,TOTAL 0.3 mg/dL (0.2-1); TOT PROT 5.9 g/dl (6.4-8.2)
[2021-05-18 20:32] LABS: ALK PHOS 86 U/L (45-117)
[2021-05-18] MEDS ORDERED: ASPIRIN 300 MG SUPP.RECT PR ONE (20:39)
[2021-05-18] MEDS ORDERED: ASPIRIN 300 MG SUPP.RECT RC ONE (20:44)
[2021-05-18 20:46] LABS: METHADONE, UR NEGATIVE (NEGATIVE); PHENCYCLIDINE,URINE NEGATIVE (NEGATIVE); URINE BARBITURATES NEGATIVE (NEGATIVE); URINE BENZODIAZEPINES NEGATIVE (NEGATIVE)
[2021-05-18 20:47] LABS: COCAINE, UR NEGATIVE (NEGATIVE); OPIATES, URI NEGATIVE (NEGATIVE); URINE AMPHETAMINES NEGATIVE (NEGATIVE)
[2021-05-18] MEDS ORDERED: VANCOMYCIN 1 GM PREMIX - 1 GM/200 ML BAG IVPB ONE (23:35)
[2021-05-18] MEDS ORDERED: CEFEPIME HCL/D5W 2 GM/50 ML BAG IVPB ONE (23:35)
[2021-05-18] MEDS ORDERED: CEFEPIME HCL/D5W 1 GM/50 ML BAG IVPB ONE (23:36)
[2021-05-18 23:56] LABS: ARTERIAL BLD GAS O2 SATURATION 96.9 % (95-98); ARTERIAL BLOOD GAS BASE EXCESS 0.1 mmol/L (-2-2); ARTERIAL BLOOD GAS PO2 89.9 mmHg (80-100); ARTERIAL BLOOD GAS pH 7.402 (7.350-7.450)
[2021-05-18 23:57] LABS: ALLENS TEST POSITIVE
[2021-05-19] MEDS ORDERED: VANCOMYCIN 1 GRAM (PRE-DOCKED) 1,000 MG/250 ML BAG IVPB ONE ×2 (00:24→09:30)
[2021-05-19] MEDS ORDERED: CEFEPIME 1 GM/100 ML BAG IVPB ONE (00:25)
[2021-05-19] MEDS ORDERED: POLYETHYLENE GLYCOL (HEALTHYLAX) 3350 17 GM PACKET PO PRN (03:15)
[2021-05-19 07:36] LABS: CHLORIDE 105 mmol/L (98-107); SODIUM 142 mmol/L (136-145)
[2021-05-19 07:42] LABS: BASO % 0.5 % (0-2.0); EOS % 3.5 % (0-4.5); HEMATOCRIT 44.2 % (32.4-45.2); HEMOGLOBIN 14.2 GM/dL (10.7-15.3); LYMPH % 13.3 % (8-40); MCH 29.4 pg (25.7-33.7); MCHC 32.1 g/dl (32.0-36.0); MEAN CELL VOLUME 91.7 fl (80-96); MEAN PLT VOLUME 8.2 fl (7.5-11.1); MONO % 5.9 % (3.8-10.2); NEUT % 76.8 % (42.8-82.8); PLATELET COUNT 181 10^3/uL (134-434); RBC 4.82 M/mm3 (3.60-5.2); WHITE BLOOD COUNT 11.3 K/mm3 (4.0-10.0)
[2021-05-19 07:44] LABS: CALCIUM 8.3 mg/dL (8.5-10.1)
[2021-05-19 07:45] LABS: ANION GAP 10 MMOL/L (8-16); CO2 26 mmol/L (21-32); GLUCOSE,RANDOM 74 mg/dL (74-106); MAGNESIUM 2.4 mg/dL (1.8-2.4)
[2021-05-19 07:50] LABS: CREATININE 1.1 mg/dL (0.55-1.3)
[2021-05-19] MEDS ORDERED: DIGOXIN 0.5 MG/2 ML AMPUL IVPUSH ONE (08:25)
[2021-05-19] MEDS ORDERED: ACETAMINOPHEN INJECTION 100 ML IVPB ONE ×2 (08:31→22:20)
[2021-05-19] MEDS: ACETAMINOPHEN 1000 MG/100 ML VIAL IVPB PRN ×2 (08:40→22:28)
[2021-05-19 08:48] LABS: PLATELET ESTIMATE NORMAL
[2021-05-19] MEDS ORDERED: VANCOMYCIN 1 GM in D5W (PRE-DOCKED) 1,000 MG/250 ML IVPB SCH (10:00)
[2021-05-19] MEDS ORDERED: CEFEPIME 2 GM in DEXTROSE 5%-WATER 2 GM/100 ML BAG IVPB SCH ×2 (10:45→22:00)
[2021-05-19] MEDS ORDERED: CEFEPIME HCL/D5W 2 GM/50 ML BAG IVPB SCH (10:45)
[2021-05-19] MEDS ORDERED: CEFTRIAXONE 1 GM/50 ML BAG ONE (14:02)
[2021-05-19] MEDS: CEFTRIAXONE 1 GM in DEXTROSE 5%-WATER - 50 ML IVPB SCH (14:03)
[2021-05-19] MEDS ORDERED: DIGOXIN 0.5 MG/2 ML AMPUL ONE ×2 (14:42→22:20)
[2021-05-19] MEDS: DIGOXIN 0.5 MG/2 ML AMPUL IVPUSH SCH ×2 (14:58→22:28)
[2021-05-20] MEDS ORDERED: VANCOMYCIN 1 GRAM (PRE-DOCKED) 1,000 MG/250 ML BAG IVPB SCH (10:00)
[2021-05-20] MEDS ORDERED: VANCOMYCIN 1 GRAM (PRE-DOCKED) 1,000 MG/250 ML BAG IVPB ONE (10:06)
[2021-05-20] MEDS ORDERED: CEFTRIAXONE 1 GM/50 ML BAG ONE (10:23)
[2021-05-20] MEDS: CEFTRIAXONE 1 GM in DEXTROSE 5%-WATER - 50 ML IVPB SCH (10:34)
[2021-05-20] MEDS ORDERED: ASPIRIN 81 MG CHEWABLE TABLETS PO SCH (14:30)
[2021-05-20] MEDS ORDERED: APIXABAN 2.5 MG TABLET PO SCH (22:00)
[2021-05-21 03:32] VITALS: BP 153/78; PULSE 115; TEMP 98
== END 2021-05-21 09:00 | disposition expired | DRG 871 ==
LOC: JER 19:06 → JERBED 22:34 → J4W 05-20 23:38
PROVIDERS: ADMIT Internal Medicine; ATTEND Family Medicine
PROC: 5A12012 Performance of Cardiac Output, Single, Manual (ICD-10-PCS; principal; 2021-05-21)
DX: A41.9 Sepsis, unspecified organism (principal); J18.9 Pneumonia, unspecified organism; G92.9 Unspecified toxic encephalopathy; J96.90 Respiratory failure, unspecified, unspecified whether with hypoxia or hypercapnia; J98.11 Atelectasis; I31.3 Pericardial effusion (noninflammatory); I50.32 Chronic diastolic (congestive) heart failure; L97.329 Non-pressure chronic ulcer of left ankle with unspecified severity; N39.0 Urinary tract infection, site not specified; I46.9 Cardiac arrest, cause unspecified; K11.21 Acute sialoadenitis; J45.909 Unspecified asthma, uncomplicated; D64.9 Anemia, unspecified; E78.5 Hyperlipidemia, unspecified; I48.0 Paroxysmal atrial fibrillation; F03.90 Unspecified dementia, unspecified severity, without behavioral disturbance, psychotic disturbance, mood disturbance, and anxiety; E86.0 Dehydration; I95.9 Hypotension, unspecified
CPT/HCPCS: 36415; 36600; 70450-TC; 71045-TC-FY; 71250-TC; 74176-TC; 80048; 80053; 80307; 81003; 82550; 82803; 82962; 83605; 83735; 83880; 84484; 85025; 85610; 85730; 86850; 86900; 86901; 87040; 87086; 87899; 93005; 93010; 93306-TC; 99285-25; C9803; J0131; U0003; U0005